=== PATIENT | male | born 1950 | race Caucasian/White ===

== ENCOUNTER → 2020-08-17 10:36 | Outpatient (REF) | payer MEDICARE, SELFPAY | LOC: ANHLAB 10:36 | PROVIDERS: PCP Family Medicine; Visit Provider Nurse Practitioner | DX: C44.529 Squamous cell carcinoma of skin of other part of trunk (principal) | CPT/HCPCS: 88305 ==

== ENCOUNTER → 2020-10-04 09:13 | Outpatient (REF) | payer MEDICARE, SELFPAY | LOC: ANHLAB 09:13 | PROVIDERS: PCP Family Medicine; Visit Provider Nurse Practitioner | DX: C44.529 Squamous cell carcinoma of skin of other part of trunk (principal); D22.5 Melanocytic nevi of trunk | CPT/HCPCS: 88305; 88331 ==

== ENCOUNTER 2024-11-13 13:14 | Outpatient (CLI) | payer MEDICARE, SELFPAY ==
--- OUTSIDE RECORDS SUMMARY | 2024-11-13 13:26 | XMS_ITS | Clinical Summary ---
Author Organization [facility] Medical Office Building B Address [address] [place] [address] Care Team Providers Care Fitness Centre Manager Name Role Phone Padma Schwartz MD Unavailable Suleiman Del Cid MD Unavailable Abhijit Jeter MD Unavailable [phone] Rafat Oswald MD Primary Care Provider [phone] Allergies No known active allergies Medications meclizine (ANTIVERT) 12.5 mg tablet Take 1 tablet (12.5 mg total) by mouth 3 (three) times a day as needed for dizziness Active mesalamine (LIALDA) 1.2 gram EC tablet Take 2 tablets (2.4 g total) by mouth daily 180 tablet 3 4 04/21/20 25 Active famotidine (PEPCID) 40 mg tablet Take 1 tablet (40 mg total) by mouth daily 90 tablet 3 4 Active mesalamine (CANASA) 1,000 mg suppository UNWRAP AND INSERT 1 SUPPOSITORY(1 000 MG) RECTALLY EVERY NIGHT 90 suppository 4 Active Active Problems Problem Noted Date Diagnosed Date Sensorineural hearing loss (SNHL) of both ears 0 12/03/2023 Assessment & Plan (12/03/2023 2:44 PM ROLL OR TAPE EDGE MACHINE OPERATOR): Hearing test 48 ounces of caffeine free and soda free fluid daily Consider physical therapy for neck Tinnitus 12/03/2023 Assessment & Plan (12/03/2023 2:44 PM ROLL OR TAPE EDGE MACHINE OPERATOR): Hearing test 48 ounces of caffeine free and soda free fluid daily Consider physical therapy for neck Ulcerative pancolitis without complication ([facility]) 04/26/2023 Gastroesophageal reflux dise ase with esophagitis without hemorrhage 04/26/2023 Neck pain, chronic 04/19/2023 Assessment & Plan (04/19/2023 9:53 AM CDT): Worsening neck pain associated with headaches Hx of DDD - seen by neurosurgeon which said no need for surgical intervention unless he has extremity issues States that he does have some dizziness at times Acute left-sided low back pain with left-sided s ciatica 12/03/2022 Schatzki's ring 06/28/2022 Vision changes 02/27/2022 Assessment & Plan (03/03/2022 10:16 PM CDT): Patient requests referral to hot stick worker, referral placed. Ulcerative rectosigmoiditis without complication ([facility]/HCC) 12/07/2021 Assessment & Plan (03/07/2023 8:01 PM CDT): Stable. Cont. Current prescription medications, mesalamine. Managed by GI. Esophageal dysphagia 12/06/2021 Tubular adenoma of colon 12/06/2021 History of vertigo 02/24/2021 Oscillopsia 12/10/2020 Degenerative disc disease, cervical 12/08/2020 Lightheadedness 12/03/2020 Assessment & Plan (12/03/2023 2:44 PM ROLL OR TAPE EDGE MACHINE OPERATOR): Hearing test 48 ounces of caffeine free and soda free fluid daily Consider physical therapy for neck Assessment & Plan (12/03/2020 8:11 PM ROLL OR TAPE EDGE MACHINE OPERATOR): Mildly symptomatic. Trial of meclizine. Patient will let me know the name of the PT company he would like for me to refer him to. Go to nearest ER if S/Sxs worsen. C-Spine xrays ordered. Chronic pain of right knee 12/03/2020 Assessment & Plan (12/03/2020 8:12 PM ROLL OR TAPE EDGE MACHINE OPERATOR): Requested referral to Ortho for further eval./mgmt. Gastroesophageal reflux disease without esophagi tis 02/24/2020 Assessment & Plan (04/19/2023 9:54 AM CDT): Continue pantoprazole 40 mg every day especially in setting of ibuprofen use for pain Assessment & Plan (03/07/2023 8:02 PM CDT): Asymptomatic. Stable. Continue current prescription medications, Protonix, famotidine, managed by GI. Assessment & Plan (02/24/2021 8:31 PM CDT): Clinically improved, continue current meds. BMI 27.0-27.9,adult 02/24/2020 History of colonic polyps 10/20/2019 Overview (10/20/2019): Added automatically from request for surgery [id number] Assessment & Plan (10/20/2019 11:10 AM ROLL OR TAPE EDGE MACHINE OPERATOR): Overdue for colonoscopy. Will have him set this up today. TADEO (obstructive sleep apnea) 11/19/2018 Assessment & Plan (02/25/2020 8:35 AM CDT): Managed by sleep medicine. Assessment & Plan (11/19/2018 1:32 PM ROLL OR TAPE EDGE MACHINE OPERATOR): Non-compliant with CPAP because cannot tolerate mask Will contact us with company name Sleep study done about 15-20 years ago Sleep study was done at [facility] Pt. Does snore, wakes up coughing, choking like reports heavy snoring and sounds Reports that he does get sleepy during the day if he sits down and sometimes falls asleep Explained to him the risk on ongoing uncontrolled/untreated TADEO Benign prostatic hyperplasia without lower urinary tract symptoms 11/19/2018 Overview (11/19/2018): S/P Turp Followed by Dr. Jose Jeter Assessment & Plan (02/25/2020 8:35 AM CDT): Managed by Urologist. Assessment & Plan (11/19/2018 1:30 PM ROLL OR TAPE EDGE MACHINE OPERATOR): S/P TURP Followed by Dr. Joes Jeter Needs Referral Symptoms improved since TURP Benign neoplasm of large intestine 02/21/2014 Overview (01/12/2017): BENIGN NEOPLASM LG BOWEL Resolved Problems Problem Noted Date Diagnosed Date Resolved Date Choking in adult 12/06/2021 03/01/2023 Benign paroxysmal positional vertigo of right ear 01/19/2021 02/24/2021 Assessment & Plan (02/22/2021 10:49 AM CDT): Resolved 64 ounces of caffeine free and soda free fluid daily Call if room spinning returns Call if Neurology referral requested for memory impairment Assessment & Plan (01/19/2021 2:13 PM CDT): Right Posterior Benign Positional Vertigo treated with Nhung maneuver today Follow up in a few weeks May perform mild neck stretching exercises Post-Nhung instruction discussed and Handout provided Benign paroxysmal positional vertigo of left ear 01/07/2021 02/24/2021 Assessment & Plan (02/22/2021 10:46 AM CDT): Resolved today 64 ounces of caffeine free and soda free fluid daily Call if room spinning returns Assessment & Plan (01/07/2021 9:13 AM CDT): Left Benign Positional Vertigo treated with Nhung Maneuver today Post-Nhung instruction discussed and Handout provided Ulcerative colitis with complication 10/20/2019 03/01/2023 Overview (10/20/2019): Added automatically from request for surgery [id number] Assessment & Plan (02/24/2021 8:31 PM CDT): Asx. Continue current therapy. Assessment & Plan (12/03/2020 8:11 PM ROLL OR TAPE EDGE MACHINE OPERATOR): Asx, labs ordered. Assessment & Plan (02/25/2020 8:35 AM CDT): Managed by GI. Assessment & Plan (10/20/2019 11:09 AM ROLL OR TAPE EDGE MACHINE OPERATOR): Pt appears to have mild UC disease. Last colonoscopy showed inflammatory changes in rectum and distal sigmoid. Pt says he is not on daily medication and usually does not have symptoms. He has had 2 flares in the last 6 years which were cleared up by about 1 month use of Canasa suppository and budesonide 3mg daily. Will start on Canasa suppositories every night for at least 1-2 months and budesonide taper over 1 month. Will setup colonoscopy as patient is overdue. If patient continues to have symptoms after finishing budesonide, he should contact our office. Pt verbalized understanding. Bronchitis 11/04/2015 11/19/2018 Overview (01/11/2017): Bronchitis Immunizations Name Administration Dates Next Due COVID-19 mRNA (O[employer]) 0.3 m L (30 mcg) vaccine (12 years and up) 07/03/2023 Influenza, Quad, Adjuvantate d, Intramuscular 06/29/2022 Influenza, Quadrivalent, Hig h Dose, Preservative Free, Intrr 07/03/2023,06/27/2021,05/25/2020 Influenza, Quadrivalent, Spl it, Intramuscular 07/27/2015 Influenza, Quadrivalent, Spl it, Preservative Free, Intramuscular 07/10/2018,07/09/2018 Influenza, Split 08/24/2009 Influenza, Trivalent, High D ose, Split, Preservative Free, Intramuscular 07/15/2019,07/03/2018,07/15/2017 Influenza, Trivalent, IM (MDV) 07/25/2013,2011,08/11/2009 Influenza, Trivalent, Preser vative Free, Intramuscular 07/11/2016,07/13/2015,07/27/2014,07/25,09/11/2012 Pneumococcal Conjugate PCV 13 07/23/2016 Pneumococcal Conjugate Pcv20 07/03/2023 Pneumococcal Polysaccharide PPV23 11/19/2018 TD Preservative Free 05/21/2013 Tdap 07/15/2017,08/08/2007 ZOSTER LIVE 08/21/2013 Surgical History Surgery Date Site/Laterality Comments OTHER SURGICAL HISTORY 10/08/2007 - 10/07/2008 left inguinal hernia: herniorraphy OTHER SURGICAL HISTORY 10/08/1973 - 10/07/1974 tympanic rupture: surgical repair HERNIA REPAIR COLONOSCOPY 07/19/2016 COLONOSCOPY 12/03/2019 Medical History Medical History Date Comments Hx Other Medical left inguinal h ernia Hx Other Medical tympanic ruptur e; Laterality: right Sleep apnea Ulcerative colitis (HCC) GERD (gastroesophageal reflux disease) Family History Medical History Relation Name Comments Insomnia Mother Relation Name Status Comments Father Mother Alive Social History Tobacco Use Types Packs/Day Years Used Date Smoking Tobacco: Former Cigarettes 0.3 10 0 10/08/1969 - 10/08/1979 Smokeless Tobacco: Never Tobacco Cessation:Counseling Given: Not Answered Comments:Occasional cannabis use Alcohol Use Standard Drinks/Week Comments No 0 (1 standard drink = 0.6 oz pur e alcohol) AUDIT-C Answer Date Recorded Q1: How often do you have a drink containing alcohol? 4 or more times a week 04/21/2024 Q2: How many drinks containi ng alcohol do you have on a typical day when you are drinking? 3 or 4 Q3: How often do you have si x or more drinks on one occasion? Weekly 04/21/2024 PHQ-2 Answer Date Recorded PHQ-2 Total Score (If total score is 3 or more points, staff should administer the PHQ-9) 0 02/22/2023 Personal Safety Answer Date Recorded Getting School Help Needed Not on file 09/24 Sex and Gender Information Value Date Recorded Sex Assigned at Not on file Legal Sex Male 11:54 PM ROLL OR TAPE EDGE MACHINE OPERATOR Gender Identity Male 11/01/2021 11:42 AM ROLL OR TAPE EDGE MACHINE OPERATOR Sexual Orientation Not on file Obstetrics History Last Filed Vital Signs Vital Sign Reading Time Taken Comments Blood Pressure 149/70 04/21/2024 2:05 PM CDT Pulse 76 04/21/2024 2:05 PM CDT Temperature 36.5 C (97.7 F) 12/03/2023 2:04 PM ROLL OR TAPE EDGE MACHINE OPERATOR Respiratory Rate 16 04/19/2023 9:34 AM CDT Oxygen Saturation 99% 04/21/2024 2:05 PM CDT Inhaled Oxygen Concentration - - Weight 89.4 kg (197 lb) 04/21/2024 2:05 PM CDT Height 182.9 cm (6') 04/21/2024 2:05 PM CDT Body Mass Index 26.72 04/21/2024 2:05 PM CDT Plan of Treatment Upcoming Encounters Date Type Department Care Team (Late st Contact Info) Description 11/19/2024 11:35 AM ROLL OR TAPE EDGE MACHINE OPERATOR Hospital Encounter [facility] [address] [place] [address] Padma Schwartz MD [address] [place] [address] 11/19/2024 11:35 AM ROLL OR TAPE EDGE MACHINE OPERATOR - 11/19/2024 12:05 PM ROLL OR TAPE EDGE MACHINE OPERATOR Surgery [address] [address] Padma Schwartz MD [address] [place] [address] COLONOSCOPY Scheduled Procedures Name Priority Associated Diagnoses Date/Ti me COLONOSCOPY Ulcerative pancolitis without complication (CMS/HCC) (HCC) Tubular adenoma of colon 11/19/2024 11:35 AM ROLL OR TAPE EDGE MACHINE OPERATOR Health Maintenance Due Date Last Done Comments Hepatitis B Screening 1968 Zoster Vaccine (2 of 3) 10/16/2013 08/21/2013 Depression Screening 03/01/2024 03/01/2023, 11/29/2022, 02/27/2022, Additional history exists Fall Risk Assessment 03/01/2024 03/01/2023, 11/29/2022, 02/27/2022, Additional history exists Well Visit 65+ 03/01/2024 03/01/2023, 02/06, 02/24/2021, Additional history exists Covid-19 Vaccine (2023- 5 season) 2024 07/03/2023, 06/29/2022, 03/02/2022, Additional history exists Influenza Vaccine (#1) 2024 , 06/29/2022, 06/27/2021, Additional history exists DTaP/Tdap/Td Vaccine (4 - Td or Tdap) 07/15/2027 07/15/2017, 05/21/2013, 08/08/2007 Colon Cancer Screening-Colonoscopy 01/19/2032 01/18/2022, 12/03/2019, 07/19/2016, Additional history exists Abdominal Aortic Aneurysm (A AA) Screen Completed 06/27/2016 Hepatitis C Screening Completed 02/24/2020 Colon Cancer Screening-CT Colonography Discontinued 01/18/2022, 12/03/2019, 07/19/2016, Additional history exists Colon Cancer Screening-DNA Stool Discontinued 01/18/2022, 12/03/2019, 07/19/2016, Additional history exists Colon Cancer Screening-FIT Discontinued 01/18, 12/03/2019, 07/19/2016, Additional history exists Colon Cancer Screening-Sigmoidoscopy Discontinued 01/18/2022, 12/03/2019, 07/19/2016, Additional history exists Pneumococcal vaccine 65+ Completed 023, 11/19/2018, 07/23/2016 Prostate Cancer Screening-PSA Discontinued , 11/23/2021, 11/26/2020, Additional history exists Procedures Procedure Name Priority Date/Time Associated Diagnosis Comments PSA SCREEN Routine 11/09/2023 10:51 AM ROLL OR TAPE EDGE MACHINE OPERATOR COLONOSCOPY 01/18/2022 9:45 AM CDT HEPATITIS C ANTIBODY Routine 02/24/2020 4:39 PM CDT Encounter for hepatitis C screening test for low risk patient AORTIC SONOGRAPHY Routine 06/27/2016 9:1 9 AM CDT from Last 3 Months or Most Recently Relevant to Health Maintenance Results * PSA screen (11/09/2023 10:51 AM ROLL OR TAPE EDGE MACHINE OPERATOR) PSA-Total 3.57 <=6.20 ng/mL [facility] ([facility]ON) Comment: Interpretive Data AGE SEX REFERENCE INTERVAL 0 minutes-150 years Female None 0 minutes-49 years Male None 50-59 years Male 0-3.90 60-69 years Male 0-5.40 70-79 years Male 0-6.20 80-150 years Male 0-6.20 The [employer] PSA Total assay procedure was used. Results from different manufacturers or methods may not be comparable. Serial testing should be performed using the same method. Current interpretive data last revised 22. Blood 11/09/2023 10:5 1 AM ROLL OR TAPE EDGE MACHINE OPERATOR 11/09/2023 11:51 AM ROLL OR TAPE EDGE MACHINE OPERATOR Abhijit Jeter MD LAB BLOOD ORDERABLES F inal Result [facility] ([facility]) [address] [facility] Department [place] [address] * COLONOSCOPY (01/18/2022 9:45 AM CDT) Anatomical Region Laterality Modality Other Narrative Procedure Note Padma Schwartz MD - 01/18/2022 9:45 AM CDT [facility] Patient Name: Jaziel Simms Procedure Date: 01/18/2022 9:45 AM Date of : 1950 Admit Type: Outpatient Age: 71 Gender: Male Attending MD: Padma Schwartz M.D. Room: [facility] ENDOSCOPY ROOM 1 Note Status: Finalized Patient Profile: This is a 71 year old male. Long history of ulcer colitis. Colonoscopy last year showed adenomapolyps and the mild inflammatory changes in left side ofthe colon. Colonoscopy for evaluation Procedure: Colonoscopy Indications: High risk colon cancer surveillance: Personalhistory of colonic polyps, High risk colon cancer surveillance: Ulcerative pancolitis of 8 (or more) years duration, Last colonoscopy: November 2019 Referring MD: Sheila Mauro D.O. Providers: Padma Schwartz M.D. Impression: - Ulcerative colitis. Inflammation was found fromthe descending colon to the cecum. This was moderate in severity, worsened compared to previousexaminations. Biopsied. - The sigmoid colon is normal. Biopsied. - The rectum is normal. Biopsied. - One 6 mm polyp in the ascending colon, removedwith a cold snare. Resected and retrieved. - Internal hemorrhoids. Recommendation: - Await pathology results. - Repeat colonoscopy in 1 year for surveillance. - Continue present medications. - Start prednisone 40 mg daily for 1 week thentaper of over 1 month. After the prednisone will keep the patient on Uceris 9 mg daily for 6 months to 1year. He may need immunosuppressive medications if no endoscopic healing in the next colonoscopy Medicines: Monitored Anesthesia Care Complications: No immediate complications. Estimated Blood Loss: Estimated blood loss: none. Procedure: Pre-Anesthesia Assessment: - Prior to the procedure, a History and Physicalwas performed, and patient medications and allergieswere reviewed. The patient's tolerance of previous anesthesia was also reviewed. The risks andbenefits of the procedure and the sedation options and risks were discussed with the patient. All questions were answered, and informed consent was obtained. Prior Anticoagulants: The patient has taken noanticoagulant or antiplatelet agents. ASA Grade Assessment: II -A patient with mild systemic disease. After reviewing the risks and benefits, the patient was deemed in satisfactory condition to undergo the procedure. The benefits, risks and alternatives of theprocedure and sedation were discussed and informed consentwas obtained. All questions were answered. Please referto the signed informed consent document in the medical record. The bowel preparation used was Miralax and bisacodyl tablets via split dose instruction. The scope was passed under direct vision. The Pediatric Colonoscope PCF-H190L [id number] was introducedthrough the anus and advanced to the the cecum, identifiedby appendiceal orifice and ileocecal valve. Thequality of the bowel preparation was good. Bowel prep was administered using a split dose. Findings: The perianal and digital rectal examinations were normal. Inflammation characterized by congestion (edema), erosions anderythema was found in a continuous and circumferential pattern from the descending colon to the cecum. The inflammation was moderate in severity, and when compared to previous examinations, the findingsare worsened. Biopsies were taken with a cold forceps for histology fromthe right side of the colon and left side of the colon.. The sigmoid colon appeared normal. Biopsies were taken with a cold forceps for histology from the left side of the colon. The rectum appeared normal. Biopsies were taken with a cold forcepsfor histology. A 6 mm polyp was found in the ascending colon. The polyp was sessile. The polyp was removed with a cold snare. Resection and retrieval were complete. Internal hemorrhoids were found during retroflexion. The hemorrhoids were medium size Electronically signed by Padma cShwartz M.D. Padma Schwartz M.D. 01/18/2022 11:51:23 AM Number of Addenda: 0 Note Initiated On: 01/18/2022 9:45 AM Procedure Code(s): --- Professional --- 54022, Colonoscopy, flexible; with removal of tumor(s), polyp(s), or other lesion(s) by snare technique 95414, 59, Colonoscopy, flexible; with biopsy, single or multiple Diagnosis Code(s): --- Professional --- Z86.010, Personal history of colonic polyps K51.00, Ulcerative (chronic) pancolitis without complications K64.8, Other hemorrhoids D12.2, Benign neoplasm of ascending colon CPT copyright 2020 [employer]. All rights reserved. The codes documented in this report are preliminary and upon truck repair service estimator reviewmay be revised to meet current compliance requirements. Recognized by the [employer] for promoting quality in endoscopy Padma Schwartz MD ENDOSCOPY PROCEDURES Final Result * Hepatitis C antibody (02/24/2020 4:39 PM CDT) Hep C Ab Nonreactive Nonreactive [facility]IO [facility] ([facility]) Comment: Interpretive Data Nonreactive: Antibodies to HCV not detected. Does NOT exclude the possibility of recent exposure to HCV. Equivocal: Equivocal for HCV antibodies. Supplemental molecular testing will be automatically performed to determine infection status in accordance with current CDC screening recommendations. Reactive: Positive for HCV antibodies. This may represent current or past HCV infection. Supplemental molecular testing will be automatically performed to determine current infection status in accordance with current CDC screening recommendations. Interpretive data was last revised on 2019. Testing performed by: [facility], [address] [place] [address]., [id number] Blood specimen (specimen) 02/24/2020 4:39 PM CDT 02/25/2020 9:35 AM CDT us Sheila Mauro DO LAB MICROBIOLOGY - GENERAL ORDERABLES Final Result [facility] ([facility]) [facility] Department [place] [address] * AORTIC SONOGRAPHY (06/27/2016 9:19 AM CDT) Anatomical Region Laterality Modality N/A Ultrasound 06/27/2016 9:19 AM CDT Narrative 06/27/2016 11:01 AM CDT US Aorta Acc#: [id number] DATE OF EXAM: Jun 27 2016 CLINICAL HISTORY: Abdominal aortic aneurysm assessment. RESULT: Multiple transverse and longitudinal images of the abdominal aorta obtained. No focal abdominal aortic aneurysm is identified. The maximal transverse dimension of the abdominal aorta is 29 mm proximally. IMPRESSION: NO ABDOMINAL AORTIC ANEURYSM IDENTIFIED. Interpreting Physician: KRISTA KRUSE M.D. Read on: Jun 27 2016 9:25A Transcribed by: TRUDY On: Jun 27 2016 11:00A Approved Electronically by: KRISTA KRUSE M.D. on: Jun 27 2016 11:01A Attending: DR YOUNG BARTHOLOMEW Requesting: DR YOUNG BARTHOLOMEW Requesting Attending Attending ID: [id number] Requesting ID: [id number] Report To 1 ID: [id number] Report To 1 Name: DR YOUNG BARTHOLOMEW Report To 1 FAX: [phone] NextGen Order #: Procedure Note Provider, MD Susie - 01/29/2017 US Aorta Acc#: [id number] DATE OF EXAM: Jun 27 2016 CLINICAL HISTORY: Abdominal aortic aneurysm assessment. RESULT: Multiple transverse and longitudinal images of the abdominal aortaobtained. No focal abdominal aortic aneurysm is identified. The maximaltransverse dimension of the abdominal aorta is 29 mm proximally. IMPRESSION: NO ABDOMINAL AORTIC ANEURYSM IDENTIFIED. Interpreting Physician: KRISTA KRUSE M.D. Read on: Jun 27 2016 9:25A Transcribed by: TRUDY On: Jun 27 2016 11:00A Approved Electronically by: KRISTA KRUSE M.D. on: Jun 27 2016 11:01A Attending: DR YOUNG BARTHOLOMEW Requesting: DR YOUNG BARTHOLOMEW Requesting Attending Attending ID: [id number] Requesting ID: [id number] Report To 1 ID: [id number] Report To 1 Name: DR YOUNG BARTHOLOMEW Report To 1 FAX: [phone] NextGen Order #: us Historical Provider IMWan US PROCEDURES Final R esult from Last 3 Months or Most Recently Relevant to Health Maintenance Insurance [employer]IONS [facility] HMO REF MEDICARE SOLUTIONS Advance Directives For more information, please contact: [phone] * Full Code (Latest Code Status on File) Date Activated Date Inactivated Comments 01/18/2022 9:27 AM 01/18/2022 4:25 PM * Full Code Date Activated Date Inactivated Comments 01/18/2022 9:27 AM 01/18/2022 9:27 AM * Full Code Date Activated Date Inactivated Comments 12/03/2019 7:48 AM 12/03/2019 2:02 PM * Full Code Date Activated Date Inactivated Comments 12/03/2019 7:48 AM 12/03/2019 7:48 AM Care Teams Fitness Centre Manager Relationship Specialty Start Date End Date Rafat Oswald MD [address] [address] PCP - General Family Practice 11/07/24 Padma Schwartz MD Consulting Physician Gastroenterology 02/24/20 Suleiman Del Cid MD Consulting Physician Neurology 02/24/20 Abhijit Jeter MD Consulting Physician Urology 02/24/20
--- OUTSIDE RECORDS SUMMARY | 2024-11-13 13:26 | XMS_ITS | Continuity of Care Document ---
Author Organization [facility] Address [address] [place] [address] [address] [place] [address] Phone Care Team Providers Care Weight Engineer Name Role Phone Clarence MACARIO Katey Unavailable Unavailable Allergies, Adverse Reactions, Alerts Substance Reaction Status Criticality No Known Allergies Active No Inform ation Medications Medication Instructions Dosage Effective Dates (start - stop) Status Comments mesalamine 1.2 gram tablet,delayed release take 2 tablet by oral route every day with a meal 2.4 G - Active famotidine 40 mg tablet take 1 tablet by oral route every day at bedtime 40 MG - Active Procedures Procedure Date Fundus Photography W/ Report Eye Exam & Treatment Fundus Photography W/ Report Eye Exam, New Patient Advance Directives Directive Yes / No Effective Date File Name No Information Encounters Encounter Description Practice Location Reason(s) For Visit Diagnoses Date Provider Providers Copied on Encounter [facility], [address] [place], [place] [address], [place], [place], [id number], tel:[phone] SEC [place] [facility] Professional Complete Exam (chief complaint) Age-related nuclear cataract, bilateralIris nevus, rightMacular RPE mottling 4 Clarence OD Katey. [address] [place] [address], [address], [place], [place], [address], . tel:[phone] Referring Provider: Sheila Mauro DO, [address] [facility] [address], [place], [address]. tel:[phone] [facility] [employer], [address] [place] [address] [address], [place], [place], [id number], [place] tel:[phone] SEC [place] Professional Complete Exam (chief complaint) Age-related nuclear cataract, bilateralMacul ar RPE mottlingIris nevus, right 3 Mason Brariga. [address] [facility], [address], [place], [place], [address], [place]. tel:[phone] Referring Provider: Sheila Mauro DO, [address] [facility] [address], [place], [address]. tel:[phone] Family History Family Member Type Diagnosis Age At Onset No Information Payers Payer name Insurance type Covered republican ID Theresa burt(s) AARP Medicare Complete CI [id number] Social History Type Description Quantity Date Captured Comments Alcohol Use Details Caffeine Use Details Tobacco Use Status Ex-cigarette smoker 024 Smoking Status Former smoker Smoking Tobacco Use Details Cigarette: Age Stopped: 31 Cigarette: 10 Cigarettes per day Sex Male Chief Complaint And Reason For Visit From encounter dated '11/06/2023 10:45'. Complete Exam (chief complaint). Description: The 73 year old patient presents for a complete exam ou. Monitoring cataracts ou. Patient denies any changes in vision ou. Patient wears OTC reading glasses when needed. Reason For Referral Reason For Referral No Information Plan Of Treatment Date Type Action Status Goal Tobacco cessation counseling completed Appointment Jaziel Simms BOOKED Patient Education Cataracts: Care Instruc tions completed Patient Education The Eye: Anatomy Sketch completed History Of Present Illness Encounter Date Complaint History Of Prese nt Illness Complete Exam The 73 year old patient presents for a complete exam ou. Monitoring cataracts ou. Patient denies any changes in vision ou. Patient wears OTC reading glasses when needed. Complete Exam The 72 year old patient presents for evaluation of Complete Exam in the right eye and left eye. Patient states he is wearing reading glasses for up close that seem to help with reading. Patient states he has not had an eye exam for years and his PCP wanted him to have one. Patient states he does fine with just his readers, doesn't want an RX to wear glasses. Functional Status Date Functional Assessmen t No Information Instructions Date Instruction Additional Infor mily Impression/Plan Impression/Plan Assessments Type Assessment Date assessment Age-related nuclear cataract, bi lateral assessment Iris nevus, right assessment Macular RPE mottling Patient Care Teams Name Effective Dates (start - stop) Status Members No Information
--- OUTSIDE RECORDS SUMMARY | 2024-11-13 13:26 | XMS_ITS | Referral Summary ---
Author Organization [facility] Address [address] [place] [address] Care Team Providers Care Compliance Aide Name Role Phone Padma Schwartz MD Unavailable [phone] Suleiman Del Cid MD Unavailable Abhijit Jeter MD Unavailable [phone] Rafat Oswald MD Primary Care Provider [phone] Allergies No known active allergies Medications meclizine [...] 12/03/2023 Assessment & Plan (12/03/2023 2:44 PM ACTIVATED SLUDGE ATTENDANT): Hearing test 48 ounces of caffeine free and soda free fluid daily Consider physical therapy for neck Tinnitus 12/03/2023 Assessment & Plan (12/03/2023 2:44 PM ACTIVATED SLUDGE ATTENDANT): Hearing test 48 ounces of caffeine free and soda free fluid daily Consider physical therapy for neck Ulcerative pancolitis without complication ([facility]) 04/26/2023 Gastroesophageal reflux dise ase with esophagitis [...] 10:16 PM CDT): Patient requests referral to coil cleaner, referral placed. 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 Cont. Current prescription medications, mesalamine. Managed by GI. Esophageal dysphagia 12/06/2021 Tubular adenoma of colon 12/06/2021 History of vertigo 02/24/2021 Oscillopsia 12/10/2020 Degenerative disc disease, cervical 12/08/2020 Lightheadedness 12/03/2020 Assessment & Plan (12/03/2023 2:44 PM ACTIVATED SLUDGE ATTENDANT): Hearing test 48 ounces of caffeine free and soda free fluid daily Consider physical therapy for neck Assessment & Plan (12/03/2020 8:11 PM ACTIVATED SLUDGE ATTENDANT): Mildly symptomatic. Trial of meclizine. Patient will let me know the name of the PT company he would like for me to refer him to. Go to nearest ER if S/Sxs worsen. C-Spine xrays ordered. Chronic pain of right knee 12/03/2020 Assessment & Plan (12/03/2020 8:12 PM ACTIVATED SLUDGE ATTENDANT): Requested referral to Ortho for further eval./mgmt. [...] (10/20/2019): Added automatically from request for surgery [id number] Assessment & Plan (10/20/2019 11:10 AM ACTIVATED SLUDGE ATTENDANT): Overdue for colonoscopy. Will have him set this up today. TADEO (obstructive sleep apnea) 11/19/2018 Assessment & Plan (02/25/2020 8:35 AM CDT): Managed by sleep medicine. Assessment & Plan (11/19/2018 1:32 PM ACTIVATED SLUDGE ATTENDANT): Non-compliant with CPAP because cannot tolerate mask Will contact us with company name Sleep study done about 15-20 years ago Sleep study was done [facility] Pt. Does snore, wakes up coughing, [...] Urologist. Assessment & Plan (11/19/2018 1:30 PM ACTIVATED SLUDGE ATTENDANT): S/P TURP Followed by Dr. Jose Jeter Needs Referral Symptoms improved since TURP [...] (10/20/2019): Added automatically from request for surgery [id number] Assessment & Plan (02/24/2021 8:31 PM CDT): Asx. Continue current therapy. Assessment & Plan (12/03/2020 8:11 PM ACTIVATED SLUDGE ATTENDANT): Asx, labs ordered. Assessment & Plan (02/25/2020 8:35 AM CDT): Managed by GI. Assessment & Plan (10/20/2019 11:09 AM ACTIVATED SLUDGE ATTENDANT): Pt appears to have mild UC disease. [...] Name Administration Dates Next Due COVID-19 mRNA ([place]) 0.3 m L (30 mcg) vaccine (12 [...] Free 05/21/2013 Tdap 07/15/2017,08/08/2007 ZOSTER LIVE 08/21/2013 Social History Tobacco Use Types Packs/Day Years [...] on file Legal Sex Male 11:54 PM ACTIVATED SLUDGE ATTENDANT Gender Identity Male 11/01/2021 11:42 AM ACTIVATED SLUDGE ATTENDANT Sexual Orientation Not on file Last Filed Vital Signs Vital Sign Reading Time Taken Comments Blood Pressure 149/70 04/21/2024 2:05 PM CDT Pulse 76 04/21/2024 2:05 PM CDT Temperature 36.5 C (97.7 F) 12/03/2023 2:04 PM ACTIVATED SLUDGE ATTENDANT Respiratory Rate 16 04/19/2023 9:34 AM CDT Oxygen Saturation 99% 04/21/2024 2:05 PM CDT Inhaled Oxygen Concentration - - Weight 89.4 kg (197 lb) 04/21/2024 2:05 PM CDT Height 182.9 cm (6') 04/21/2024 2:05 PM CDT Body Mass Index 26.72 04/21/2024 2:05 PM CDT Plan of Treatment Upcoming Encounters Date Type Department Care Team (Late st Contact Info) Description 11/19/2024 11:35 AM ACTIVATED SLUDGE ATTENDANT Hospital Encounter [address] [address] Padma Schwartz MD [address] [facility] [address] [place] [address] 11/19/2024 11:35 AM ACTIVATED SLUDGE ATTENDANT - 11/19/2024 12:05 PM ACTIVATED SLUDGE ATTENDANT Surgery [facility] [address] [place] [address] Padma Schwartz MD [address] [facility] [address] [place] [address] COLONOSCOPY Scheduled Procedures Name Priority Associated Diagnoses Date/Ti me COLONOSCOPY Ulcerative pancolitis without complication (CMS/HCC) (HCC) Tubular adenoma of colon 11/19/2024 11:35 AM ACTIVATED SLUDGE ATTENDANT Procedures Procedure Name Priority Date/Time Associated Diagnosis Comments PSA SCREEN Routine 11/09/2023 10:51 AM ACTIVATED SLUDGE ATTENDANT COLONOSCOPY 01/18/2022 9:45 AM CDT HEPATITIS C ANTIBODY Routine 02/24/2020 4:39 PM CDT Encounter for hepatitis C screening test for low risk patient AORTIC SONOGRAPHY Routine 06/27/2016 9:1 9 AM CDT from Last 3 Months or Most Recently Relevant to Health Maintenance Results * PSA screen (11/09/2023 10:51 AM ACTIVATED SLUDGE ATTENDANT) PSA-Total 3.57 <=6.20 ng/mL [facility]) Comment: Interpretive Data AGE SEX REFERENCE INTERVAL [...] revised 22. Blood 11/09/2023 10:5 1 AM ACTIVATED SLUDGE ATTENDANT 11/09/2023 11:51 AM ACTIVATED SLUDGE ATTENDANT us Abhijit Jeter MD LAB BLOOD ORDERABLES F inal Result [facility] [place]) [address] [place] [address] * COLONOSCOPY (01/18/2022 9:45 AM CDT) Anatomical Region Laterality Modality Other Narrative Procedure Note Padma Schwartz MD - 01/18/2022 9:45 AM CDT [facility] Patient Name: Jaziel Simms Procedure Date: 01/18/2022 9:45 AM Date of : 1950 Admit Type: Outpatient Age: 71 Gender: Male Attending MD: Padma Schwartz M.D. Room: [facility] ENDOSCOPY ROOM 1 Note Status: Finalized Patient [...] under direct vision. The Pediatric Colonoscope [id number]-[id number] was introducedthrough the anus and advanced to [...] were medium size Electronically signed by Padma Schwartz M.D. Padma Schwartz M.D. 01/18/2022 11:51:23 AM Number of Addenda: 0 Note Initiated On: 01/18/2022 9:45 AM Procedure Code(s): --- Professional --- 38312, Colonoscopy, flexible; with removal of tumor(s), polyp(s), or other lesion(s) by snare technique 24937, 59, Colonoscopy, flexible; with biopsy, single or multiple Diagnosis Code(s): --- Professional --- Z86.010, Personal history of colonic polyps K51.00, Ulcerative (chronic) pancolitis without complications K64.8, Other hemorrhoids D12.2, Benign neoplasm of ascending colon CPT copyright 2020 [place] [employer]. All rights reserved. The codes documented in this report are preliminary and upon bow tacker reviewmay be revised to meet current compliance requirements. Recognized by the [place] [employer]intestinal [employer] for promoting quality in endoscopy Padma Schwartz MD ENDOSCOPY PROCEDURES Final Result * Hepatitis C antibody (02/24/2020 4:39 PM CDT) Hep C Ab Nonreactive Nonreactive [facility]) Comment: Interpretive Data Nonreactive: Antibodies to HCV [...] last revised on 2019. Testing performed by: [facility], [address] [place] [address], [place]., [address] Blood specimen (specimen) 02/24/2020 4:39 PM CDT 02/25/2020 9:35 AM CDT us Sheila Mauro DO LAB MICROBIOLOGY - GENERAL ORDERABLES Final Result [facility]) [address] [facility] Department [place] [address] * AORTIC SONOGRAPHY (06/27/2016 9:19 AM CDT) Anatomical Region Laterality Modality N/A Ultrasound 06/27/2016 9:19 AM CDT Narrative 06/27/2016 11:01 AM CDT US Aorta Acc#: [id number] DATE OF EXAM: Jun 27 2016 CLINICAL [...] DR YOUNG BARTHOLOMEW Requesting Attending Attending ID: [id number] Requesting ID: [id number] Report To 1 ID: [id number] Report To 1 Name: DR YOUNG BARTHOLOMEW Report To 1 FAX: [phone] NextGen Order #: Procedure Note Provider, MD Susie - 01/29/2017 US Aorta Acc#: [id number] DATE OF EXAM: Jun 27 2016 CLINICAL [...] DR YOUNG BARTHOLOMEW Requesting Attending Attending ID: [id number] Requesting ID: [id number] Report To 1 ID: [id number] Report To 1 Name: DR YOUNG BARTHOLOMEW Report To 1 FAX: [phone] NextGen Order #: Historical Provider MD OLEA US PROCEDURES Final R esult from Last 3 Months or Most Recently Relevant to Health [place] [address] MEDICARE SOLUTIONS [facility] MEDICARE Address: [facility] [address] [place] [address] [facility] MDCR HMO REF MEDICARE SOLUTIONS Advance Directives For more information, please contact: [phone] * Full Code (Latest Code Status on File) Date Activated Date Inactivated Comments 01/18/2022 9:27 AM 01/18/2022 4:25 PM * Full Code Date Activated Date Inactivated Comments 01/18/2022 9:27 AM 01/18/2022 9:27 AM * Full Code Date Activated Date Inactivated Comments 12/03/2019 7:48 AM 12/03/2019 2:02 PM * Full Code Date Activated Date Inactivated Comments 12/03/2019 7:48 AM 12/03/2019 7:48 AM Care Teams Compliance Aide Relationship Specialty Start Date End Date Rafat Oswald MD [address] [place] [address] PCP - General Family Practice 11/07/24 Padma Schwartz MD Consulting Physician Gastroenterology 02/24/20 Suleiman Del Cid MD Consulting Physician Neurology 02/24/20 Abhijit Jeter MD Consulting Physician Urology 02/24/20
--- OUTSIDE RECORDS SUMMARY | 2024-11-13 13:26 | XMS_ITS | Clinical Summary ---
Author Organization [facility] Address [address] [place] [address] Phone Care Team Providers Care Sewer Tapper Name Role Phone Unavailable Primary Care Provider Unavailabl e Allergies No known active allergies Medications aspirin (ECOTRIN EC) 81 mg Tablet, Delayed Release (E.C.) Take 81 mg by mouth daily. Active famotidine (PEPCID) 10 mg tablet Take 10 mg by mouth 1 time daily as needed. Active oxyCODONE-aceta minophen (PERCOCET) 2.5-325 mg Tablet Take 1 Tablet by mouth every 4 hours as needed for Pain, Mild. Max Daily Amount: 6 Tablets 24 Tablet 02/08/2018 Active Active Problems Problem Noted Date Diagnosed Date Benign prostatic hyperplasia with urinary freque ncy 02/08/2018 Social History Tobacco Use Types Packs/Day Years Used Date Smoking Tobacco: Former Cigarettes 1 10 1 3 - 1982 Smokeless Tobacco: Never Alcohol Use Standard Drinks/Week Comments Yes 0 (1 standard drink = 0.6 oz pur e alcohol) fifth of vodka per week Sex and Gender Information Value Date Recorded Sex Assigned at Not on file Legal Sex Male 4:39 PM CDT Gender Identity Not on file Sexual Orientation Not on file Last Filed Vital Signs Vital Sign Reading Time Taken Comments Blood Pressure 123/68 02/08/2018 5:32 PM CDT Pulse 75 02/08/2018 5:32 PM CDT Temperature 36.7 C (98 F) 02/08/2018 5:32 PM CDT Respiratory Rate 16 02/08/2018 5:32 PM CDT Oxygen Saturation 96% 02/08/2018 5:32 PM CDT Inhaled Oxygen Concentration - - Weight 93.5 kg (206 lb 3.2 oz) 02/08/2018 12:46 PM CDT Height 182.9 cm (6') 02/08/2018 12:46 PM CDT Body Mass Index 27.97 02/08/2018 12:46 PM CDT Plan of Treatment Health Maintenance Due Date Last Done Comments DTAP/TDAP/TD VACCINES (1 - Tdap) 1970 COLORECTAL SCREENING 1996 Colorectal Cancer Screening 1996 FIT-DNA Q 3 years 1996 FIT/FOBT Q 1 year 1996 Flex Sig/CT Colonography Q 5 years 1996 PNEUMOCOCCAL VACCINE 65+ YEARS (1 of 1 - PCV) 03/04/20 ZOSTER VACCINE (1 of 2) 2001 INFLUENZA VACCINE (#1) 2024 RSV VACCINE (60+ or ) (1 - 1-dose 75+ series) 2026 Medical Devices Implanted Type Area Varnishing Unit Tool Setter Device Identifier Shelf Expiration Date Model / Serial / Lot Imp Prostate Urolift [id number] - [id number] Implanted:Qty: 1 on 02/08/2018 by Abhijit Jeter MD at [facility] Other NEOTRACT 05/20/2019 [id number] / / [id number] Imp Prostate Urolift [id number] - [id number] Implanted:Qty: 1 on 02/08/2018 by Abhijit Jeter MD at [facility] Other N/A: Urinary Bladder NEOTRACT 05/20/2019 [id number] / / [id number] Imp Prostate Urolift Uw118-6 - [id number] Implanted:Qty: 2 on 02/08/2018 by Abhijit Jeter MD at [facility] Other N/A: Urinary Bladder NEOTRACT 06/15/2019 [id number] / / [id number] Insurance MEDICARE PART A AND B Advance Directives For more information, please contact: [phone] * Full Code (Latest Code Status on File) Date Activated Date Inactivated Comments 02/08/2018 2:18 PM 02/08/2018 7:56 PM * Full Code Date Activated Date Inactivated Comments 02/08/2018 12:37 PM 02/08/2018 2:18 PM
[2024-11-13 21:04] LABS: Prostate Specific Antigen 4.9 ng/mL (< OR = 4.0)
== END 2024-11-13 13:15 | disposition home or self-care (01) ==
PROVIDERS: PCP Nurse Practitioner Adult Health; Visit Provider Urology
DX: N40.1 Benign prostatic hyperplasia with lower urinary tract symptoms (principal)
CPT/HCPCS: 36415; 84153

== ENCOUNTER 2025-01-12 09:17 | Outpatient (CLI) | payer MEDICARE, SELFPAY ==
--- NOTE | ~2025-01-12 | XR_ITS ---
Right Shoulder Technique: AP and scapular Y views were obtained. Clinical History: Pain Findings: No fracture or dislocation is seen. Osseous alignment is anatomic. The glenohumeral joint i s intact. There is mild AC joint degenerative change. Soft tissues are unremarkable. Impression: Mild AC joint degenerative change. Reviewed, dictated and finalized at [facility]. Impression: Mild AC joint degenerative change.
--- OUTSIDE RECORDS SUMMARY | 2025-01-12 10:03 | XMS_ITS | Continuity of Care Document ---
Author Organization [facility] Address [address] [place] [address] [place] [address] Phone Care Team Providers Care Manager Of Case Name Role Phone Katey Lima OD Unavailable Unavailable Allergies, Adverse Reactions, Alerts Substance Reaction Status Criticality No Known Allergies Active No Inform ation Medications Medication Instructions Dosage Effective Dates (start - stop) Status Comments Humira Pen 40 mg/0.8 mL subcutaneous kit inject 0.8 milliliter by subcutaneous route every 2 weeks in the abdomen or thigh (rotate sites) 40 MG - Active famotidine 40 mg tablet take 1 tablet by oral route every day at bedtime 40 MG - Active mesalamine 1.2 gram tablet,delayed release take 2 tablet by oral route every day with a meal 2.4 G - No Longer Active Procedures Procedure Date Fundus Photography W/ Report Office/outpatient Visit, Est Fundus Photography W/ Report Eye Exam & Treatment Fundus Photography W/ Report Eye Exam, New Patient Advance Directives Directive Yes / No Effective Date File Name No Information Encounters Encounter Description Practice Location Reason(s) For Visit Diagnoses Date Provider Providers Copied on Encounter [facility]pa [facility]ient [facility], [facility] [address], [place], [place], [address], [place] tel:[phone] HYO Garrison MD Professional Complete Exam (chief complaint) Age-related nuclear cataract, bilateralIris nevus, rightMacular RPE mottlingVitreo us degeneration, left eyeVitreous syneresis of left eye 5 Clarence OD Katey. [address] [facility], [address], [place], [place], [address], [place]. tel:[phone] Referring Provider: Sheila Mauro DO, [address] [facility] [address], [place], [address]. tel:[phone] [facility], [address] [place], [place] [address], [place], [place], [address], [place] tel:[phone] SEC Garrison MD Professional Complete Exam (chief complaint) Age-related nuclear cataract, bilateralIris nevus, rightMacular RPE mottling 4 Clarence OD Katey. [address] [facility], [address], [place], [place], [address], [place]. tel:[phone] Referring Provider: Sheila Mauro DO, [address] [facility] [address], [place], [address]. tel:[phone] [facility], [address] [place] [address] [address], [place], [place], [address], [place] tel:[phone] SEC Garrison MD Professional Complete Exam (chief complaint) Age-related nuclear cataract, bilateralMacul ar RPE mottlingIris nevus, right 3 Mason Barriga. [address] [facility], [address], [place], [place], [address], [place]. tel:[phone] Referring Provider: Sheila Mauro DO, [address] [facility] [address], [place], [address]. tel:[phone] Family History Family Member Type Diagnosis Age At Onset No Information Payers Payer name Insurance type Covered green party ID Dennisa javed(s) [facility] Medicare Complete CI [id number] Social History Type Description Quantity Date Captured Comments Alcohol Use Details Caffeine Use Details Tobacco Use Status Ex-cigarette smoker 025 Smoking Status Former smoker Smoking Tobacco Use Details Cigarette: Age Stopped: 31 Cigarette: 10 Cigarettes per day Sex Male Chief Complaint And Reason For Visit From encounter dated '12/31/2024 10:00'. Complete Exam (chief complaint). Description: The 74 year old patient presents for a complete exam ou. Patient c/o a floater OS x 6 months. Patient denies any changes in vision ou. Patient wears OTC reading glasses. Reason For Referral Reason For Referral No Information Plan Of Treatment Date Type Action Status Goal Tobacco cessation counseling completed Goal Tobacco cessation counseling completed Patient Education Cataracts: Care Instruc tions completed Patient Education Cataracts: Care Instruc tions completed Patient Education The Eye: Anatomy Sketch completed History Of Present Illness Encounter Date Complaint History Of Prese nt Illness Complete Exam The 74 year old patient presents for a complete exam ou. Patient c/o a floater OS x 6 months. Patient denies any changes in vision ou. Patient wears OTC reading glasses. 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
--- OUTSIDE RECORDS SUMMARY | 2025-01-12 10:03 | XMS_ITS | Clinical Summary ---
Author Organization [facility] Address [address] [place] [address] Phone Care Team Providers Care Contact Assembler Name Role Phone Unavailable Primary Care Provider [...] Colonography Q 5 years 1996 PNEUMOCOCCAL VACCINE 50+ YEARS (1 of 1 - PCV) 03/04/20 ZOSTER VACCINE (1 of 2) 2001 INFLUENZA VACCINE (#1) 2024 RSV VACCINE (60+ or ) (1 - 1-dose 75+ series) 2026 Medical Devices Implanted Type Area Sports Manager Device Identifier Shelf Expiration Date Model / Serial / Lot Imp Prostate Urolift [id number] - [id number] Implanted:Qty: 1 on 02/08/2018 by Abhijit Jeetr MD at [facility] Other NEOTRACT 05/20/2019 [id number] / / [id number] Imp Prostate Urolift Sx275-8 - [id number] Implanted:Qty: 1 on 02/08/2018 by Abhijit Jeter MD at [facility] Other N/A: Urinary Bladder NEOTRACT 05/20/2019 DF160-3 / / [id number] Imp Prostate Urolift Fw538-2 - [id number] Implanted:Qty: 2 on 02/08/2018 by Abhijit Jeter MD at [facility] Other N/A: Urinary Bladder NEOTRACT 06/15/2019 [id number] / / [id number] Insurance MEDICARE PART A AND B Advance Directives For more information, please contact: [phone] * Full Code (Latest Code Status on File) Date Activated Date Inactivated Comments 02/08/2018 2:18 PM 02/08/2018 7:56 PM * Full Code Date Activated Date Inactivated Comments 02/08/2018 12:37 PM 02/08/2018 2:18 PM
--- OUTSIDE RECORDS SUMMARY | 2025-01-12 10:04 | XMS_ITS | Encounter Summary ---
Author Organization [facility] Healthcare Address [address] [place] [address] Care Team Providers Care Agronomy Professor Name Role Phone Padma Schwartz MD Unavailable [phone] Suleiman Del Cid MD Unavailable Abhijit Jeter MD Unavailable [phone] Rafat Oswald MD Primary Care Provider [phone] Encounter Details Date Type Department Care Team (Late st Contact Info) Description 11/25/2024 Results Follow-Up [facility] Gastroenterology at [address] [place] [address] Padma Schwartz MD [address] [place] [address] [address] [place] [address] Social History Tobacco Use Types Packs/Day Years Used Date Smoking Tobacco: Former Cigarettes 0.3 10 0 10/08/1969 - 10/08/1979 Smokeless Tobacco: Never Comments:Occasional cannabis use Alcohol Use Standard Drinks/Week Comments No 0 (1 standard drink = 0.6 oz pur e alcohol) AUDIT-C Answer Date Recorded Q1: How often do you have a drink containing alcohol? 4 or more times a week 11/18/2024 Q2: How many drinks containi ng alcohol do you have on a typical day when you are drinking? 1 or 2 Q3: How often do you have si x or more drinks on one occasion? Never 11/18/2024 PHQ-2 Answer Date Recorded PHQ-2 Total Score (If total score is 3 or more points, staff should administer the PHQ-9) 0 02/22/2023 Personal Safety Answer Date Recorded Have you ever been in or are you currently in a harmful physical or emotional relationship or is someone making you feel afraid or unsafe? Denies 11/28/2024 Sex and Gender Information Value Date Recorded Sex Assigned at Not on file Legal Sex Male 11:54 PM PRESSURIZER Gender Identity Male 11/01/2021 11:42 AM PRESSURIZER Sexual Orientation Not on file documented as of this encounter Plan of Treatment Upcoming Encounters Date Type Department Care Team (Late st Contact Info) Description 11/20/2025 8:00 AM PRESSURIZER Hospital Encounter [address] [address] Padma Schwartz MD [address] [place] [address] [address] WINN [address] [place] [id number] 11/20/2025 8:00 AM PRESSURIZER - 11/20/2025 8:30 AM PRESSURIZER Surgery [address] [address] Padma Schwartz MD [address] [place] [address] DR WINN [address] [place] [id number] COLONOSCOPY Scheduled Procedures Name Priority Associated Diagnoses Date/Ti me COLONOSCOPY History of colon polyps 11/20/2025 8:00 AM PRESSURIZER documented as of this encounter Visit Diagnoses Not on filedocumented in this encounter Care Teams Agronomy Professor Relationship Specialty Start Date End Date Rafat Oswald MD [address] [facility] [place] [address] PCP - General Family Practice 11/07/24 Padma Schwartz MD Consulting Physician Gastroenterology 02/24/20 Suleiman Del Cid MD Consulting Physician Neurology 02/24/20 Abhijit Jeter MD Consulting Physician Urology 02/24/20 documented as of this encounter
--- OUTSIDE RECORDS SUMMARY | 2025-01-12 10:04 | XMS_ITS | Clinical Summary ---
Author Organization [facility] Medical Office Building B Address [address] [place] [address] Care Team Providers Care Barnworker Groom Name Role Phone Padma Schwartz MD Unavailable [phone] Suleiman Del Cid MD Unavailable Abhijit Jeter MD Unavailable [phone] Rafat Oswald MD Primary Care Provider [phone] Allergies No known active allergies Medications meclizine (ANTIVERT) 12.5 mg tablet Take 1 tablet (12.5 mg total) by mouth 3 (three) times a day as needed for dizziness Active mesalamine (LIALDA) 1.2 gram EC tablet Take 2 tablets (2.4 g total) by mouth daily 180 tablet 3 04/21/20 24 025 Active famotidine (PEPCID) 40 mg tablet Take 1 tablet (40 mg total) by mouth daily 90 tablet 3 04/21/20 24 Active tamsulosin (FLOMAX) 0.4 mg extended release capsule Take 1 capsule (0.4 mg total) by mouth daily 30 capsule 1 11/28/19 25 Active ondansetron ODT (ZOFRAN-ODT) 4 mg disintegrating tablet Take 1 tablet (4 mg total) by mouth every 8 (eight) hours as needed for nausea or vomiting 20 tablet 11/28/19 25 Active vibegron 75 mg tablet Take 75 mg by mouth daily Active adalimumab (HUMIRA, CF, PEN) 40 mg/0.4 mL pen injector kitIndications:[facility] erative Colitis Inject 0.4 mL (40 mg total) under the skin every 14 (fourteen) days 6 each 3 12/03/19 Active adalimumab (HUMIRA, CF, PEN) 80 mg/0.8 mL pen injector kitIndications:[facility] erative Colitis Subcutaneous injection-160 mg (given over 1 or 2 days), then 80 mg 2 weeks later (day 15), then maintenance dose of 40 mg every 2 weeks (see 2nd Rx). 3 each 12/03/19 25 Active Active Problems Problem Noted Date Diagnosed Date History of colon polyps 11/26/2024 Sensorineural hearing loss (SNHL) of both ears 0 12/03/2023 Assessment & Plan (12/03/2023 2:44 PM DECK SUPERVISOR): Hearing test 48 ounces of caffeine free and soda free fluid daily Consider physical therapy for neck Tinnitus 12/03/2023 Assessment & Plan (12/03/2023 2:44 PM DECK SUPERVISOR): Hearing test 48 ounces of caffeine free and soda free fluid daily Consider physical therapy for neck Ulcerative pancolitis without complication 04/26 Gastroesophageal reflux dise ase with esophagitis without [...] 10:16 PM CDT): Patient requests referral to systems programmer analyst, referral placed. 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 Cont. Current prescription medications, mesalamine. Managed by GI. Esophageal dysphagia 12/06/2021 Tubular adenoma of colon 12/06/2021 History of vertigo 02/24/2021 Oscillopsia 12/10/2020 Degenerative disc disease, cervical 12/08/2020 Lightheadedness 12/03/2020 Assessment & Plan (12/03/2023 2:44 PM DECK SUPERVISOR): Hearing test 48 ounces of caffeine free and soda free fluid daily Consider physical therapy for neck Assessment & Plan (12/03/2020 8:11 PM DECK SUPERVISOR): Mildly symptomatic. Trial of meclizine. Patient will let me know the name of the PT company he would like for me to refer him to. Go to nearest ER if S/Sxs worsen. C-Spine xrays ordered. Chronic pain of right knee 12/03/2020 Assessment & Plan (12/03/2020 8:12 PM DECK SUPERVISOR): Requested referral to Ortho for further eval./mgmt. [...] (10/20/2019): Added automatically from request for surgery [id number] Assessment & Plan (10/20/2019 11:10 AM DECK SUPERVISOR): Overdue for colonoscopy. Will have him set this up today. TADEO (obstructive sleep apnea) 11/19/2018 Assessment & Plan (02/25/2020 8:35 AM CDT): Managed by sleep medicine. Assessment & Plan (11/19/2018 1:32 PM DECK SUPERVISOR): Non-compliant with CPAP because cannot tolerate mask Will contact us with company name Sleep study done about 15-20 years ago Sleep study was done at [facility] Pt. Does snore, wakes up coughing, [...] Urologist. Assessment & Plan (11/19/2018 1:30 PM DECK SUPERVISOR): S/P TURP Followed by Dr. Jose Jeter [...] (10/20/2019): Added automatically from request for surgery [id number] Assessment & Plan (02/24/2021 8:31 PM CDT): Asx. Continue current therapy. Assessment & Plan (12/03/2020 8:11 PM DECK SUPERVISOR): Asx, labs ordered. Assessment & Plan (02/25/2020 8:35 AM CDT): Managed by GI. Assessment & Plan (10/20/2019 11:09 AM DECK SUPERVISOR): Pt appears to have mild UC disease. [...] understanding. Bronchitis 11/04/2015 11/19/2018 Overview (01/11/2017): Bronchitis Encounters Date Type Department Care Team Description 12/04/2024 Documentation [facility] [address] [place] [address] Abby Hicks CPhT 12/03/2024 10:00 AM DECK SUPERVISOR Office Visit [facility] at [address] [place] [address] Narciso Child NP Ulcerative 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) (Primary Dx); Tubular adenoma of colon; Gastroesophageal reflux disease with esophagitis without hemorrhage; Schatzki's ring 12/02/2024 Results Follow-Up [facility] at [address] [place] [address] Narciso Child NP 11/28/2024 2:40 PM DECK SUPERVISOR - 11/28/2024 4:33 PM DECK SUPERVISOR Emergency [facility] Emergency Department [address] [place] [address] Mandeep Damian MD Kidney stone on left side (Primary Dx) Discharge Disposition: Discharge to home or self care 11/28/2024 12:21 PM DECK SUPERVISOR - 11/28/2024 11:59 PM DECK SUPERVISOR Hospital Encounter [facility] Emergency, Room R Discharge Disposition: Discharge to home or self care 11/27/2024 2:10 PM DECK SUPERVISOR Lab [facility] Laboratory [address] [place] [phone] Ulcerative 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) 11/27/2024 Telephone [facility] at [address], [place] [phone] Janie Bagley MA 11/26/2024 Telephone [facility] at [address], [place] [phone] Analilia Edwards Schedule Colonoscopy 11/25/2024 8:30 AM DECK SUPERVISOR Office Visit [facility] [address] [place] [address] [address] [phone] Suleiman Del Cid MD TADEO (obstructive sleep apnea) (Primary Dx); Hypersomnia with sleep apnea; Overweight (BMI 25.0-29.9) 11/25/2024 Results Follow-Up [facility] at [address], [place] [address] Padma Schwartz MD 11/19/2024 9:32 AM DECK SUPER[place] [address] Amy Gandara MD 11/19/2024 9:00 AM DECK SUPERVISOR - 11/19/2024 9:30 AM [place] [address] Padma Schwartz MD COLON BIOPSY 11/19/2024 7:45 AM DECK SUPERVISOR - 11/19/2024 10:45 AM DECK SUPERVISOR [place] [address] Padma Schwartz MD Ulcerative 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); Tubular adenoma of colon Discharge Disposition: Discharge to home or self care from Last 3 Months Immunizations Immunization Administration Dates Next Due COVID-19 mRNA ([employer]) 0.3 m L (30 mcg) vaccine (12 [...] repair [facility]ERNIA REPAIR COLONOSCOPY 07/19/2016 COLONOSCOPY 12/03/2019 COLONOSCOPY 01/06/2022 - 02/04/2022 Medical History Medical History Date Comments Hx Other Medical left inguinal h ernia Hx Other Medical tympanic ruptur e; Laterality: right Sleep apnea Ulcerative colitis (HCC) GERD (gastroesophageal reflux disease) Colon polyp Family History Medical History Relation Name Comments [...] alcohol? 4 or more times a week 12/03/2024 Q2: How many drinks containi ng alcohol do you have on a typical day when you are drinking? 1 or 2 Q3: How often do you have si x or more drinks on one occasion? Never 12/03/2024 PHQ-2 Answer Date Recorded PHQ-2 Total Score [...] on file Legal Sex Male 11:54 PM DECK SUPERVISOR Gender Identity Male 11/01/2021 11:42 AM DECK SUPERVISOR Sexual Orientation Not on file Obstetrics History Last Filed Vital Signs Vital Sign Reading Time Taken Comments Blood Pressure 121/76 12/03/2024 10:02 AM DECK SUPERVISOR Pulse 68 12/03/2024 10:02 AM DECK SUPERVISOR Temperature 36.8 C (98.2 F) 11/28/2024 12:50 PM DECK SUPERVISOR Respiratory Rate 17 11/28/2024 12:50 PM DECK SUPERVISOR Oxygen Saturation 98% 12/03/2024 10:02 AM DECK SUPERVISOR Inhaled Oxygen Concentration - - Weight 91.3 kg (201 lb 4.8 oz) 12/03/2024 10:02 AM DECK SUPERVISOR Height 182.9 cm (6') 12/03/2024 10:02 AM DECK SUPERVISOR Body Mass Index 27.3 12/03/2024 10:02 AM DECK SUPERVISOR Plan of Treatment Upcoming Encounters Date Type Department Care Team (Late st Contact Info) Description 11/20/2025 8:00 AM DECK SUPERVISOR Hospital Encounter [address] [address] Padma Schwartz MD [address] [place] [address] DR WINN [address] [place] [address] 11/20/2025 8:00 AM DECK SUPERVISOR - 11/20/2025 8:30 AM DECK SUPERVISOR Surgery [address] [address] Padma Schwartz MD [address] [place] [address] DR WINN [address] [place] [address] COLONOSCOPY Scheduled Procedures Name Priority Associated Diagnoses Date/Ti me COLONOSCOPY History of colon polyps 11/20/2025 8:00 AM DECK SUPERVISOR Health Maintenance Due Date Last Done Comments Zoster Vaccine (2 of 3) 10/16/2013 08/21/2013 Depression Screening 03/01/2024 03/01/2023, 11/29/2022, 02/27/2022, Additional history exists Well Visit 65+ 03/01/2024 03/01/2023, 02/06, 02/24/2021, Additional history exists Covid-19 Vaccine (2023-2 5 season) 2024 07/03/2023, 06/29/2022, 03/02/2022, Additional history exists Influenza Vaccine (Season Ended) 2025 07/03/2023, 06/29/2022, 06/27/2021, Additional history exists Fall Risk Assessment 11/19/2025 11/19/2024, 03/01/2023, 11/29/2022, Additional history exists DTaP/Tdap/Td Vaccine (4 - Td or Tdap) 07/15/2027 07/15/2017, 05/21/2013, 08/08/2007 Colon Cancer Screening-Colonoscopy 11/19/2034 11/19/2024, 01/18/2022, 12/03/2019, Additional history exists Hepatitis C Screening Completed 02/24/2020 Pneumococcal vaccine 65+ Completed 023, 11/19/2018, 07/23/2016 Prostate Cancer Screening-PSA Discontinued , 11/23/2021, 11/26/2020, Additional history exists Colon Cancer Screening-CT Colonography Discontinued 11/19/2024, 01/18/2022, 12/03/2019, Additional history exists Colon Cancer Screening-DNA Stool Discontinued 11/19/2024, 01/18/2022, 12/03/2019, Additional history exists Colon Cancer Screening-FIT Discontinued 11/19, 01/18/2022, 12/03/2019, Additional history exists Colon Cancer Screening-Sigmoidoscopy Discontinued 11/19/2024, 01/18/2022, 12/03/2019, Additional history exists Hepatitis B Screening Completed 11/27/2024 Abdominal Aortic Aneurysm (A AA) Screen Completed 11/28/2024, 06/27/2016 Procedures Procedure Name Priority Date/Time Associated Diagnosis Comments CT ABDOMEN PELVIS WO CONTRAST ED 11/28/2024 3:27 PM DECK SUPERVISOR URINALYSIS, MICROSCOPIC ONLY STAT 11/28/2024 1:08 PM DECK SUPERVISOR URINALYSIS AND REFLEX TO MICROSCOPIC AND CULTURE STAT 11/28/2024 1:08 PM DECK SUPERVISOR EGFR STAT 11/28/2024 1:04 PM DECK SUPERVISOR DIFFERENTIAL AUTO STAT 11/28/2024 1:0 4 PM DECK SUPERVISOR COMPREHENSIVE METABOLIC PANEL STAT 11/28/2024 1:04 PM DECK SUPERVISOR CBC WITH AUTO DIFFERENTIAL STAT 11/28/2024 1:04 PM DECK SUPERVISOR EGFR Routine 11/27/2024 2:10 PM DECK SUPERVISOR Ulcerative 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) DIFFERENTIAL AUTO Routine 11/27/2024 2:1 0 PM DECK SUPERVISOR Ulcerative 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) CBC WITH AUTO DIFFERENTIAL Routine 11/27/2024 2:10 PM DECK SUPERVISOR Ulcerative 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) COMPREHENSIVE METABOLIC PANEL Routine 11/27/2024 2:10 PM DECK SUPERVISOR Ulcerative 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) CRP (ACUTE PHASE) Routine 11/27/2024 2:1 0 PM DECK SUPERVISOR Ulcerative 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) ERYTHROCYTE SEDIMENTATION RATE Routine 11/27/2024 2:10 PM DECK SUPERVISOR Ulcerative 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) TB TEST, QUANTIFERON GOLD Routine 11/27/2024 2:10 PM DECK SUPERVISOR Ulcerative 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) HEPATITIS B SURFACE ANTIBODY (IMMUNE STATUS) Routine 11/27/2024 2:10 PM DECK SUPERVISOR Ulcerative 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) HEPATITIS B SURFACE ANTIGEN Routine 11/27/2024 2:10 PM DECK SUPERVISOR Ulcerative 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) HEPATITIS B CORE IGM Routine 11/27/2024 2:10 PM DECK SUPERVISOR Ulcerative 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) SURGICAL PATHOLOGY STAT 11/19/2024 11 :34 AM DECK SUPERVISOR Ulcerative 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) Tubular adenoma of colon COLON BIOPSY 11/19/2024 9:23 AM DECK SUPERVISOR Ulcerative 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) Tubular adenoma of colon COLONOSCOPY 11/19/2024 8:50 AM DECK SUPERVISOR PSA SCREEN Routine 11/09/2023 10:51 AM DECK SUPERVISOR HEPATITIS C ANTIBODY Routine 02/24/2020 4:39 PM CDT Encounter for hepatitis C screening test for low risk patient from Last 3 Months or Most Recently Relevant to Health Maintenance Results * CT Abdomen Pelvis WO Contrast (11/28/2024 3:27 PM DECK SUPERVISOR) Anatomical Region Laterality Modality Body N/A Computed Tomogra phy 11/28/2024 3:34 PM DECK SUPERVISOR Narrative 11/28/2024 3:49 PM DECK SUPERVISOR EXAM DESCRIPTION: CT ABDOMEN PELVIS WO CONTRAST REASON FOR STUDY: Abdominal/flank pain, stone suspected RLQ abdominal pain Hx of ulcerative colitis and hernia surgery TECHNIQUE: CT scan of the abdomen and pelvis performed without intravenous and without oral contrast using helical scanning technique. Reconstructed coronal and sagittal MPR images reviewed. All images stored on PACS. Automated exposure control was used as a dose optimization technique for this examination. COMPARISON: None FINDINGS: The sensitivity for detection of visceral lesions is diminished without the use of intravenous contrast. LOWER CHEST: Scattered sub 6 mm pulmonary nodules are noted. For reference is a 4 mm right middle lobe nodule (15). 4 mm right basilar nodule (37). No specific follow-up is required in a low risk patient. LIVER: The liver is normal in size. No definite liver lesion is seen. GALLBLADDER: The gallbladder is distended. No gross wall thickening, stranding or pericholecystic fluid to suggest acute cholecystitis. BILE DUCTS: No gross biliary ductal dilatation. SPLEEN: The spleen is normal in size PANCREAS: The pancreas is normal in size without significant peripancreatic stranding or main ductal dilatation. ADRENALS: Normal. KIDNEYS/URINARY TRACT: The kidneys are normal in size. Prominent left collecting system without overt hydronephrosis. A 5 mm stone is seen at the left ureterovesical junction. Mild perinephric stranding is seen bilaterally, likely represent a combination of mild inflammation of the left and bilateral scarring. A 1.5 cm right renal cyst is seen. The urinary bladder is distended. GI: The colon is nondilated. Sigmoid diverticular seen without CT evidence of acute diverticulitis. Indeterminate thickening of the inferior cecum (87). No significant inflammatory fat stranding. The appendix is prominent measuring 8 without substantial inflammatory fat stranding or fluid to suggest acute appendicitis (85). The small bowel is nondilated without wall thickening or evidence of obstruction. The stomach is partially distended. PERITONEUM: No free air. No ascites is seen. Prominent mesenteric lymph nodes are noted within the right lower quadrant. For reference is a 9 mm lymph node (82).. RETROPERITONEUM: Subcentimeter retroperitoneal lymph nodes are noted. No inguinal lymphadenopathy. REPRODUCTIVE: Brachytherapy seeds are seen within a prominent prostate. There is indeterminate soft tissue within the entrance of the left inguinal canal which likely represents a prior hernia repair. VASCULATURE: No abdominal aortic aneurysm. MUSCULOSKELETAL: Old-appearing severe L1 compression fracture with minimal retropulsion of the posterior endplate measuring approximately 3 mm. Moderate lower lumbar degenerative disc disease. OTHER: No other abnormality. IMPRESSION: 1. A 5 mm stone at the left ureterovesical junction. Prominent left collecting system without overt hydronephrosis. 2. Mildly dilated appendix with no significant periappendiceal stranding or fluid to suggest acute appendicitis. Recommend correlation with right lower quadrant pain and tenderness on examination. 3. Indeterminate thickening of the inferior cecum with prominent lymph nodes within the right lower quadrant. A colonoscopy is recommended for further evaluation. 4. Old-appearing severe L1 compression fracture. 5. Additional findings as above. THIS IS AN ELECTRONICALLY VERIFIED FINAL REPORT 11/28/2024 3:49 PM - Electronically signed by Ambrose Christianson M.D. AG: DEVI Report ID: [id number] Reading Location: [id number] Procedure Note Ambrose Christianson MD - 11/28/2024 EXAM DESCRIPTION: CT ABDOMEN PELVIS WO CONTRAST REASON FOR STUDY: Abdominal/flank pain, stone suspected RLQ abdominal pain Hx of ulcerative colitis and hernia surgery TECHNIQUE: CT scan of the abdomen and pelvis performed without intravenousand without oral contrast using helical scanning technique. Reconstructed coronal and sagittal MPR images reviewed. All images stored on PACS.Automated exposure control was used as a dose optimization technique for this examination. COMPARISON: None FINDINGS: The sensitivity for detection of visceral lesions is diminished withoutthe use of intravenous contrast. LOWER CHEST: Scattered sub 6 mm pulmonary nodules are noted. Forreference is a 4 mm right middle lobe nodule (15). 4 mm right basilar nodule (37).No specific follow-up is required in a low risk patient. LIVER: The liver is normal in size. No definite liver lesion is seen. GALLBLADDER: The gallbladder is distended. No gross wall thickening, stranding or pericholecystic fluid to suggest acute cholecystitis. BILE DUCTS: No gross biliary ductal dilatation. SPLEEN: The spleen is normal in size PANCREAS: The pancreas is normal in size without significantperipancreatic stranding or main ductal dilatation. ADRENALS: Normal. KIDNEYS/URINARY TRACT: The kidneys are normal in size. Prominent left collecting system without overt hydronephrosis. A 5 mm stone is seen atthe left ureterovesical junction. Mild perinephric stranding is seenbilaterally, likely represent a combination of mild inflammation of the left andbilateral scarring. A 1.5 cm right renal cyst is seen. The urinary bladder is distended. GI: The colon is nondilated. Sigmoid diverticular seen without CTevidence of acute diverticulitis. Indeterminate thickening of the inferior cecum(87). No significant inflammatory fat stranding. The appendix is prominent measuring 8 without substantial inflammatory fat stranding or fluid tosuggest acute appendicitis (85). The small bowel is nondilated without wall thickening or evidence of obstruction. The stomach is partiallydistended. PERITONEUM: No free air. No ascites is seen. Prominent mesentericlymph nodes are noted within the right lower quadrant. For reference is a 9 mm lymph node (82).. RETROPERITONEUM: Subcentimeter retroperitoneal lymph nodes are noted.No inguinal lymphadenopathy. REPRODUCTIVE: Brachytherapy seeds are seen within a prominent prostate. There is indeterminate soft tissue within the entrance of the leftinguinal canal which likely represents a prior hernia repair. VASCULATURE: No abdominal aortic aneurysm. MUSCULOSKELETAL: Old-appearing severe L1 compression fracture withminimal retropulsion of the posterior endplate measuring approximately 3 mm.Moderate lower lumbar degenerative disc disease. OTHER: No other abnormality. IMPRESSION: 1. A 5 mm stone at the left ureterovesical junction. Prominent left collecting system without overt hydronephrosis. 2. Mildly dilated appendix with no significant periappendiceal strandingor fluid to suggest acute appendicitis. Recommend correlation with rightlower quadrant pain and tenderness on examination. 3. Indeterminate thickening of the inferior cecum with prominent lymphnodes within the right lower quadrant. A colonoscopy is recommended for further evaluation. 4. Old-appearing severe L1 compression fracture. 5. Additional findings as above. THIS IS AN ELECTRONICALLY VERIFIED FINAL REPORT 11/28/2024 3:49 PM - Electronically signed by Ambrose Lim.D. AG: DEVI Report ID: [id number] Reading Location: [id number] Mandeep Damian MD IMG CT PROCEDURES Final Resu lt * (ABNORMAL) Urinalysis reflex to microscopic and culture Urine (11/28/2024 1:08 PM DECK SUPERVISOR) Color, ur Straw Yellow Clarity, ur Clear Clear [facility] ([facility]) Specific gravity, ur 1.010 1.003 - 1.030 [facility] ([facility]) pH, urine 7.0 [facility] ([facility]) Comment: Interpretive Data U rine pH is affected by diet, medications, systemic acid-base disturbances, and renal tubular function. pH may affect urinary stone formation. For example, urine pH below 6.0 may help reduce the tendency for calcium phosphate stones and pH greater than 6.0 may reduce the tendency for uric acid stone formation. Source: [facility] [employer] Current Interpretive Data was last revised on 2017 Protein, ur ql Negative Negative [facility] ([facility]) Glucose, ur ql Negative Negative [facility] ([facility]) Ketones, ur Negative Negative [facility] ([facility]) Bilirubin, ur Negative Negative [facility] ([facility]) Blood, ur 3+(A) Negative [facility] ([facility]) Urobilinogen, ur <2.0 <2.0 mg/dL [facility] ([facility]) Nitrite, ur Negative Negative [facility] ([facility]) Leukocyte esterase, ur 2+(A) Negative [facility] ([facility]) UA reflex comment Reflex to microscopic UA will be performed. [facility] ([facility]) Urine 11/28/2024 1:08 PM DECK SUPERVISOR 11/28/2024 1:11 PM DECK SUPERVISOR Mandeep Damian MD LAB MICROBIOLOGY - GENERAL O RDERABLES Final Result [facility] ([facility]) [facility] Department [place] [address] * (ABNORMAL) Urinalysis, microscopic only (11/28/2024 1:08 PM DECK SUPERVISOR) WBC, ur 0-5 0 - 5 /HPF RBC, ur >50(A) 0 - 2 /HPF [facility] ([place]) Mucous, ur Present(A) [facility] ([place]) Culture Reflex Comment Reflex conditions for urine culture (WBC >10) not met. [facility] ([place]) Urine 11/28/2024 1:08 PM DECK SUPERVISOR 11/28/2024 1:11 PM DECK SUPERVISOR Mandeep Damian MD LAB URINE ORDERABLES Final R esult [facility] ([place]) 1 [facility] Department [place] [address] * eGFR (11/28/2024 1:04 PM DECK SUPERVISOR) eGFR >90 >=60 mL/min/1. 73 m2 Comment: Interpretive Data Reference Interval Normal >/= 90 mL/min/1.73m2 Mildly decreased* 60 - 89 mL/min/1.73m2 Mildly to moderately decreased 45 - 59 mL/min/1.73m2 Moderately to severely decreased 30 - 44 mL/min/1.73m2 Severely decreased 15 - 29 mL/min/1.73m2 Kidney Failure < 15 mL/min/1.73m2 *Relative to young adult level Estimated glomerular filtration rate is determined by the 2020 CKD-EPI equation recommended by the National Kid[employer] (A Unifying Approach to GFR Estimation: Recommendations of the NKF-ASK Task Force on Reassessing the Inclusion of Race in Diagnosing Kidney Disease, JASN 2020). The CKD-EPI equation should not be used for patients with unstable renal function and has not been validated in children and those over 70. Current interpretive data was last reviewed 2021. Blood 11/28/2024 1:04 PM DECK SUPERVISOR 11/28/2024 1:11 PM DECK SUPERVISOR Mandeep Damian MD LAB BLOOD ORDERABLES Final R esult [facility] ([place]) 1 [facility] Department [place] [address] * Differential, auto (11/28/2024 1:04 PM DECK SUPERVISOR) Neutrophil abs 6.3 1.5 - 6.5 K/cumm Imm gran abs 0.0 0.0 - 0.1 K/cumm [facility] ([facility]) Lymphocyte abs 0.8 0.8 - 3.3 K/cumm [facility] ([facility]) Monocyte abs 0.6 0.2 - 0.8 K/cumm [facility] ([facility]) Eosinophil abs 0.2 0.0 - 0.5 K/cumm [facility] ([facility]) Basophil abs 0.1 0.0 - 0.1 K/cumm [facility] ([facility]) Neutrophil pct 77.8 % [facility] ([facility]) Comment: Interpretive Data Percent cell count reference ranges are not reported, since discordance with absolute values may lead to misinterpretation of CBC data. Current Interpretive Data was last revised on 2018. Imm gran pct 0.5 % [facility] ([facility]) Comment: Interpretive Data Percent cell count reference ranges are not reported, since discordance with absolute values may lead to misinterpretation of CBC data. Current Interpretive Data was last revised on 2018. Lymphocyte pct 10.3 % [facility] ([place]) Comment: Interpretive Data Percent cell count reference ranges are not reported, since discordance with absolute values may lead to misinterpretation of CBC data. Current Interpretive Data was last revised on 2018. Monocyte pct 7.9 % [facility] ([place]) Comment: Interpretive Data Percent cell count reference ranges are not reported, since discordance with absolute values may lead to misinterpretation of CBC data. Current Interpretive Data was last revised on 2018. Eosinophil pct 2.8 % [facility] ([facility]) Comment: Interpretive Data Percent cell count reference ranges are not reported, since discordance with absolute values may lead to misinterpretation of CBC data. Current Interpretive Data was last revised on 2018. Basophil pct 0.7 % [facility] ([facility]) Comment: Interpretive Data Percent cell count reference ranges are not reported, since discordance with absolute values may lead to misinterpretation of CBC data. Current Interpretive Data was last revised on 2018. Blood 11/28/2024 1:04 PM DECK SUPERVISOR 11/28/2024 1:11 PM DECK SUPERVISOR Mandeep Damian MD LAB BLOOD ORDERABLES Final R esult [facility] ([facility]) 1 [facility] Department [place] [address] * CBC with auto differential (11/28/2024 1:04 PM DECK SUPERVISOR) WBC 8.1 3.8 - 9.9 K/cumm Hgb 14.8 13.0 - 17.5 g/dL [facility] Hct 43.8 38.9 - 50.3 % [facility] Plt 254 150 - 400 K/cumm [facility] MPV 9.7 9.1 - 12.3 fL [facility] RBC 5.14 4.30 - 5.80 M/cumm [facility] MCV 85.2 81.3 - 96.4 fL [facility] MCH 28.8 27.1 - 33.3 pg [facility] MCHC 33.8 32.3 - 35.7 g/dL [facility] RDW CV 12.2 11.1 - 14.9 % [facility] RDW SD 38.1 35.7 - 48.1 fL [facility] NRBC abs 0.00 0.00 - 0.01 K/cumm [facility] Blood Venous blood specimen / Unknown 11/28/2024 1:04 PM DECK SUPERVISOR 11/28/2024 1:11 PM DECK SUPERVISOR Mandeep Damian MD LAB BLOOD ORDERABLES Final R esult [facility] ([facility]) 1 [facility] Department [place] [address] * Comprehensive metabolic panel (11/28/2024 1:04 PM DECK SUPERVISOR) Sodium 140 135 - 145 mmol/L Potassium, pl 4.5 3.3 - 4.9 mmol/L [facility] ([facility]) Chloride 104 97 - 110 mmol/L [facility] ([facility]) CO2 26 22 - 32 mmol/L [facility] ([facility]) Anion gap 10 2 - 15 mmol/L [facility] ([facility]) BUN 13 6 - 25 mg/dL [facility] ([facility]) Creatinine 0.87 0.80 - 1.30 mg/dL [facility] ([facility]) Glucose 95 70 - 199 mg/dL [facility] ([facility]) Comment: Interpretive Data Fasting glucose >/= 126 mg/dl is diagnostic for diabetes. Fasting is defined as no caloric intake for at least 8 hours. Fasting glucose between 100 mg/dl to 125 mg/dl is diagnostic of prediabetes. In a patient with classic symptoms of hyperglycemia or hyperglycemic crisis, a random glucose >/= 200 mg/dl is diagnostic for diabetes. In the absence of unequivocal hyperglycemia, results should be confirmed by repeat testing. The classification and Diagnosis of Diabetes Diabetes Care 2021; 46: S19-S40. Current interpretive data was last revised 2022. Calcium 9.0 8.5 - 10.3 mg/dL [facility] ([facility]) Bilirubin, total 0.8 0.1 - 1.2 mg/dL [facility] ([facility]) Protein, pl 7.2 6.5 - 8.5 g/dL [facility] ([facility]) Albumin 4.1 3.5 - 5.0 g/dL [facility] ([facility]) Alk phos 57 40 - 130 Units/L [facility] ([facility]) ALT 18 7 - 55 Units/L [facility] ([facility]) AST 23 10 - 50 Units/L [facility] ([facility]) Comment:Slightly Hemolyzed S pecimen Blood Venous blood specimen / Unknown 11/28/2024 1:04 PM DECK SUPERVISOR 11/28/2024 1:11 PM DECK SUPERVISOR Mandeep Damian MD LAB BLOOD ORDERABLES Final R esult Performing Organization Address City/[facility]/ZIP Co de Phone Number [facility] ([place]) 1 [facility] [place] [address] * eGFR (11/27/2024 2:10 PM DECK SUPERVISOR) eGFR 89 >=60 mL/min/1. 73 m2 Comment: Interpretive Data Reference Interval Normal >/= 90 mL/min/1.73m2 Mildly decreased* 60 - 89 mL/min/1.73m2 Mildly to moderately decreased 45 - 59 mL/min/1.73m2 Moderately to severely decreased 30 - 44 mL/min/1.73m2 Severely decreased 15 - 29 mL/min/1.73m2 Kidney Failure < 15 mL/min/1.73m2 *Relative to young adult level Estimated glomerular filtration rate is determined by the 2020 CKD-EPI equation recommended by the National Kidney [employer] (A Unifying Approach to GFR Estimation: Recommendations of the NKF-ASK Task Force on Reassessing the Inclusion of Race in Diagnosing Kidney Disease, JASN 2020). The CKD-EPI equation should not be used for patients with unstable renal function and has not been validated in children and those over 70. Current interpretive data was last reviewed 2021. Testing performed by: [address] [address] Blood 11/27/2024 2:10 PM DECK SUPERVISOR 11/27/2024 6:02 PM DECK SUPERVISOR Narciso Child NP LAB BLOOD ORDERABLE S Final Result [facility] ([place]) 1 [facility] [place] [address] * Differential, auto (11/27/2024 2:10 PM DECK SUPERVISOR) Neutrophil abs 5.4 1.5 - 6.5 K/cumm Comment:Testing performed by : [address] [address] Imm gran abs 0.1 0.0 - 0.1 K/cumm [facility] ([facility]) Comment:Testing performed by : [facility], [address] [place] [address]., [address] Lymphocyte abs 1.1 0.8 - 3.3 K/cumm [facility] ([facility]) Comment:Testing performed by : [facility], [address] [place] [address]., [address] Monocyte abs 0.6 0.2 - 0.8 K/cumm [facility] ([facility]) Comment:Testing performed by : [facility], [address] [place] [address]., [address] Eosinophil abs 0.3 0.0 - 0.5 K/cumm [facility] ([facility]) Comment:Testing performed by : [facility], [address] [place] [address]., [address] Basophil abs 0.1 0.0 - 0.1 K/cumm [facility] ([facility]) Comment:Testing performed by : [address] [address] Neutrophil pct 70.9 % [facility] ([facility]) Comment: Interpretive Data Percent cell count reference ranges are not reported, since discordance with absolute values may lead to misinterpretation of CBC data. Current Interpretive Data was last revised on 2018. Testing performed by: [facility], [address] [place] [address]., [address] Imm gran pct 0.8 % [facility] ([facility]) Comment: Interpretive Data Percent cell count reference ranges are not reported, since discordance with absolute values may lead to misinterpretation of CBC data. Current Interpretive Data was last revised on 2018. Testing performed by: [facility], [address] [place] [address]., [address] Lymphocyte pct 14.2 % [facility] ([facility]) Comment: Interpretive Data Percent cell count reference ranges are not reported, since discordance with absolute values may lead to misinterpretation of CBC data. Current Interpretive Data was last revised on 2018. Testing performed by: [address] [address] Monocyte pct 8.5 % [facility] ([facility]) Comment: Interpretive Data Percent cell count reference ranges are not reported, since discordance with absolute values may lead to misinterpretation of CBC data. Current Interpretive Data was last revised on 2018. Testing performed by: [facility], [address] [place] [address]., [address] Eosinophil pct 4.5 % ANTHONY [facility]PTA (VON) Comment: Interpretive Data Percent cell count reference ranges are not reported, since discordance with absolute values may lead to misinterpretation of CBC data. Current Interpretive Data was last revised on 2018. Testing performed by: [facility], [address] [place] [address]., [address] Basophil pct 1.1 % [facility] ([place]) Comment: Interpretive Data Percent cell count reference ranges are not reported, since discordance with absolute values may lead to misinterpretation of CBC data. Current Interpretive Data was last revised on 2018. Testing performed by: [address] [address] Blood 11/27/2024 2:10 PM DECK SUPERVISOR 11/27/2024 5:38 PM DECK SUPERVISOR Narciso Child ONCOLOGY REGISTRAR LAB BLOOD ORDERABLE S Final Result [facility] ([place]) 1 [facility] Department [place] [address] * TB test, quantiferon gold (11/27/2024 2:10 PM DECK SUPERVISOR) [facility] Quantiferon TB Gold Negative Negative [facility] Comment: No interferon-gamma response to M. tuberculosis antigens was detected. Latent infection with M. tuberculosis is unlikely. A single negative result does not exclude infection with M. tuberculosis. In patients at high risk for M.tuberculosis infection, a second test should be considered in accordance with the 2017 ATS/IDSA/CDC Clinical Practice Guidelines for Diagnosis of Tuberculosis in Adults and Children [Lewinsohn DM et. al. Clin. Infect. Dis. 2017;64(2):111-115]. The reference range for the 'TB1 Ag minus Nil Result' and 'TB2 Ag minus Nil Result' is an Interferon-gamma level <0.35 IU/mL. Testing performed by: [address] [address] TB-Nil 0.00 IUnits/mL [facility] ([facility]) Comment:Testing performed by : [facility], [address] [place] [address], [address] TB2-Nil 0.00 IUnits/mL [facility] ([facility]ON) Comment:Testing performed by : [facility], [address] [place] [address], [id number] Mitogen-Nil 8.38 IUnits/mL [facility] (VON) Comment:Testing performed by : [facility], [address] [place] [address], [address] NIL 0.01 IUnits/mL [facility] ([facility]) Comment: Test Performed by: [address] [address] [employer]els Product Manager: Mahi Peterson Ph.D.; CLIA# [id number] Testing performed by: [address], [address] Blood 11/27/2024 2:10 PM DECK SUPERVISOR 11/27/2024 5:38 PM DECK SUPERVISOR Narciso Child ONCOLOGY REGISTRAR LAB BLOOD ORDERABLE S Final Result [facility] ([facility]) 1 [facility] Department [place] [address] [facility] * (ABNORMAL) CBC with auto differential (11/27/2024 2:10 PM DECK SUPERVISOR) Pathologist [facility] WBC 7.5 3.8 - 9.9 K/cumm Comment:Testing performed by : [facility], [address] [place] [address], [address] Hgb 14.9 13.0 - 17.5 g/dL [facility] ([facility]ON) Comment:Testing performed by : [address], [address] Hct 46.6 38.9 - 50.3 % [facility] ([facility]) Comment:Testing performed by : [address], [address] Plt 276 150 - 400 K/cumm [facility] ([facility]) Comment:Testing performed by : [facility], [address] [place] [address], [address] MPV 9.8 9.1 - 12.3 fL [facility] ([facility]) Comment:Testing performed by : [facility], [address] [place] [address], [address] RBC 5.27 4.30 - 5.80 M/cumm [facility] ([facility]) Comment:Testing performed by : [facility], [address] [place] [address], [address] MCV 88.4 81.3 - 96.4 fL [facility] ([facility]) Comment:Testing performed by : [facility], [address] [place] [address], [address] MCH 28.3 27.1 - 33.3 pg [facility] ([facility]) Comment:Testing performed by : [address], [address] MCHC 32.0(L) 32.3 - 35.7 g/dL [facility] ([facility]) Comment:Testing performed by : [address], [address] RDW CV 12.5 11.1 - 14.9 % [facility] ([facility]) Comment:Testing performed by : [address], [address] RDW SD 40.7 35.7 - 48.1 fL [facility] ([facility]) Comment:Testing performed by : [address], [address] NRBC abs 0.00 0.00 - 0.01 K/cumm [facility] ([facility]) Comment:Testing performed by : [address], [address] Blood 11/27/2024 2:10 PM DECK SUPERVISOR 11/27/2024 5:38 PM DECK SUPERVISOR Narciso Child ONCOLOGY REGISTRAR LAB BLOOD ORDERABLE S Final Result [facility] ([facility]) 1 [facility] Department [place] [address] * Hepatitis B core antibody, IgM Blood (11/27/2024 2:10 PM DECK SUPERVISOR) Pathologist [facility] Hep B core IgM Nonreactive Nonreactive Comment: Interpretive Data If HepB Core IgM Ab is reported as Equivocal, a new sample should be drawn in two weeks for testing. Current interpretive data was last revised on 19. Testing performed by: [address] [address] Blood 11/27/2024 2:10 PM DECK SUPERVISOR 11/27/2024 5:38 PM DECK SUPERVISOR [facility] [place] [facility] MICROBIOLOGY - GENERAL ORDERABLES Final Result Performing Organization Address City/[facility] Co de Phone Number [facility] [place]) 1 [facility] [place] [address] * Hepatitis B surface antibody (immune status) Blood (11/27/2024 2:10 PM DECK SUPERVISOR) Pathologist [facility] HBsAb (immune status) Nonreactive Comment: Interpretive Data Nonreactive: This result is consistent with a lack of immunity to Hepatitis B Virus when used in the setting of routine screening. Equivocal: The immune status of the individual should be further assessed, if appropriate, after consideration of clinical status, risk factors, and additional diagnostic information. Reactive: This result is consistent with immunity to Hepatitis B Virus when used in the setting of routine screening. Current interpretive data was last revised on 19. Testing performed by: [facility], [address] [place] [address]., [address] Blood 11/27/2024 2:10 PM DECK SUPERVISOR 11/27/2024 5:38 PM DECK SUPERVISOR [facility] [place] [facility] LAB MICROBIOLOGY - GENERAL ORDERABLES Final Result Performing Organization Address City/[facility] Co de Phone Number [facility] [place]) 1 [facility] [place] [address] * Hepatitis B Surface Antigen Blood (11/27/2024 2:10 PM DECK SUPERVISOR) Pathologist [facility] HepBsAg Nonreactive Nonreactive Comment:Testing performed by : [facility], [address] [place] [address]., [address] Blood 11/27/2024 2:10 PM DECK SUPERVISOR 11/27/2024 5:38 PM DECK SUPERVISOR [facility] ONCOLOGY REGISTRAR LAB MICROBIOLOGY - GENERAL ORDERABLES Final Result [facility] ([place]) 1 [facility] [place] [address] * Erythrocyte sedimentation rate (11/27/2024 2:10 PM DECK SUPERVISOR) [facility] Erythrocyte sedimentation rate 11 1 - 20 mm/hr Comment:Testing performed by : [facility], [address] [place] [address], [address] Blood 11/27/2024 2:10 PM DECK SUPERVISOR 11/27/2024 5:38 PM DECK SUPERVISOR Narcisoterrie [facility] ONCOLOGY REGISTRAR LAB BLOOD ORDERABLE S Final Result Performing Organization Address [facility]/ZIP Co de Phone Number VIRGILIO GUPTA ([place]) 1 [place] [address] * CRP (acute phase) (11/27/2024 2:10 PM DECK SUPERVISOR) [facility] CRP <3.0 <=10.0 mg/L Comment:Testing performed by : [facility], [address] [place] [address], [place]., [address] Blood 11/27/2024 2:10 PM DECK SUPERVISOR 11/27/2024 5:38 PM DECK SUPERVISOR Narciso Anna Marie [facility] ONCOLOGY REGISTRAR LAB BLOOD ORDERABLE S Final Result [facility]PTA ([place]) 1 [place] [address] * (ABNORMAL) Comprehensive metabolic panel (11/27/2024 2:10 PM DECK SUPERVISOR) Sodium 141 135 - 145 mmol/L Comment:Testing performed by : [facility], [address] [place] [address]., [address] Potassium, pl 4.3 3.3 - 4.9 mmol/L [facility] ([facility]) Comment:Testing performed by : [facility], [address] [place] [address]., [address] Chloride 104 97 - 110 mmol/L [facility] ([facility]) Comment:Testing performed by : [address] [address] CO2 29 22 - 32 mmol/L [facility] ([facility]) Comment:Testing performed by : [address], [address] Anion gap 8 2 - 15 mmol/L [facility] ([facility]) Comment:Testing performed by : [address], [address] BUN 11 6 - 25 mg/dL [facility] ([facility]) Comment:Testing performed by : [address], [address] Creatinine 0.91 0.80 - 1.30 mg/dL [facility] ([facility]) Comment: Icteric sample, test results may be affected. Testing performed by: [address], [address] Glucose 72 70 - 199 mg/dL [facility] ([place]) Comment: Interpretive Data Fasting glucose >/= 126 mg/dl is diagnostic for diabetes. Fasting is defined as no caloric intake for at least 8 hours. Fasting glucose between 100 mg/dl to 125 mg/dl is diagnostic of prediabetes. In a patient with classic symptoms of hyperglycemia or hyperglycemic crisis, a random glucose >/= 200 mg/dl is diagnostic for diabetes. In the absence of unequivocal hyperglycemia, results should be confirmed by repeat testing. The classification and Diagnosis of Diabetes Diabetes Care 2021; 46: S19-S40. Current interpretive data was last revised 2022. Testing performed by: [address], [address] Calcium 9.0 8.5 - 10.3 mg/dL [facility] ([place]) Comment:Testing performed by : [address] [address] Bilirubin, total 1.5(H) 0.1 - 1.2 mg/dL [facility] ([place]) Comment:Testing performed by : [facility], [address] [place] [address], [address] Protein, pl 7.1 6.5 - 8.5 g/dL [facility] ([place]) Comment:Testing performed by : [facility], [address] [place] [address], [address] Albumin 4.0 3.5 - 5.0 g/dL [facility] ([place]) Comment:Testing performed by : [facility], [address] [place] [address], [address] Alk phos 59 40 - 130 Units/L [facility] ([facility]) Comment:Testing performed by : [address], [address] ALT 15 7 - 55 Units/L [facility] ([facility]) Comment:Testing performed by : [facility], [address] [place] [address], [address] AST 28 10 - 50 Units/L [facility] ([place]) Comment:Testing performed by : [facility], [address] [place] [address], [address] Blood 11/27/2024 2:10 PM DECK SUPERVISOR 11/27/2024 5:38 PM DECK SUPERVISOR Narciso Child ONCOLOGY REGISTRAR LAB BLOOD ORDERABLE S Final Result [facility] ([place]) [address] [place] [address] Department [place] [address] * Surgical pathology (11/19/2024 11:34 AM DECK SUPERVISOR) Tissue specimen (specimen) (Colon, Biopsy) 11/19/2024 9:54 AM DECK SUPERVISOR Narrative PATHOLOGY [facility] ([place]) - 11/20/2024 5:56 PM DECK SUPERVISOR EPIC results best viewed via link to PDF [facility] Department of Pathology [address] [place] [id number] Note to Patients: This report may contain a detailed description of human tissue sent by a health care provider to the laboratory for pathologic evaluation. The content of this report is essential for diagnosis and may provide important critical findings. This information may be unfamiliar to patients to review without a medical professional present. It is advised that the patient review this report in the presence of a health care provider who can answer questions and explain the details. Final Report Patient Name: LESIA GAITAN Address: [address] [place] [address] [place] [address]- Gender: M : 1950 (Age: 74) Service: Gastro Location: [facility] Hospital #: [id number] Patient Type: [facility] Taken: 11/19/2024 Received: 11/19/2024 Accessioned: 11/19/2024 Reported: 11/20/2024 Physician(s):Dr. Padma Schwartz M.D. Diagnosis: A. Cecum, endoscopic biopsy- Acute and chronic inflammation with ulcerative change Negative for dysplasia and carcinoma Belgica Bonner M.D. Report Electronically Reviewed and Signed Out By Belgica Bonner M.D. 11/20/2024 17:56:41 Specimen(s) Received: A: Cecum biopsy Microscopic Description: Microscopic examination corroborates the diagnosis. 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 Tubular adenoma of colon. Colonoscopy. Gross Description: The specimen is submitted in a single formalin filled container labeled LESIA GAITAN and cecum biopsy . It is multiple fragments of yun tissue fragments measuring 1 and 2 mm. All in one cassette. Shawn Ayala R.N., P.A./Belgica Bonner M.D. REPORT IMAGES AND SCANNED DOCUMENTS, IF INCLUDED, ONLY VIEWABLE IN PDF VERSION OF REPORT The performance characteristics of some immunohistochemical stains, fluorescence in-situ hybridization tests and immunophenotyping by flow cytometry cited in this report (if any) were determined by the Surgical Pathology Department at [facility] as part of an ongoing research associate quality control qc program and in compliance with federally mandated regulations drawn from the Clinical Laboratory Improvement Act of 1988 (CLIA '88). Some of these tests rely on the use of analyte specific reagents and are subject to specific labeling requirements by the US Food and Drug Administration. Such diagnostic tests may only be performed in a facility that is certified by the Department of Health and Human Services as a high complexity laboratory under CLIA '88. The FDA has determined that such clearance or approval is not necessary. This test is used for clinical purposes. It should not be regarded as investigational or for research. Nevertheless, federal rules concerning the medical use of analyte specific reagents require that the following disclaimer be attached to the report: This test was developed and its performance characteristics determined by the Surgical Pathology Department [facility]. It has not been cleared or approved by the U. S. Food and Drug Administration. Note for decalcified specimens: This assay has not been validated on decalcified tissues. Results should be interpreted with caution given the possibility of false negativity on decalcified specimens Padma Schwartz MD LAB PATHOLOGY ORDERABLES F inal Result PATHOLOGY [facility]) [address] [place], [place] [id number] * Colonoscopy (11/19/2024 8:50 AM DECK SUPERVISOR) Anatomical Region Laterality Modality Other Narrative Procedure Note Padma Schwartz MD - 11/19/2024 8:50 AM CST [facility] Patient Name: Lesia Gaitan Procedure Date: 11/19/2024 8:50 AM Date of : 1950 Admit Type: Outpatient Age: 74 Gender: Male Attending MD: Padma Schwartz M.D. Room: [facility] 1 Note Status: Finalized Patient Profile: This is a 74 year old male. Long history ofulcerative colitis in clinical remission with no specific GI symptoms on Lialda 2.4 g daily. No family historyof colon cancer. History of adenoma polyps in thepast. Procedure: Colonoscopy Indications: High risk colon cancer surveillance: Ulcerativeleft sided colitis of 8 (or more) years duration, Last colonoscopy: January 2022 Referring MD: NANDO Talley Providers: Padma Schwartz M.D. Impression: - Diffuse severe inflammation was found in thececum secondary to colitis. Biopsied to rule out polyp formation. - The descending colon, transverse colon andascending colon are normal. - Diverticulosis in the sigmoid colon. - Internal hemorrhoids. Recommendation: - Await pathology results. - Repeat colonoscopy in 1 year for surveillance. - Continue present medications. Medicines: Monitored Anesthesia Care Complications: No immediate [...] noanticoagulant or antiplatelet agents. ASA Grade Assessment: Per anesthesia note and evaluation. After reviewing the risks and benefits, the patient was deemed in satisfactory condition to undergo the procedure. The benefits, risks and alternatives of theprocedure and sedation were discussed and informed consentwas obtained. All questions were answered. Please referto the signed informed consent document in the medical record. The bowel preparation used was Miralax via split dose instruction. The bowel preparation usedwas bisacodyl tablets via split dose instruction. The scope was passed under direct vision. The Pediatric Colonoscope [id number]-[id number] was introducedthrough the anus and advanced to the the cecum, identifiedby appendiceal orifice and ileocecal valve. Thequality of the bowel preparation was good. Bowel prep was administered using a split dose. Findings: Small external hemorrhoids were found on perianal exam. Diffuse severe inflammation characterized by congestion (edema), erosions, erythema and granularity was found in the base of thececum. Biopsies were taken with a cold forceps for histology. The ileocecal valve and the terminal ileum both appeared normal The descending colon, transverse colon and ascending colon appeared normal. Many small-mouthed diverticula were found in the sigmoid colon. No inflammatory changes noted in any other part in the colon except the cecum. The rectum appeared normal Internal hemorrhoids were found during retroflexion. The hemorrhoids were medium-sized. Electronically signed by Padma Schwartz M.D. Padma Schwartz M.D. 11/19/2024 10:13:27 AM Number of Addenda: 0 Note Initiated On: 11/19/2024 8:50 AM Procedure Code(s): --- Professional --- 36016, Colonoscopy, flexible; with biopsy, single or multiple Diagnosis Code(s): --- Professional --- K51.50, Left sided colitis without complications K64.8, Other hemorrhoids K52.9, Noninfective gastroenteritis and colitis, unspecified K57.30, Diverticulosis of large intestine without perforation orabscess without bleeding CPT copyright 2020 [employer]. All rights reserved. The codes documented in this report are preliminary and upon optomechanical technician reviewmay be revised to meet current compliance requirements. Recognized by the [employer] for promoting quality in endoscopy Padma Schwartz MD ENDOSCOPY PROCEDURES Final Result * PSA screen (11/09/2023 10:51 AM DECK SUPERVISOR) PSA-Total 3.57 <=6.20 ng/mL VIRGILIO GUPTA (VON) [...] revised 22. Blood 11/09/2023 10:5 1 AM DECK SUPERVISOR 11/09/2023 11:51 AM DECK SUPERVISOR Abhijit Jeter MD LAB BLOOD ORDERABLES F inal Result VIRGILIO GUPTA ([place]) [address] [facility] [place] [address] * Hepatitis C antibody (02/24/2020 4:39 PM CDT) Hep C Ab Nonreactive Nonreactive JANICERAJWINDER GUPTA ([place]) Comment: Interpretive Data Nonreactive: Antibodies to HCV [...] last revised on 2019. Testing performed by: [facility], [address] [place] [address], [place] [address] Blood specimen (specimen) 02/24/2020 4:39 PM CDT 02/25/2020 9:35 AM CDT Sheila Mauro DO LAB MICROBIOLOGY - GENERAL ORDERABLES Final Result Performing Organization Address [facility]/ZIP Co de Phone Number VIRGILIO GUPTA (VON) [address] [facility] [place] [address] from Last 3 Months or Most Recently Relevant to Health Maintenance Insurance (Home) [address] [place] [address] [facility] MEDICARE ADVANTAGE [facility] Address: [address] [place] [address] [facility] MDCR HMO REF [facility] Address: [address] [place] [address] [facility] MEDICARE ADVANTAGE [facility] Address: [address] [address] [place] [phone] Advance Directives For more information, please contact: [phone] * Full Code (Latest Code Status on File) Date Activated Date Inactivated Comments 11/19/2024 8:23 AM 11/19/2024 2:45 PM * Full Code Date Activated Date Inactivated Comments 11/19/2024 8:23 AM 11/19/2024 8:23 AM * Full Code Date Activated Date Inactivated Comments 01/18/2022 9:27 AM 01/18/2022 4:25 PM * Full Code Date Activated Date Inactivated Comments 01/18/2022 9:27 AM 01/18/2022 9:27 AM * Full Code Date Activated Date Inactivated Comments 12/03/2019 7:48 AM 12/03/2019 2:02 PM 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
--- OUTSIDE RECORDS SUMMARY | 2025-01-12 10:04 | XMS_ITS | Referral Summary ---
Author Organization [facility] Building B Address [address] [place] [address] Care Team Providers Care Applications Development Consultant Name Role Phone Padma Schwartz MD Unavailable [phone] Suleiman Del Cid MD Unavailable Abhijit Jeter MD Unavailable [phone] Rafat Oswald MD Primary Care Provider [phone] Encounters Date Type Department Care Team Description 12/04/2024 Documentation Advanced [facility] [address] [place] [address] Abby Hicks CPhT 12/03/2024 10:00 AM [employer] Office Visit [facility] G[facility] at [address] [place] [address] Narciso Child NP Ulcerative 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) (Primary Dx); Tubular adenoma of colon; Gastroesophageal reflux disease with esophagitis without hemorrhage; Schatzki's ring 12/02/2024 Results Follow-Up [facility] at [address] [place] [address] Narciso Child NP 11/28/2024 12:21 PM [employer] - 11/28/2024 11:59 PM [employer] Hospital Encounter [facility] Emergency, Room R Discharge Disposition: Discharge to home or self care 11/28/2024 2:40 PM [employer] - 11/28/2024 4:33 PM [employer] Emergency [facility] Emergency Department [address] [place] [address] Mandeep Damian MD Kidney stone on left side (Primary Dx) Discharge Disposition: Discharge to home or self care 11/27/2024 2:10 PM [employer] Lab [facility] [address] [place] [address] Ulcerative 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) 11/27/2024 Telephone [facility] G[facility] at [address] [place] [address] Janie Bagley MA 11/26/2024 Telephone [facility]enter[facility] at [address] [place] [phone] Analilia Edwards Schedule Colonoscopy 11/25/2024 Results Follow-Up [facility] at [address] [address] Padma Schwartz MD 11/25/2024 8:30 AM [employer] Office Visit [facility] [address] [place] [address] [address] [address] Suleiman Del Cid MD TADEO (obstructive sleep apnea) (Primary Dx); Hypersomnia with sleep apnea; Overweight (BMI 25.0-29.9) 11/19/2024 9:32 AM [employer] Anesthesia Event [address] [address] Amy Gandara MD 11/19/2024 9:00 AM [employer] - 11/19/2024 9:30 AM [employer] Surgery [address] [address] Padma Schwartz MD COLON BIOPSY 11/19/2024 7:45 AM [employer] - 11/19/2024 10:45 AM [employer] Hospital Encounter [address] [address] Padma Schwartz MD Ulcerative 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); Tubular adenoma of colon Discharge Disposition: Discharge to home or self care from Last 3 Months Allergies No known active allergies Medications meclizine [...] CF, PEN) 40 mg/0.4 mL pen injector kitIndications:Ulc erative Colitis Inject 0.4 mL (40 mg total) under the skin every 14 (fourteen) days 6 each 3 12/03/19 25 Active adalimumab (HUMIRA, CF, PEN) 80 mg/0.8 mL pen injector kitIndications:Ulc erative Colitis Subcutaneous injection-160 mg (given over 1 or 2 days), then 80 mg 2 weeks later (day 15), then maintenance dose of 40 mg every 2 weeks (see 2nd Rx). 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 Cont. Current prescription medications, mesalamine. Managed by GI. Esophageal dysphagia 12/06/2021 Tubular adenoma of colon 12/06/2021 History of vertigo 02/24/2021 Oscillopsia 12/10/2020 Degenerative disc disease, cervical 12/08/2020 Lightheadedness 12/03/2020 Assessment & Plan (12/03/2023 2:44 PM [employer]): Hearing test 48 ounces of caffeine free and soda free fluid daily Consider physical therapy for neck Assessment & Plan (12/03/2020 8:11 PM [employer]): Mildly symptomatic. Trial of meclizine. Patient will let me know the name of the PT company he would like for me to refer him to. Go to nearest ER if S/Sxs worsen. C-Spine xrays ordered. Chronic pain of right knee 12/03/2020 Assessment & Plan (12/03/2020 8:12 PM [employer]): Requested referral to Ortho for further eval./mgmt. [...] (10/20/2019): Added automatically from request for surgery [id number] Assessment & Plan (10/20/2019 11:10 AM [employer]): Overdue for colonoscopy. Will have him set this up today. TADEO (obstructive sleep apnea) 11/19/2018 Assessment & Plan (02/25/2020 8:35 AM CDT): Managed by sleep medicine. Assessment & Plan (11/19/2018 1:32 PM [employer]): Non-compliant with CPAP because cannot tolerate mask Will contact us with company name Sleep study done about 15-20 years ago Sleep study was done at [facility] Pt. Does snore, wakes up coughing, [...] Urologist. Assessment & Plan (11/19/2018 1:30 PM [employer]): S/P TURP Followed by Dr. Jose Jeter [...] (10/20/2019): Added automatically from request for surgery [id number] Assessment & Plan (02/24/2021 8:31 PM CDT): Asx. Continue current therapy. Assessment & Plan (12/03/2020 8:11 PM [employer]): Asx, labs ordered. Assessment & Plan (02/25/2020 8:35 AM CDT): Managed by GI. Assessment & Plan (10/20/2019 11:09 AM [employer]): Pt appears to have mild UC disease. [...] Bronchitis 11/04/2015 11/19/2018 Overview (01/11/2017): Bronchitis Immunizations Immunization Administration Dates Next Due COVID-19 mRNA ([employer]) 0.3 m L (30 mcg) vaccine (12 [...] on file Legal Sex Male 11:54 PM [employer] Gender Identity Male 11/01/2021 11:42 AM [employer] Sexual Orientation Not on file Last Filed Vital Signs Vital Sign Reading Time Taken Comments Blood Pressure 121/76 12/03/2024 10:02 AM [employer] Pulse 68 12/03/2024 10:02 AM [employer] Temperature 36.8 C (98.2 F) 11/28/2024 12:50 PM [employer] Respiratory Rate 17 11/28/2024 12:50 PM [employer] Oxygen Saturation 98% 12/03/2024 10:02 AM [employer] Inhaled Oxygen Concentration - - Weight 91.3 kg (201 lb 4.8 oz) 12/03/2024 10:02 AM [employer] Height 182.9 cm (6') 12/03/2024 10:02 AM [employer] Body Mass Index 27.3 12/03/2024 10:02 AM [employer] Plan of Treatment Upcoming Encounters Date Type Department Care Team (Late st Contact Info) Description 11/20/2025 8:00 AM [employer] Hospital Encounter [facility] [address] [place] [address] Padma Schwartz MD [address] [place] [address] [address] 11/20/2025 8:00 AM [employer] - 11/20/2025 8:30 AM [employer] Surgery [facility] [address] [place] [address] Padma Schwartz MD [address] [place] [address] [place] [address] COLONOSCOPY Scheduled Procedures Name Priority Associated Diagnoses Date/Ti me COLONOSCOPY History of colon polyps 11/20/2025 8:00 AM [employer] Procedures Procedure Name Priority Date/Time Associated Diagnosis Comments CT ABDOMEN PELVIS WO CONTRAST ED 11/28/2024 3:27 PM [employer] URINALYSIS, MICROSCOPIC ONLY STAT 11/28/2024 1:08 PM [employer] URINALYSIS AND REFLEX TO MICROSCOPIC AND CULTURE STAT 11/28/2024 1:08 PM [employer] EGFR STAT 11/28/2024 1:04 PM [employer] DIFFERENTIAL AUTO STAT 11/28/2024 1:0 4 PM [employer] COMPREHENSIVE METABOLIC PANEL STAT 11/28/2024 1:04 PM [employer] CBC WITH AUTO DIFFERENTIAL STAT 11/28/2024 1:04 PM [employer] EGFR Routine 11/27/2024 2:10 PM [employer] Ulcerative 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) DIFFERENTIAL AUTO Routine 11/27/2024 2:1 0 PM [employer] Ulcerative 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) CBC WITH AUTO DIFFERENTIAL Routine 11/27/2024 2:10 PM [employer] Ulcerative 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) COMPREHENSIVE METABOLIC PANEL Routine 11/27/2024 2:10 PM [employer] Ulcerative 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) CRP (ACUTE PHASE) Routine 11/27/2024 2:1 0 PM [employer] Ulcerative 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) ERYTHROCYTE SEDIMENTATION RATE Routine 11/27/2024 2:10 PM [employer] Ulcerative 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) TB TEST, QUANTIFERON GOLD Routine 11/27/2024 2:10 PM [employer] Ulcerative 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) HEPATITIS B SURFACE ANTIBODY (IMMUNE STATUS) Routine 11/27/2024 2:10 PM [employer] Ulcerative 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) HEPATITIS B SURFACE ANTIGEN Routine 11/27/2024 2:10 PM [employer] Ulcerative 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) HEPATITIS B CORE IGM Routine 11/27/2024 2:10 PM [employer] Ulcerative 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) SURGICAL PATHOLOGY STAT 11/19/2024 11 :34 AM [employer] Ulcerative 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) Tubular adenoma of colon COLON BIOPSY 11/19/2024 9:23 AM [employer] Ulcerative 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) Tubular adenoma of colon COLONOSCOPY 11/19/2024 8:50 AM [employer] PSA SCREEN Routine 11/09/2023 10:51 AM [employer] HEPATITIS C ANTIBODY Routine 02/24/2020 4:39 PM CDT Encounter for hepatitis C screening test for low risk patient from Last 3 Months or Most Recently Relevant to Health Maintenance Results * CT Abdomen Pelvis WO Contrast (11/28/2024 3:27 PM [employer]) Anatomical Region Laterality Modality Body N/A Computed Tomogra phy 11/28/2024 3:34 PM [employer] Narrative 11/28/2024 3:49 PM [employer] EXAM DESCRIPTION: CT ABDOMEN PELVIS WO CONTRAST [...] Ambrose Christianson M.D. AG: DEVI Report ID: [id number] Reading Location: [id number] Procedure Note Ambrose Christianson MD - 11/28/2024 [...] Ambrose Christianson M.D. AG: DEVI Report ID: [id number] Reading Location: [place] [address] Mandeep Damian MD IM CT PROCEDURES Final Resu lt * (ABNORMAL) Urinalysis reflex to microscopic and culture Urine (11/28/2024 1:08 PM [employer]) Color, ur Straw Yellow Clarity, ur Clear Clear [facility] (VON) Specific gravity, ur 1.010 1.003 - [...] tendency for uric acid stone formation. Source: [facility] [employer] Current Interpretive Data was last revised on [...] Reflex to microscopic UA will be performed. [facility] (VON) Urine 11/28/2024 1:08 PM [employer] 11/28/2024 1:11 PM [employer] Mandeep Damian MD LAB MICROBIOLOGY - GENERAL O RDERABLES Final Result [facility] (VON) 1 [facility] [place] [address] * (ABNORMAL) Urinalysis, microscopic only (11/28/2024 1:08 PM [employer]) WBC, ur 0-5 0 - 5 /HPF RBC, ur >50(A) 0 - 2 /HPF [facility] ([facility]ON) Mucous, ur Present(A) [facility] (VON) Culture Reflex Comment Reflex conditions for urine culture (WBC >10) not met. [facility] (VON) Urine 11/28/2024 1:08 PM [employer] 11/28/2024 1:11 PM [employer] Mandeep Damian MD LAB URINE ORDERABLES Final R esult [facility] ([place]AL[place]) 1 [facility] [place] [address] * eGFR (11/28/2024 1:04 PM [employer]) eGFR >90 >=60 mL/min/1. 73 m2 Comment: [...] last reviewed 2021. Blood 11/28/2024 1:04 PM [employer] 11/28/2024 1:11 PM [employer] Mandeep Damian MD LAB BLOOD ORDERABLES Final R esult [facility] (VON) 1 [facility] [place] [address] * Differential, auto (11/28/2024 1:04 PM [employer]) Neutrophil abs 6.3 1.5 - 6.5 K/cumm Imm gran abs 0.0 0.0 - 0.1 K/cumm [facility] ([place]) Lymphocyte abs 0.8 0.8 - 3.3 K/cumm [...] revised on 2018. Blood 11/28/2024 1:04 PM [employer] 11/28/2024 1:11 PM [employer] us Mandeep Damian MD LAB BLOOD ORDERABLES Final R esult [facility] ([place]) 1 [facility] [place] [address] * CBC with auto differential (11/28/2024 1:04 PM [employer]) [facility] WBC 8.1 3.8 - 9.9 K/cumm Hgb 14.8 13.0 - 17.5 g/dL [facility] ([facility]ON) Hct 43.8 38.9 - 50.3 % [facility] ([facility]) Plt 254 150 - 400 K/cumm [facility] ([facility]ON) MPV 9.7 9.1 - 12.3 fL [facility] ([facility]) RBC 5.14 4.30 - 5.80 M/cumm [facility] ([facility]) MCV 85.2 81.3 - 96.4 fL [facility] ([facility]ON) MCH 28.8 27.1 - 33.3 pg [facility] ([facility]) MCHC 33.8 32.3 - 35.7 g/dL [facility] ([facility]) RDW CV 12.2 11.1 - 14.9 % [facility] ([facility]) RDW SD 38.1 35.7 - 48.[address] [facility] NRBC abs 0.00 0.00 - 0.01 K/cumm [facility] Blood Venous blood specimen / Unknown 11/28/2024 1:04 PM [employer] 11/28/2024 1:11 PM [employer] Mandeep Damian MD LAB BLOOD ORDERABLES Final R esult [facility] ([facility] 1 [facility] [place] [address] * Comprehensive metabolic panel (11/28/2024 1:04 PM [employer]) [facility] Sodium 140 135 - 145 mmol/L Potassium, [...] 2022. Calcium 9.0 8.5 - 10.3 mg/dL [facility] Bilirubin, total 0.8 0.1 - 1.2 mg/dL [facility] ([facility]) Protein, pl 7.2 6.5 - 8.5 g/dL [facility] ([facility]) Albumin 4.1 3.5 - 5.0 g/dL [facility] ([facility]) Alk phos 57 40 - 130 Units/L [facility] ([facility]) ALT 18 7 - 55 Units/L [facility] ([facility]) AST 23 10 - 50 Units/L [facility] ([facility]ON) Comment:Slightly Hemolyzed S pecimen Blood Venous blood specimen / Unknown 11/28/2024 1:04 PM [employer] 11/28/2024 1:11 PM [employer] Mandeep Damian MD LAB BLOOD ORDERABLES Final R esult [facility] (VON) 1 [facility] of Laboratories [place], [place] [id number] * eGFR (11/27/2024 2:10 PM [employer]) eGFR 89 >=60 mL/min/1. 73 m2 Comment: [...] was last reviewed 2021. Testing performed by: [address] [address] Blood 11/27/2024 2:10 PM [employer] 11/27/2024 6:02 PM [employer] Narciso Child TOOL AND DIE REPAIR LAB BLOOD ORDERABLE S Final Result [facility] ([place]) 1 [facility] [place] [address] * Differential, auto (11/27/2024 2:10 PM [employer]) Neutrophil abs 5.4 1.5 - 6.5 K/cumm Comment:Testing performed by : [address] [address] Imm gran abs 0.1 0.0 - 0.1 K/cumm [facility] (VON) Comment:Testing performed by : [facility], [address] [place] [address]., [address] Lymphocyte abs 1.1 0.8 - 3.3 K/cumm [facility] (VON) Comment:Testing performed by : [address] [address] Monocyte abs 0.6 0.2 - 0.8 K/cumm [facility] (VON) Comment:Testing performed by : [address] [address] Eosinophil abs 0.3 0.0 - 0.5 K/cumm [facility] (VON) Comment:Testing performed by : [facility], [address] [place] [address]., [address] Basophil abs 0.1 0.0 - 0.1 K/cumm [facility] (VON) Comment:Testing performed by : [facility], [address] [place] [address]., [address] Neutrophil pct 70.9 % [facility] (VON) Comment: Interpretive Data Percent cell count reference ranges are not reported, since discordance with absolute values may lead to misinterpretation of CBC data. Current Interpretive Data was last revised on 2018. Testing performed by: [facility], [address] [place] [address]., [address] Imm gran pct 0.8 % [facility] ([facility]ON) Comment: Interpretive Data Percent cell count reference ranges are not reported, since discordance with absolute values may lead to misinterpretation of CBC data. Current Interpretive Data was last revised on 2018. Testing performed by: [facility], [address] [place] [address]., [address] Lymphocyte pct 14.2 % [facility] (VON) Comment: Interpretive Data Percent cell count reference ranges are not reported, since discordance with absolute values may lead to misinterpretation of CBC data. Current Interpretive Data was last revised on 2018. Testing performed by: [address] [address] Monocyte pct 8.5 % [facility] ([facility]ON) Comment: Interpretive Data Percent cell count reference ranges are not reported, since discordance with absolute values may lead to misinterpretation of CBC data. Current Interpretive Data was last revised on 2018. Testing performed by: [facility], [address] [place] [address]., [address] Eosinophil pct 4.5 % [facility] ([facility]ON) Comment: Interpretive Data Percent cell count reference ranges are not reported, since discordance with absolute values may lead to misinterpretation of CBC data. Current Interpretive Data was last revised on 2018. Testing performed by: [address] [address] Basophil pct 1.1 % [facility] ([facility]) Comment: Interpretive Data Percent cell count reference ranges are not reported, since discordance with absolute values may lead to misinterpretation of CBC data. Current Interpretive Data was last revised on 2018. Testing performed by: [address], [address] Blood 11/27/2024 2:10 PM [employer] 11/27/2024 5:38 PM [employer] Narciso Child [employer] AND [employer] REPAIR LAB BLOOD ORDERABLE S Final Result [facility] (VON) 1 [facility] [place] [address] * TB test, quantiferon gold (11/27/2024 2:10 PM [employer]) [facility] Quantiferon TB Gold Negative Negative Pyrites ref Lab Comment: No interferon-gamma response to [...] Interferon-gamma level <0.35 IU/mL. Testing performed by: [address] [address] TB-Nil 0.00 IUnits/mL [facility] (VON) Comment:Testing performed by : [address] [address] TB2-Nil 0.00 IUnits/mL [facility] (VON) Comment:Testing performed by : [address] [address] Mitogen-Nil 8.38 IUnits/mL [facility] (VON) Comment:Testing performed by : [address] [address] NIL 0.01 IUnits/mL [facility] (VON) Comment: Test Performed by: [facility] [address] [id number] Hearing Aid Repair Technician: Mahi Peterson Ph.D.; CLIA# [id number] Testing performed by: [address], [address] Blood 11/27/2024 2:10 PM [employer] 11/27/2024 5:38 PM [employer] Narciso Child [employer] AND [employer] REPAIR LAB BLOOD ORDERABLE S Final Result [facility] (VON) 1 [facility] [place] [address] Pyrites ref Lab * (ABNORMAL) CBC with auto differential (11/27/2024 2:10 PM [employer]) WBC 7.5 3.8 - 9.9 K/cumm Comment:Testing performed by : [address], [address] Hgb 14.9 13.0 - 17.5 g/dL [facility] (VON) Comment:Testing performed by : [address], [address] Hct 46.6 38.9 - 50.3 % [facility] (VON) Comment:Testing performed by : [address], [address] Plt 276 150 - 400 K/cumm [facility] (VON) Comment:Testing performed by : [address], [address] MPV 9.8 9.1 - 12.3 fL [facility] (VON) Comment:Testing performed by : [address], [address] RBC 5.27 4.30 - 5.80 M/cumm [facility] (VON) Comment:Testing performed by : [address], [address] MCV 88.4 81.3 - 96.4 fL [facility] (VON) Comment:Testing performed by : [facility], [address] [place] [address]., [address] MCH 28.3 27.1 - 33.3 pg [facility] (VON) Comment:Testing performed by : [facility], [address] [place] [address], [address] MCHC 32.0(L) 32.3 - 35.7 g/dL [facility] (VON) Comment:Testing performed by : [facility], [address] [place] [address], [address] RDW CV 12.5 11.1 - 14.9 % [facility] (VON) Comment:Testing performed by : [facility], [address] [place] [address], [address] RDW SD 40.7 35.7 - 48.1 fL [facility] (VON) Comment:Testing performed by : [facility], [address] [place] [address], [address] NRBC abs 0.00 0.00 - 0.01 K/cumm [facility] (VON) Comment:Testing performed by : [facility], [address] [place] [address], [address] Blood 11/27/2024 2:10 PM [employer] 11/27/2024 5:38 PM [employer] Narciso Child TOOL AND DIE REPAIR LAB BLOOD ORDERABLE S Final Result [facility] (VON) 1 [facility] [place] [address] * Hepatitis B core antibody, IgM Blood (11/27/2024 2:10 PM [employer]) Hep B core IgM Nonreactive Nonreactive Comment: Interpretive Data If HepB Core IgM Ab is reported as Equivocal, a new sample should be drawn in two weeks for testing. Current interpretive data was last revised on 19. Testing performed by: [address], [address] Blood 11/27/2024 2:10 PM [employer] 11/27/2024 5:38 PM [employer] [facility] AND D[facility] REPAIR LAB MICROBIOLOGY - GENERAL ORDERABLES Final Result [facility] (VON) 1 [facility] [place] [address] * Hepatitis B surface antibody (immune status) Blood (11/27/2024 2:10 PM [employer]) HBsAb (immune status) Nonreactive Comment: Interpretive Data [...] last revised on 19. Testing performed by: [facility], [address] [place] [address]., [address] Blood 11/27/2024 2:10 PM [employer] 11/27/2024 5:38 PM [employer] [facility] TOOL AND DIE REPAIR LAB MICROBIOLOGY - GENERAL ORDERABLES Final Result Performing Organization Address City/[facility] Co de Phone Number [facility] (VON) [address] [place] [address] * Hepatitis B Surface Antigen Blood (11/27/2024 2:10 PM [employer]) HepBsAg Nonreactive Nonreactive Comment:Testing performed by : [facility], [address] [place] [address]., [id number] Blood 11/27/2024 2:10 PM [employer] 11/27/2024 5:38 PM [employer] [facility] TOOL AND DIE REPAIR LAB MICROBIOLOGY - GENERAL ORDERABLES Final Result [facility] (VON) 1 [facility] [place] [address] * Erythrocyte sedimentation rate (11/27/2024 2:10 PM SUPERVIS[employer]) Pathologist [facility] Erythrocyte sedimentation rate 11 1 - 20 mm/hr Comment:Testing performed by : [facility], [address] [place] [address]., [id number] Blood 11/27/2024 2:10 PM [employer] 11/27/2024 5:38 PM [employer] [facility] TOOL AND DIE REPAIR LAB BLOOD ORDERABLE S Final Result Performing Organization Address City/[facility]/ZIP Co de Phone Number VIRGILIO GUPTA (PALMS) 1 [facility] [place] [address] * CRP (acute phase) (11/27/2024 2:10 PM SU[employer]) [facility] CRP <3.0 <=10.0 mg/L Comment:Testing performed by : [facility], [address] [place] [address], [id number] Blood 11/27/2024 2:10 PM [employer] 11/27/2024 5:38 PM [employer] [facility] TOOL AND DIE REPAIR LAB BLOOD ORDERABLE S Final Result Performing Organization Address City/[facility]/ZIP Co de Phone Number VIRGILIO GUPTA (VON) 1 [facility] [place] [address] * (ABNORMAL) Comprehensive metabolic panel (11/27/2024 2:10 PM [employer]) [facility] Sodium 141 135 - 145 mmol/L Comment:Testing performed by : [facility], [address] [place] [address]., [address] Potassium, pl 4.3 3.3 - 4.9 mmol/L VIRGILIO GUPTA (VON) Comment:Testing performed by : [facility], [address] [place] [address]., [address] Chloride 104 97 - 110 mmol/L VIRGILIO GUPTA (VON) Comment:Testing performed by : [facility], [address] [place] [address]., [address] CO2 29 22 - 32 mmol/L [facility] (VON) Comment:Testing performed by : [facility], [address] [place] [address]., [address] Anion gap 8 2 - 15 mmol/L [facility] (VON) Comment:Testing performed by : [facility], [address] [place] [address]., [address] BUN 11 6 - 25 mg/dL [facility] (VON) Comment:Testing performed by : [address] [address] Creatinine 0.91 0.80 - 1.30 mg/dL [facility] (VON) Comment: Icteric sample, test results may be affected. Testing performed by: [address] [address] Glucose 72 70 - 199 mg/dL CERNER [...] classification and Diagnosis of Diabetes Diabetes Care 202; 46: S19-S40. Current interpretive data was last revised 2022. Testing performed by: [address] [address] Calcium 9.0 8.5 - 10.3 mg/dL [facility] (VON) Comment:Testing performed by : [address] [address] Bilirubin, total 1.5(H) 0.1 - 1.2 mg/dL [facility] (VON) Comment:Testing performed by : [address] [address] Protein, pl 7.1 6.5 - 8.5 g/dL [facility] (VON) Comment:Testing performed by : [address] [address] Albumin 4.0 3.5 - 5.0 g/dL [facility] (VON) Comment:Testing performed by : [facility], [address] [place] [address]., [address] Alk phos 59 40 - 130 Units/L [facility] (VON) Comment:Testing performed by : [facility], [address] [place] [address], [address] ALT 15 7 - 55 Units/L [facility] (VON) Comment:Testing performed by : [facility], [address] [place] [address], [address] AST 28 10 - 50 Units/L [facility] (VON) Comment:Testing performed by : [facility], [address] [place] [address], [address] Blood 11/27/2024 2:10 PM [employer] 11/27/2024 5:38 PM [employer] Narciso Child TOOL AND DIE REPAIR LAB BLOOD ORDERABLE S Final Result [facility] (PALMS) 1 [facility] [place] [address] * Surgical pathology (11/19/2024 11:34 AM [employer]) Tissue specimen (specimen) (Colon, Biopsy) 11/19/2024 9:54 AM [employer] Narrative PATHOLOGY [facility] (PALMS) - 11/20/2024 5:56 PM [employer] EPIC results best viewed via link to PDF [facility] Department of Pathology [address] [place] [id number] Note to Patients: This report may contain [...] Final Report Patient Name: LESIA GAITAN Address: [address] [place] [address] [place] [address]- Gender: M : 1950 (Age: 74) Service: Gastro [facility]: [facility] #: [id number] Patient Type: [facility] Taken: 11/19/2024 Received: 11/19/2024 Accessioned: 11/19/2024 Reported: [...] a single formalin filled container labeled LESIA FAIR and cecum biopsy . It is multiple [...] determined by the Surgical Pathology Department at [facility] as part of an ongoing senior quality technician program and in compliance with federally mandated [...] characteristics determined by the Surgical Pathology Department [facility]. It has not been cleared or approved by the U. S. Food and Drug Administration. Note for decalcified specimens: This assay has not been validated on decalcified tissues. Results should be interpreted with caution given the possibility of false negativity on decalcified specimens us Padma Schwartz MD LAB PATHOLOGY ORDERABLES F inal Result PATHOLOGY [facility] REGINALD) 1 [place] [address] * Colonoscopy (11/19/2024 8:50 AM [employer]) Anatomical Region Laterality Modality Other Narrative Procedure Note Padma Schwartz MD - 11/19/2024 8:50 AM CST [facility] Patient Name: Lesia Gaitan Procedure Date: 11/19/2024 8:50 AM Date of : 1950 Admit Type: Outpatient Age: 74 Gender: Male Attending MD: Padma Schwartz M.D. Room: [facility] ENDOSCOPY ROOM 1 Note Status: Finalized [...] under direct vision. The Pediatric Colonoscope [id number] was introducedthrough the anus and advanced to [...] 8:50 AM Procedure Code(s): --- Professional --- 15074, Colonoscopy, flexible; with biopsy, single or multiple Diagnosis Code(s): --- Professional --- K51.50, Left sided colitis without complications K64.8, Other hemorrhoids K52.9, Noninfective gastroenteritis and colitis, unspecified K57.30, Diverticulosis of large intestine without perforation orabscess without bleeding CPT copyright 2020 [employer]. All rights reserved. The codes documented in this report are preliminary and upon remote inpatient coder reviewmay be revised to meet current compliance requirements. Recognized by the [employer] for promoting quality in endoscopy Padma Schwartz MD ENDOSCOPY PROCEDURES Final Result * PSA screen (11/09/2023 10:51 AM [employer]) PSA-Total 3.57 <=6.20 ng/mL VIRGILIO GUPTA (VON) [...] revised 22. Blood 11/09/2023 10:5 1 AM [employer] 11/09/2023 11:51 AM [employer] Abhijit Jeter MD LAB BLOOD ORDERABLES F inal Result VIRGILIO GUPTA (PALMS) 1 [facility] [place] [address] * Hepatitis C antibody (02/24/2020 4:39 PM CDT) Hep C Ab Nonreactive Nonreactive VIRGILIO GUPTA (PALMS) Comment: Interpretive Data Nonreactive: Antibodies to HCV [...] last revised on 2019. Testing performed by: [facility], [address] [place] [address]., [address] Blood specimen (specimen) 02/24/2020 4:39 PM CDT 02/25/2020 9:35 AM CDT us Sheila Mauro DO LAB MICROBIOLOGY - GENERAL ORDERABLES Final Result VIRGILIO GUPTA (PALMS) 1 [facility] [place] [address] from Last 3 Months or Most Recently Relevant to Health [place] [address] [facility] MEDICARE [facility] Address[facility] [address] [place] [address] [facility] MDCR HMO REF [facility] MEDICARE [facility] Address: [address] [address] [place] [address] Advance Directives For more information, please contact: [phone] * Full Code (Latest Code Status on [...] 7:48 AM 12/03/2019 2:02 PM Care Teams Applications Development Consultant Relationship Specialty Start Date End Date Rafat Oswald MD [address] [place] [address] PCP - General Family Practice 11/07/24 Padma Schwartz MD Consulting Physician Gastroenterology 02/24/20 Suleiman Del Cid MD Consulting Physician Neurology 02/24/20 Abhijit Jeter MD Consulting Physician Urology 02/24/20
--- OUTSIDE RECORDS SUMMARY | 2025-01-12 10:04 | XMS_ITS | Encounter Summary ---
Author Organization [facility] Healthcare Address [address] [place] [address] Care Team Providers Care Flash Developer Name Role Phone Padma Schwartz MD Unavailable [phone] Suleiman Del Cid MD Unavailable Abhijit Jeter MD Unavailable [phone] Rafat Oswald MD Primary Care Provider [phone] Encounter Details Date Type Department Care Team (Late st Contact Info) Description 12/02/2024 Results Follow-Up [facility] Medical Group Gastroenterology at [address] [place] [address] Narciso Child NP 4 [facility] [address] [place] [address] Social History Tobacco Use Types Packs/Day Years [...] on file Legal Sex Male 11:54 PM BOX STACKER Gender Identity Male 11/01/2021 11:42 AM BOX STACKER Sexual Orientation Not on file documented as of this encounter Functional Status documented as of this encounter Plan of Treatment Upcoming Encounters Date Type Department Care Team (Late st Contact Info) Description 11/20/2025 8:00 AM BOX STACKER Hospital Encounter [address] [address] Padma Schwartz MD [address] [place] [address] DR WINN [address] [place] [address] 11/20/2025 8:00 AM BOX STACKER - 11/20/2025 8:30 AM BOX STACKER Surgery [address] [address] Padma Schwartz MD [address] [place] [address] DR WINN [address] [place] [address] COLONOSCOPY Scheduled Procedures Name Priority Associated Diagnoses Date/Ti me COLONOSCOPY History of colon polyps 11/20/2025 8:00 AM BOX STACKER documented as of this encounter Visit Diagnoses Not on filedocumented in this encounter Care Teams Flash Developer Relationship Specialty Start Date End Date Rafat Oswald MD [address] [facility] [place] [address] PCP - General Family Practice 11/07/24 Padma Schwartz MD Consulting Physician Gastroenterology 02/24/20 Suleiman Del Cid MD Consulting Physician Neurology 02/24/20 Abhijit Jeter MD Consulting Physician Urology 02/24/20 documented as of this encounter
--- OUTSIDE RECORDS SUMMARY | 2025-01-12 10:04 | XMS_ITS | Clinical Summary ---
Author Organization [facility] Address [address] [facility] [place] [address] Care Team Providers Care Imaging Administrator Name Role Phone Rafat Oswald MD Primary Care Provider [phone] Source Comments [facility],non-owned Affiliates and Associated Physician Practices is amultiple site organization consisting of ambulatory clinics and hospital sitesin [place], [place], [place] and [place]. This disclosure is being madepursuant to the Care Everywhere program and may not contain all information available regarding this patient. Last updated 18.[facility] Allergies No known active allergies Encounters Date Type Department Care Team Description 12/15/2024 1:40 PM CDT - 12/15/2024 11:59 PM CDT Hospital Encounter [facility] [place] [address] [place] [address] Abhijit Jeter MD Discharge Disposition: Home or Self Care 11/25/2024 Travel from Last 3 Months Social History Tobacco Use Types Packs/Day Years Used Date Smoking Tobacco: Never Assessed Sex and Gender Information Value Date Recorded Sex Assigned at Not on file Gender Identity Not on file Sexual Orientation Not on file Plan of Treatment Health Maintenance Due Date Last Done Comments COLOGUARD (AGES 45-75) - COLON CA SCREENING 1950 [address] 1950 [address] COLONOGRAPHY - COLON CA SCREENING 1950 FIT - COLON CA SCREENING 1950 FLEX SIG - COLON CA SCREENING 1950 LIPID TESTING 1950 DTAP/TDAP/TD VACCINES (1 - Tdap) 1970 PNEUMOCOCCAL VACCINE 50+ (1 of 1 - PCV) 2001 ZOSTER VACCINE (1 of 2) 2001 COVID-19 VACCINE (1 - 2024- season) 2024 INFLUENZA VACCINE (#1) 2024 9, 07/10/2018, 07/09/2018, Additional history exists DEPRESSION SCREENING 10/08/2024 MEDICARE AWV CALENDAR YEAR 2024 Respiratory Syncytial Virus (RSV) Vaccine Pt: or over 60 yrs (1 - 1-dose 75+ series) 2026 COLONOSCOPY - COLON CA SCREENING 11/19/2034 11/19/2024 Colorectal Cancer Screening 11/19/2034 HEPATITIS C SCREENING Completed 11/27/2024, 025 HEPATITIS B VACCINE Aged Out No longe r eligible based on patient's age to complete this topic HIB VACCINE Aged Out No longer eligi ble based on patient's age to complete this topic HPV VACCINE Aged Out No longer eligi ble based on patient's age to complete this topic MENINGOCOCCAL (Group B) VACCINE SHARED DECISION-MAKING Aged Out No longer eligible based on patient's age to complete this topic MENINGOCOCCAL GROUPS A/C/Y/W VACCINE Aged Out No longer eligible based on patient's age to complete this topic Procedures Procedure Name Priority Date/Time Associated Diagnosis Comments MRI PROSTATE W 3D WWO CONTRAST Routine 12/15/2024 3:02 PM CDT Elevated prostate specific antigen (PSA) from Last 3 Months Results * MRI PROSTATE W 3D WWO CONTRAST (12/15/2024 3:02 PM CDT) Anatomical Region Laterality Modality Pelvis Magnetic Resonan ce 12/15/2024 5:03 PM CDT Impressions 12/15/2024 5:17 PM CDT IMPRESSION: Study detail somewhat limited and there is heterogeneous appearance of the prostate with multiple foci of susceptibility artifact suggestive of metallic foci within the prostate which could represent surgical clips or brachytherapy seeds. Correlation with treatment history is recommended. CT imaging could be useful. Given the overall poor visualization, systematic biopsy could prove useful. OVERALL PI-RADS CATEGORY: PI-RADS 2 - Low (clinically significant cancer is unlikely to be present) PI-RADS v2.1 Assessment Categories PI-RADS 1 - Very low (clinically significant cancer is highly unlikely to be present) PI-RADS 2 - Low (clinically significant cancer is unlikely to be present) PI-RADS 3 - Intermediate (the presence of clinically significant cancer is equivocal) PI-RADS 4 - High (clinically significant cancer is likely to be present) PI-RADS 5 - Very high (clinically significant cancer is highly likely to be present) > Interpreting Provider: Mehrdad Luevano MD on 12/15/2024 5:17 PM Narrative 12/15/2024 5:17 PM CDT PROCEDURE(s): MRI PROSTATE W 3D WWO CONTRAST DATE AND TIME OF EXAM(s): 12/15/2024 3:02 PM INDICATION(s): R97.20: Elevated prostate specific antigen (PSA). COMPARISON(s): None available. TECHNIQUE: PI-RADS compliant, multiparametric images of the prostate were obtained with MRI. Dynamic contrast enhanced (DCE) imaging was performed following the intravenous administration of the contrast type and dose listed below. 3D reconstructions were created and reviewed on an independent workstation. Contrast: GADOTERATE MEGLUMINE 0.5 MMOL/ML IV SSM SO:19 mL. FINDINGS: Dimensions and Volume: 4.7 x 5.2 x 4.3 cm (AP by TR by CC) for an estimated volume of 54.6 cc. Transition Zone Description: Multiple foci of susceptibility artifact are suggestive of metallic foreign bodies within the prostate which could represent surgical clips or brachytherapy seeds. No definite evidence of discrete pathologic nodule can be identified. Peripheral Zone Description: Grossly symmetric and unremarkable appearance of the peripheral zone. No definite evidence of discrete pathologic lesion. Lesions: No definite evidence of discrete pathologic lesion. Seminal Vesicles: Normal Ana Disease: None Neurovascular Bundles: Normal Prostate Margin: Normal Bones: Normal Other Pelvic Organs: Normal Procedure Note Mehrdad Luevano MD - 12/15/2024 PROCEDURE(s): MRI PROSTATE W 3D WWO CONTRAST DATE AND TIME OF EXAM(s): 12/15/2024 3:02 PM INDICATION(s): R97.20: Elevated prostate specific antigen (PSA). COMPARISON(s): None available. TECHNIQUE: PI-RADS compliant, multiparametric images of the prostate were obtained with MRI. Dynamic contrast enhanced (DCE) imaging was performedfollowing the intravenous administration of the contrast type and dose listedbelow. 3D reconstructions were created and reviewed on an independentworkstation. Contrast: GADOTERATE MEGLUMINE 0.5 MMOL/ML IV SSM SO:19 mL. FINDINGS: Dimensions and Volume: 4.7 x 5.2 x 4.3 cm (AP by TR by CC) for anestimated volume of 54.6 cc. Transition Zone Description: Multiple foci of susceptibility artifactare suggestive of metallic foreign bodies within the prostate which could represent surgical clips or brachytherapy seeds. No definite evidence of discrete pathologic nodule can be identified. Peripheral Zone Description: Grossly symmetric and unremarkableappearance of the peripheral zone. No definite evidence of discrete pathologiclesion. Lesions: No definite evidence of discrete pathologic lesion. Seminal Vesicles: Normal Ana Disease: None Neurovascular Bundles: Normal Prostate Margin: Normal Bones: Normal Other Pelvic Organs: Normal IMPRESSION: Study detail somewhat limited and there is heterogeneous appearance ofthe prostate with multiple foci of susceptibility artifact suggestive of metallic foci within the prostate which could represent surgical clipsor brachytherapy seeds. Correlation with treatment history is recommended.CT imaging could be useful. Given the overall poor visualization, systematic biopsy could proveuseful. OVERALL PI-RADS CATEGORY: PI-RADS 2 - Low (clinically significant canceris unlikely to be present) PI-RADS v2.1 Assessment Categories PI-RADS 1 - Very low (clinically significant cancer is highly unlikelyto be present) PI-RADS 2 - Low (clinically significant cancer is unlikely to bepresent) PI-RADS 3 - Intermediate (the presence of clinically significant canceris equivocal) PI-RADS 4 - High (clinically significant cancer is likely to be present) PI-RADS 5 - Very high (clinically significant cancer is highly likely franca present) > Interpreting Provider: Mehrdad Luevano MD on 12/15/2024 5:17 PM Abhijit Jeter MD MR ORDERABLES from Last 3 Months Care Teams Imaging Administrator Relationship Specialty Start Date End Date Rafat Oswald MD [address] [place] [address] PCP - General Family Medicine 12/15/24
[2025-01-12 20:24] LABS: Alanine Aminotransferase 35 U/L (6-50); Albumin Level 4.4 g/dL (3.5-5.1); Alkaline Phosphatase 60 U/L (38-126); Anion Gap 9 mmol/L (4-12); Aspartate Amino Transferase 48 U/L (17-59); Bilirubin,Total 2.2 mg/dL (0.2-1.3); Blood Urea Nitrogen 17 mg/dL (9-20); Calcium 9.1 mg/dL (8.4-10.2); Carbon Dioxide 28 mmol/L (22-30); Chloride 102 mmol/L (98-107); Cholesterol 178 mg/dL (0-200); Estimated Glomerular Filt Rate > 60; Glucose 99 mg/dL (65-110); HDL Direct 77 mg/dL; Potassium 5.3 mmol/L (3.4-5.0); Sodium 139 mmol/L (137-145); Triglycerides 126 mg/dL (<150)
[2025-01-12 20:36] LABS: LDL Cholesterol Direct 65 mg/dL
== END 2025-01-12 09:18 | disposition home or self-care (01) ==
LOC: ANHBWCLAB 09:18
PROVIDERS: PCP Nurse Practitioner Adult Health; Visit Provider Nurse Practitioner Adult Health
DX: M19.011 Primary osteoarthritis, right shoulder (principal); K50.10 Crohn's disease of large intestine without complications; K21.9 Gastro-esophageal reflux disease without esophagitis; E66.9 Obesity, unspecified
CPT/HCPCS: 36415; 73030; 80053; 80061; 82607

== ENCOUNTER 2025-01-14 14:07 | Outpatient (CLI) | payer MEDICARE, SELFPAY ==
--- OUTSIDE RECORDS SUMMARY | 2025-01-14 15:46 | XMS_ITS | Encounter Summary ---
Author Organization [facility] Healthcare Address [address] [place] [address] Care Team Providers Care Caul Fat Puller Name Role Phone Padma Schwartz MD Unavailable [phone] Suleiman Del Cid MD Unavailable Abhijit Jeter MD Unavailable [phone] Rafat Oswald MD Primary Care Provider [phone] Encounter Details Date Type Department Care Team (Late st Contact Info) Description 12/02/2024 Results Follow-Up [facility] Medical Group Gastroenterology at [address] [place] [address] Narciso Child NP 4 [facility] [address] [place] [address] Social History Tobacco Use Types Packs/Day Years [...] on file Legal Sex Male 11:54 PM FURNACE FIRER Gender Identity Male 11/01/2021 11:42 AM FURNACE FIRER Sexual Orientation Not on file documented as of this encounter Functional Status documented as of this encounter Plan of Treatment Upcoming Encounters Date Type Department Care Team (Late st Contact Info) Description 11/20/2025 8:00 AM FURNACE FIRER Hospital Encounter [address] [address] Padma Schwartz MD [address] [place] [address] DR WINN [address] [place] [address] 11/20/2025 8:00 AM FURNACE FIRER - 11/20/2025 8:30 AM FURNACE FIRER Surgery [address] [address] Padma Schwartz MD [address] [place] [address] DR WINN [address] [place] [address] COLONOSCOPY Scheduled Procedures Name Priority Associated Diagnoses Date/Ti me COLONOSCOPY History of colon polyps 11/20/2025 8:00 AM FURNACE FIRER documented as of this encounter Visit Diagnoses Not on filedocumented in this encounter Care Teams Caul Fat Puller Relationship Specialty Start Date End Date Rafat Oswald MD [address] [facility] [place] [address] PCP - General Family Practice 11/07/24 Padma Schwartz MD Consulting Physician Gastroenterology 02/24/20 Suleiman Del Cid MD Consulting Physician Neurology 02/24/20 Abhijit Jeter MD Consulting Physician Urology 02/24/20 documented as of this encounter
--- OUTSIDE RECORDS SUMMARY | 2025-01-14 15:46 | XMS_ITS | Referral Summary ---
Author Organization [facility] B Address [address] [place] [address] Care Team Providers Care Room Inspector Name Role Phone Padma Schwartz MD Unavailable [phone] Suleiman Del Cid MD Unavailable Abhijit Jeter MD Unavailable [phone] Rafat Oswald MD Primary Care Provider [phone] Encounters Date Type Department Care Team Description 12/04/2024 Documentation [facility] [address] [place] [address] Abby Hicks CPhT 12/03/2024 10:00 AM CABLE ENGINEER [employer] Office Visit [facility] G[facility] at [address] [place] [address] Narciso Child NP Ulcerative 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) (Primary Dx); Tubular adenoma of colon; Gastroesophageal reflux disease with esophagitis without hemorrhage; Schatzki's ring 12/02/2024 Results Follow-Up [facility] at [address] [place] [address] Narciso Child NP 11/28/2024 12:21 PM [employer]ABLE ENG[employer] - 11/28/2024 11:59 PM [employer]ABLE [employer] Hospital Encounter [facility] Emergency, Room R Discharge Disposition: Discharge to home or self care 11/28/2024 2:40 PM [employer]ABLE [employer] - 11/28/2024 4:33 PM [employer]ABLE ENG[employer] Emergency [facility] Emergency Department [address] [place] [address] Mandeep Damian MD Kidney stone on left side (Primary Dx) Discharge Disposition: Discharge to home or self care 11/27/2024 2:10 PM CABLE ENGINEER [employer] Lab [facility] Laboratory [address] [place] [address] Ulcerative 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) 11/27/2024 Telephone [facility] Gastroenterology at [address] [place] [phone] Janie Bagley MA 11/26/2024 Telephone [facility] G[facility]enter[facility] at [address] [place] [phone] Analilia Edwards Schedule Colonoscopy 11/25/2024 Results Follow-Up [facility] Gastroenterology at [address] [address] Padma Schwartz MD 11/25/2024 8:30 AM CABLE ENGINEER [employer] Office Visit [facility] [address] [place] [address] [address], [place] [phone] Suleiman Del Cid MD TADEO (obstructive sleep apnea) (Primary Dx); Hypersomnia with sleep apnea; Overweight (BMI 25.0-29.9) 11/19/2024 9:32 AM CABLE ENGINEER [employer] Anesthesia Event [address] [address] Amy Gandara MD 11/19/2024 9:00 AM CABLE ENG[employer]ER [employer] - 11/19/2024 9:30 AM CABLE ENG[employer]ER [employer] Surgery [address] [address] Padma Schwartz MD COLON BIOPSY 11/19/2024 7:45 AM [employer] - 11/19/2024 10:45 AM CABLE ENGINEER [employer] Hospital Encounter [address] [address] Padma Schwartz MD Ulcerative pancolitis without complication [...] 12/03/2023 Assessment & Plan (12/03/2023 2:44 PM CABLE ENGINEER [employer]): Hearing test 48 ounces of caffeine free and soda free fluid daily Consider physical therapy for neck Tinnitus 12/03/2023 Assessment & Plan (12/03/2023 2:44 PM CABLE ENGINEER [employer]): Hearing test 48 ounces of caffeine free [...] 10:16 PM CDT): Patient requests referral to tray line supervisor, referral placed. 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 Cont. Current prescription medications, mesalamine. Managed by GI. Esophageal dysphagia 12/06/2021 Tubular adenoma of colon 12/06/2021 History of vertigo 02/24/2021 Oscillopsia 12/10/2020 Degenerative disc disease, cervical 12/08/2020 Lightheadedness 12/03/2020 Assessment & Plan (12/03/2023 2:44 PM CABLE ENGINE[employer]): Hearing test 48 ounces of caffeine free and soda free fluid daily Consider physical therapy for neck Assessment & Plan (12/03/2020 8:11 PM CABLE ENGINEER [employer]ANT): Mildly symptomatic. Trial of meclizine. Patient will let me know the name of the PT company he would like for me to refer him to. Go to nearest ER if S/Sxs worsen. C-Spine xrays ordered. Chronic pain of right knee 12/03/2020 Assessment & Plan (12/03/2020 8:12 PM CABLE ENGINEER [employer]): Requested referral to Ortho for further eval./mgmt. [...] (10/20/2019): Added automatically from request for surgery [id number] Assessment & Plan (10/20/2019 11:10 AM CABLE ENGINEER [employer]ANT): Overdue for colonoscopy. Will have him set this up today. TADEO (obstructive sleep apnea) 11/19/2018 Assessment & Plan (02/25/2020 8:35 AM CDT): Managed by sleep medicine. Assessment & Plan (11/19/2018 1:32 PM CABLE ENGINEER [employer]ANT): Non-compliant with CPAP because cannot tolerate mask Will contact us with company name Sleep study done about 15-20 years ago Sleep study was done at [facility] Pt. Does snore, wakes up coughing, choking [...] Urologist. Assessment & Plan (11/19/2018 1:30 PM CABLE ENGINEER [employer]): S/P TURP Followed by Dr. Jose Jeter [...] (10/20/2019): Added automatically from request for surgery [id number] Assessment & Plan (02/24/2021 8:31 PM CDT): Asx. Continue current therapy. Assessment & Plan (12/03/2020 8:11 PM CABLE ENGINEER [employer]ANT): Asx, labs ordered. Assessment & Plan (02/25/2020 8:35 AM CDT): Managed by GI. Assessment & Plan (10/20/2019 11:09 AM CABLE ENGINEER [employer]ANT): Pt appears to have mild UC disease. [...] Immunization Administration Dates Next Due COVID-19 mRNA ([employer]) 0.3 m L (30 mcg) vaccine (12 [...] on file Legal Sex Male 11:54 PM CABLE ENGINE[employer] Gender Identity Male 11/01/2021 11:42 AM CABLE ENGINEER [employer] Sexual Orientation Not on file Last Filed Vital Signs Vital Sign Reading Time Taken Comments Blood Pressure 121/76 12/03/2024 10:02 AM CABLE ENG[employer]ER [employer] Pulse 68 12/03/2024 10:02 AM CABLE ENG[employer] Temperature 36.8 C (98.2 F) 11/28/2024 12:50 PM CABLE ENG[employer] Respiratory Rate 17 11/28/2024 12:50 PM CABLE ENG[employer] Oxygen Saturation 98% 12/03/2024 10:02 AM CABLE ENGINEER [employer] Inhaled Oxygen Concentration - - Weight 91.3 kg (201 lb 4.8 oz) 12/03/2024 10:02 AM CABLE ENG[employer] Height 182.9 cm (6') 12/03/2024 10:02 AM CABLE ENGINEER [employer] Body Mass Index 27.3 12/03/2024 10:02 AM CABLE ENGINEER [employer] Plan of Treatment Upcoming Encounters Date Type Department Care Team (Late st Contact Info) Description 11/20/2025 8:00 AM CABLE ENGINEER [employer]IDE [employer] Hospital Encounter [facility] [address] [place] [address] Padma Schwartz MD [address] [place] [address] [address] 11/20/2025 8:00 AM CABLE ENG[employer] - 11/20/2025 8:30 AM CABLE ENGINEER [employer] Surgery [facility] [address] [place] [address] Padma Schwartz MD [address] [place] [address] [place] [address] COLONOSCOPY Scheduled Procedures Name Priority Associated Diagnoses Date/Ti me COLONOSCOPY History of colon polyps 11/20/2025 8:00 AM CABLE ENG[employer] Procedures Procedure Name Priority Date/Time Associated Diagnosis Comments CT ABDOMEN PELVIS WO CONTRAST ED 11/28/2024 3:27 PM CABLE ENG[employer] URINALYSIS, MICROSCOPIC ONLY STAT 11/28/2024 1:08 PM CABLE ENG[employer] URINALYSIS AND REFLEX TO MICROSCOPIC AND CULTURE STAT 11/28/2024 1:08 PM CABLE ENG[employer] EGFR STAT 11/28/2024 1:04 PM CABLE ENG[employer] DIFFERENTIAL AUTO STAT 11/28/2024 1:0 4 PM CABLE ENG[employer] COMPREHENSIVE METABOLIC PANEL STAT 11/28/2024 1:04 PM CABLE ENG[employer] CBC WITH AUTO DIFFERENTIAL STAT 11/28/2024 1:04 PM CABLE ENG[employer] EGFR Routine 11/27/2024 2:10 PM CABLE ENG[employer]ER [employer] Ulcerative 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) DIFFERENTIAL AUTO Routine 11/27/2024 2:1 0 PM CABLE ENG[employer] Ulcerative 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) CBC WITH AUTO DIFFERENTIAL Routine 11/27/2024 2:10 PM CABLE ENG[employer]ER [employer] Ulcerative 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) COMPREHENSIVE METABOLIC PANEL Routine 11/27/2024 2:10 PM CABLE ENG[employer] Ulcerative 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) CRP (ACUTE PHASE) Routine 11/27/2024 2:1 0 PM CABLE ENG[employer] Ulcerative 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) ERYTHROCYTE SEDIMENTATION RATE Routine 11/27/2024 2:10 PM CABLE ENG[employer]ER [employer] Ulcerative 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) TB TEST, QUANTIFERON GOLD Routine 11/27/2024 2:10 PM CABLE ENG[employer]ER [employer] Ulcerative 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) HEPATITIS B SURFACE ANTIBODY (IMMUNE STATUS) Routine 11/27/2024 2:10 PM CABLE ENG[employer]ER [employer] Ulcerative 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) HEPATITIS B SURFACE ANTIGEN Routine 11/27/2024 2:10 PM CABLE ENG[employer]ER [employer] Ulcerative 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) HEPATITIS B CORE IGM Routine 11/27/2024 2:10 PM CABLE ENG[employer] Ulcerative 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) SURGICAL PATHOLOGY STAT 11/19/2024 11 :34 AM CABLE ENGINEER [employer] Ulcerative 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) Tubular adenoma of colon COLON BIOPSY 11/19/2024 9:23 AM CABLE ENGINEER [employer] Ulcerative 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) Tubular adenoma of colon COLONOSCOPY 11/19/2024 8:50 AM CABLE ENGINEER [employer] PSA SCREEN Routine 11/09/2023 10:51 AM CABLE ENGINEER [employer] HEPATITIS C ANTIBODY Routine 02/24/2020 4:39 PM CDT Encounter for hepatitis C screening test for low risk patient from Last 3 Months or Most Recently Relevant to Health Maintenance Results * CT Abdomen Pelvis WO Contrast (11/28/2024 3:27 PM CABLE ENG[employer]) Anatomical Region Laterality Modality Body N/A Computed Tomogra phy 11/28/2024 3:34 PM CABLE ENGINEER [employer] Narrative 11/28/2024 3:49 PM CABLE ENGINEER [employer] EXAM DESCRIPTION: CT ABDOMEN PELVIS WO CONTRAST [...] Ambrose Christianson M.D. AG: DEVI Report ID: [id number] Reading Location: [id number] Procedure Note Ambrose Christianson MD - 11/28/2024 [...] Ambrose Christianson M.D. AG: DEVI Report ID: [id number] Reading Location: [place] [address] Mandeep Damian MD IM CT PROCEDURES Final Resu lt * (ABNORMAL) Urinalysis reflex to microscopic and culture Urine (11/28/2024 1:08 PM CABLE ENGINEER [employer]) Color, ur Straw Yellow Clarity, ur Clear [...] tendency for uric acid stone formation. Source: [facility] [employer] Current Interpretive Data was last revised on [...] [facility] (VON) Urine 11/28/2024 1:08 PM CABLE ENGINEER [employer] 11/28/2024 1:11 PM CABLE ENGINEER [employer] Mandeep Damian MD LAB MICROBIOLOGY - GENERAL O RDERABLES Final Result [facility]IO [facility] (VON) 1 [facility] Department [place] [address] * (ABNORMAL) Urinalysis, microscopic only (11/28/2024 1:08 PM CABLE ENGINEER [employer]) WBC, ur 0-5 0 - 5 /HPF RBC, ur >50(A) 0 - 2 /HPF [facility] (VON) Mucous, ur Present(A) [facility] (VON) Culture Reflex Comment Reflex conditions for urine culture (WBC >10) not met. [facility] (VON) Urine 11/28/2024 1:08 PM CABLE ENG[employer] 11/28/2024 1:11 PM CABLE ENG[employer] Mandeep Damian MD LAB URINE ORDERABLES Final R esult [facility]IO [facility] ([place]) [address] [facility] [address] * eGFR (11/28/2024 1:04 PM CABLE ENG[employer]) eGFR >90 >=60 mL/min/1. 73 m2 Comment: [...] last reviewed 2021. Blood 11/28/2024 1:04 PM CABLE ENG[employer] 11/28/2024 1:11 PM CABLE ENG[employer] Mandeep Damian MD LAB BLOOD ORDERABLES Final R esult [facility] (VON) 1 [facility] [place] [address] * Differential, auto (11/28/2024 1:04 PM CABLE ENG[employer]) Neutrophil abs 6.3 1.5 - 6.5 K/cumm Imm gran abs 0.0 0.0 - 0.1 K/cumm [facility] ([facility]) Lymphocyte abs 0.8 0.8 - 3.3 K/cumm [facility] ([facility]) Monocyte abs 0.6 0.2 - 0.8 K/cumm [facility] ([facility]) Eosinophil abs 0.2 0.0 - 0.5 K/cumm [facility] ([facility]) Basophil abs 0.1 0.0 - 0.1 K/cumm [facility] (V[facility]) Neutrophil pct 77.8 % [facility] [...] revised on 2018. Blood 11/28/2024 1:04 PM CABLE ENG[employer] 11/28/2024 1:11 PM CABLE ENGINEER [employer] us Mandeep Damian MD LAB BLOOD ORDERABLES Final R esult [facility] ([facility]) 1 [facility] Department [place] [address] * CBC with auto differential (11/28/2024 1:04 PM CABLE ENGINEER [employer]) [facility] WBC 8.1 3.8 - 9.9 K/cumm [...] RDW SD 38.1 35.7 - 48.1 fL [facility] NRBC abs 0.00 0.00 - 0.01 K/cumm [facility] Blood Venous blood specimen / Unknown 11/28/2024 1:04 PM CABLE ENG[employer] 11/28/2024 1:11 PM CABLE ENG[employer] Mandeep Damian MD LAB BLOOD ORDERABLES Final R esult [facility] ([facility] 1 [facility] Department [place] [address] * Comprehensive metabolic panel (11/28/2024 1:04 PM CABLE ENG[employer]) [facility] Sodium 140 135 - 145 mmol/L [...] 2022. Calcium 9.0 8.5 - 10.3 mg/dL [facility] ([facility] Bilirubin, total 0.8 0.1 - 1.2 mg/dL [facility] ([facility]) Protein, pl 7.2 6.5 - 8.5 g/dL [facility] ([facility]) Albumin 4.1 3.5 - 5.0 g/dL [facility] ([facility]) Alk phos 57 40 - 130 Units/L [facility] ([facility]) ALT 18 7 - 55 Units/L [facility] ([facility]) AST 23 10 - 50 Units/L [facility] ([facility]ON) Comment:Slightly Hemolyzed S pecimen Blood Venous blood specimen / Unknown 11/28/2024 1:04 PM CABLE ENG[employer] 11/28/2024 1:11 PM CABLE ENGINEER [employer] Mandeep Damian MD LAB BLOOD ORDERABLES Final R esult [facility] (VON) 1 [facility] Department of Laboratories [place], [place] [id number] * eGFR (11/27/2024 2:10 PM CABLE ENG[employer]) eGFR 89 >=60 mL/min/1. 73 m2 Comment: [...] was last reviewed 2021. Testing performed by: [address] [address] Blood 11/27/2024 2:10 PM CABLE ENG[employer] 11/27/2024 6:02 PM CABLE ENG[employer] Narciso Child YARD LABORER LAB BLOOD ORDERABLE S Final Result [facility] ([place]) 1 [facility] Department [place] [address] * Differential, auto (11/27/2024 2:10 PM CABLE ENG[employer]) Neutrophil abs 5.4 1.5 - 6.5 K/cumm Comment:Testing performed by : [address] [address] Imm gran abs 0.1 0.0 - 0.1 K/cumm [facility] (VON) Comment:Testing performed by : [facility], [address] [place] [address]., [address] Lymphocyte abs 1.1 0.8 - 3.3 K/cumm [facility] (VON) Comment:Testing performed by : [address] [address] Monocyte abs 0.6 0.2 - 0.8 K/cumm [facility] (VON) Comment:Testing performed by : [address] [address] Eosinophil abs 0.3 0.0 - 0.5 K/cumm [facility] (VON) Comment:Testing performed by : [facility], [address] [place] [address]., [address] Basophil abs 0.1 0.0 - 0.1 K/cumm [facility] (VON) Comment:Testing performed by : [facility], [address] [place] [address]., [address] Neutrophil pct 70.9 % [facility] ([facility]ON) Comment: Interpretive Data Percent cell count reference ranges are not reported, since discordance with absolute values may lead to misinterpretation of CBC data. Current Interpretive Data was last revised on 2018. Testing performed by: [facility], [address] [place] [address]., [address] Imm gran pct 0.8 % [facility] ([facility]ON) Comment: Interpretive Data Percent cell count reference ranges are not reported, since discordance with absolute values may lead to misinterpretation of CBC data. Current Interpretive Data was last revised on 2018. Testing performed by: [facility], [address] [place] [address]., [address] Lymphocyte pct 14.2 % [facility] ([facility]ON) Comment: Interpretive Data Percent cell count reference ranges are not reported, since discordance with absolute values may lead to misinterpretation of CBC data. Current Interpretive Data was last revised on 2018. Testing performed by: [address] [address] Monocyte pct 8.5 % [facility] ([facility]ON) Comment: Interpretive Data Percent cell count reference ranges are not reported, since discordance with absolute values may lead to misinterpretation of CBC data. Current Interpretive Data was last revised on 2018. Testing performed by: [facility], [address] [place] [address]., [address] Eosinophil pct 4.5 % [facility] ([facility]ON) Comment: Interpretive Data Percent cell count reference ranges are not reported, since discordance with absolute values may lead to misinterpretation of CBC data. Current Interpretive Data was last revised on 2018. Testing performed by: [address] [address] Basophil pct 1.1 % [facility] ([facility]ON) Comment: Interpretive Data Percent cell count reference ranges are not reported, since discordance with absolute values may lead to misinterpretation of CBC data. Current Interpretive Data was last revised on 2018. Testing performed by: [address], [address] Blood 11/27/2024 2:10 PM CABLE [employer] 11/27/2024 5:38 PM [employer]ABLE [employer] Narciso Child YARD LABORER LAB BLOOD ORDERABLE S Final Result [facility] (VON) 1 [facility] Department [place] [address] * TB test, quantiferon gold (11/27/2024 2:10 PM CABLE ENG[employer]) [facility] Quantiferon TB Gold Negative Negative [place] ref Lab Comment: No interferon-gamma response to [...] Interferon-gamma level <0.35 IU/mL. Testing performed by: [address] [address] TB-Nil 0.00 IUnits/mL [facility] ([facility]ON) Comment:Testing performed by : [address] [address] TB2-Nil 0.00 IUnits/mL [facility] ([facility]ON) Comment:Testing performed by : [address] [address] Mitogen-Nil 8.38 IUnits/mL [facility]IO [facility] (VON) Comment:Testing performed by : [address] [address] NIL 0.01 IUnits/mL [facility] ([facility]ON) Comment: Test Performed by: [facility] [address] [id number] [employer] Support Worker: Mahi Peterson Ph.D.; CLIA# [id number] Testing performed by: [address], [address] Blood 11/27/2024 2:10 PM CABLE ENG[employer] 11/27/2024 5:38 PM [employer]ABLE [employer] Narciso Child YARD LABORER LAB BLOOD ORDERABLE S Final Result [facility] ([facility]ON) 1 [facility] Department [place] [address] [place] ref Lab * (ABNORMAL) CBC with auto differential (11/27/2024 2:10 PM CABLE ENG[employer]) WBC 7.5 3.8 - 9.9 K/cumm Comment:Testing performed by : [address], [address] Hgb 14.9 13.0 - 17.5 g/dL [facility] ([facility]ON) Comment:Testing performed by : [address], [address] Hct 46.6 38.9 - 50.3 % [facility] ([facility]ON) Comment:Testing performed by : [address], [address] Plt 276 150 - 400 K/cumm [facility] (VON) Comment:Testing performed by : [address], [address] MPV 9.8 9.1 - 12.3 fL [facility] ([facility]ON) Comment:Testing performed by : [address], [address] RBC 5.27 4.30 - 5.80 M/cumm [facility] ([facility]ON) Comment:Testing performed by : [address], [address] MCV 88.4 81.3 - 96.4 fL [facility] ([facility]ON) Comment:Testing performed by : [facility], [address] [place] [address]., [address] MCH 28.3 27.1 - 33.3 pg [facility] (VON) Comment:Testing performed by : [facility], [address] [place] [address], [address] MCHC 32.0(L) 32.3 - 35.7 g/dL [facility] (VON) Comment:Testing performed by : [facility], [address] [place] [address], [address] RDW CV 12.5 11.1 - 14.9 % [facility] (VON) Comment:Testing performed by : [facility], [address] [place] [address], [address] RDW SD 40.7 35.7 - 48.1 fL [facility] (VON) Comment:Testing performed by : [facility], [address] [place] [address], [address] NRBC abs 0.00 0.00 - 0.01 K/cumm [facility] (VON) Comment:Testing performed by : [facility], [address] [place] [address], [address] Blood 11/27/2024 2:10 PM CABLE ENG[employer] 11/27/2024 5:38 PM CABLE ENG[employer] Narciso Child YARD LABORER LAB BLOOD ORDERABLE S Final Result [facility] (VON) 1 [facility] Department [place] [address] * Hepatitis B core antibody, IgM Blood (11/27/2024 2:10 PM CABLE ENG[employer]) Hep B core IgM Nonreactive Nonreactive Comment: Interpretive Data If HepB Core IgM Ab is reported as Equivocal, a new sample should be drawn in two weeks for testing. Current interpretive data was last revised on 19. Testing performed by: [address], [address] Blood 11/27/2024 2:10 PM CABLE ENG[employer] 11/27/2024 5:38 PM CABLE ENG[employer] [facility] LAB[facility] LAB MICROBIOLOGY - GENERAL ORDERABLES Final Result [facility] (VON) 1 [facility] [place] [address] * Hepatitis B surface antibody (immune status) Blood (11/27/2024 2:10 PM CABLE ENG[employer]) HBsAb (immune status) Nonreactive Comment: Interpretive Data [...] last revised on 19. Testing performed by: [facility], [address] [place] [address]., [address] Blood 11/27/2024 2:10 PM CABLE ENG[employer] 11/27/2024 5:38 PM CABLE ENG[employer] [facility] YARD LABORER LAB MICROBIOLOGY - GENERAL ORDERABLES Final Result Performing Organization Address City/[facility] Co de Phone Number V[facility]IO [facility] (VON) [address] [place] [address] * Hepatitis B Surface Antigen Blood (11/27/2024 2:10 PM CABLE ENG[employer]) HepBsAg Nonreactive Nonreactive Comment:Testing performed by : [facility], [address] [place] [address]., [address] Blood 11/27/2024 2:10 PM CABLE ENG[employer] 11/27/2024 5:38 PM CABLE ENGINE[employer] [facility]iso [facility] YARD LABORER LAB MICROBIOLOGY - GENERAL ORDERABLES Final Result [facility] (VON) 1 [facility] [place] [address] * Erythrocyte sedimentation rate (11/27/2024 2:10 PM CABLE ENG[employer]) Pathologist [facility] Erythrocyte sedimentation rate 11 1 - 20 mm/hr Comment:Testing performed by : [facility], [address] [place] [address]., [address] Blood 11/27/2024 2:10 PM CABLE ENG[employer]ANT 11/27/2024 5:38 PM CABLE ENGINEER [employer]ANT [facility] YARD LABORER LAB BLOOD ORDERABLE S Final Result Performing Organization Address City/[facility]/ZIP Co de Phone Number V[facility]IO [facility] (NEBO) 1 [facility] [place] [address] * CRP (acute phase) (11/27/2024 2:10 PM CABLE ENGINEER [employer]) [facility] CRP <3.0 <=10.0 mg/L Comment:Testing performed by : [facility], [address] [place] [address], [id number] Blood 11/27/2024 2:10 PM CABLE ENGINEER [employer]ANT 11/27/2024 5:38 PM CABLE ENGINEER [employer]ANT [facility] YARD LABORER LAB BLOOD ORDERABLE S Final Result Performing Organization Address City/[facility]/ZIP Co de Phone Number [facility] (VON) 1 [facility] [place] [address] * (ABNORMAL) Comprehensive metabolic panel (11/27/2024 2:10 PM CABLE ENG[employer]) [facility] Sodium 141 135 - 145 mmol/L Comment:Testing performed by : [facility], [address] [place] [address]., [address] Potassium, pl 4.3 3.3 - 4.9 mmol/L [facility] (VON) Comment:Testing performed by : [facility], [address] [place] [address]., [address] Chloride 104 97 - 110 mmol/L [facility] (VON) Comment:Testing performed by : [facility], [address] [place] [address]., [address] CO2 29 22 - 32 mmol/L [facility] (VON) Comment:Testing performed by : [facility], [address] [place] [address]., [address] Anion gap 8 2 - 15 mmol/L [facility] ([facility]) Comment:Testing performed by : [facility], [address] [place] [address]., [address] BUN 11 6 - 25 mg/dL [facility] ([facility]) Comment:Testing performed by : [address] [address] Creatinine 0.91 0.80 - 1.30 mg/dL [facility] ([facility]) Comment: Icteric sample, test results may be affected. Testing performed by: [address] [address] Glucose 72 70 - 199 mg/dL [facility]ERN[facility] [...] was last revised 2022. Testing performed by: [address] [address] Calcium 9.0 8.5 - 10.3 mg/dL [facility] ([facility]) Comment:Testing performed by : [address] [address] Bilirubin, total 1.5(H) 0.1 - 1.2 mg/dL [facility] ([facility]) Comment:Testing performed by : [address] [address] Protein, pl 7.1 6.5 - 8.5 g/dL [facility] ([facility]ON) Comment:Testing performed by : [address] [address] Albumin 4.0 3.5 - 5.0 g/dL [facility] ([facility]) Comment:Testing performed by : [facility], [address] [place] [address]., [address] Alk phos 59 40 - 130 Units/L [facility] (VON) Comment:Testing performed by : [facility], [address] [place] [address], [address] ALT 15 7 - 55 Units/L [facility] ([facility] Comment:Testing performed by : [facility], [address] [place] [address], [address] AST 28 10 - 50 Units/L [facility] (VON) Comment:Testing performed by : [facility], [address] [place] [address], [address] Blood 11/27/2024 2:10 PM CABLE ENGINEER [employer] 11/27/2024 5:38 PM CABLE ENGINEER [employer] Narciso Child YARD LABORER LAB BLOOD ORDERABLE S Final Result [facility] ([place]) 1 [facility] Department [place] [address] * Surgical pathology (11/19/2024 11:34 AM CABLE ENGINEER [employer]IDE PLANT) Tissue specimen (specimen) (Colon, Biopsy) 11/19/2024 9:54 AM CABLE ENGINEER [employer]ANT Narrative PATHOLOGY [facility] ([place]) - 11/20/2024 5:56 PM CABLE ENGINEER [employer] EPIC results best viewed via link to PDF [facility] Department of Pathology [address] [place] [address] Note to Patients: This report may contain [...] Final Report Patient Name: LESIA GAITAN Address: [address] [place] [address] [place] [address]- Gender: M : 1950 (Age: 74) Service: Gastro Location: [facility] #: [id number] Patient Type: [facility] Taken: 11/19/2024 Received: 11/19/2024 Accessioned: 11/19/2024 Reported: [...] determined by the Surgical Pathology Department at [facility] as part of an ongoing production quality manager program and in compliance with federally mandated [...] characteristics determined by the Surgical Pathology Department [facility]. It has not been cleared or approved by the U. S. Food and Drug Administration. Note for decalcified specimens: This assay has not been validated on decalcified tissues. Results should be interpreted with caution given the possibility of false negativity on decalcified specimens us Padma Schwartz MD LAB PATHOLOGY ORDERABLES F inal Result PATHOLOGY [facility] [place]) [address] [place] [address] * Colonoscopy (11/19/2024 8:50 AM CABLE ENGINEER [employer]) Anatomical Region Laterality Modality Other Narrative Procedure Note Padma Schwartz MD - 11/19/2024 8:50 AM CST [facility] Patient Name: Lesia Gaitan Procedure Date: 11/19/2024 8:50 AM Date of : 1950 Admit Type: Outpatient Age: 74 Gender: Male Attending MD: Padma Schwartz M.D. Room: [facility] ENDOSCOPY ROOM 1 Note Status: Finalized Patient [...] under direct vision. The Pediatric Colonoscope [id number]-[id number] was introducedthrough the anus and advanced to [...] 8:50 AM Procedure Code(s): --- Professional --- 37354, Colonoscopy, flexible; with biopsy, single or multiple Diagnosis Code(s): --- Professional --- K51.50, Left sided colitis without complications K64.8, Other hemorrhoids K52.9, Noninfective gastroenteritis and colitis, unspecified K57.30, Diverticulosis of large intestine without perforation orabscess without bleeding CPT copyright 2020 [employer]. All rights reserved. The codes documented in this report are preliminary and upon certified welding inspector reviewmay be revised to meet current compliance requirements. Recognized by the [employer] for promoting quality in endoscopy Padma Schwartz MD ENDOSCOPY PROCEDURES Final Result * PSA screen (11/09/2023 10:51 AM CABLE ENGINEER [employer]) PSA-Total 3.57 <=6.20 ng/mL [facility] ([facility]) [...] revised 22. Blood 11/09/2023 10:5 1 AM CABLE ENGINEER [employer] 11/09/2023 11:51 AM CABLE ENGINEER [employer]ANT Abhijit Jeter MD LAB BLOOD ORDERABLES F inal Result [facility] ([place]) 1 [facility] [place] [address] * Hepatitis C antibody (02/24/2020 4:39 PM CDT) Hep C Ab Nonreactive Nonreactive [facility] ([place]) Comment: Interpretive Data Nonreactive: Antibodies to HCV [...] last revised on 2019. Testing performed by: [facility], [address] [place] [address]., [address] Blood specimen (specimen) 02/24/2020 4:39 PM CDT 02/25/2020 9:35 AM CDT us Sheila Mauro DO LAB MICROBIOLOGY - GENERAL ORDERABLES Final Result [facility] ([place]) 1 [facility] [place] [address] from Last 3 Months or Most Recently Relevant to [place] [address] [place] [address] [facility] MEDICARE ADVANTAGE [facility] MEDICARE Address[facility] [address] [place] [address] [facility] MDCR HMO REF [facility] MEDICARE ADVANTAGE [facility] MEDICARE Address: [address] [address] [place] [address] Advance Directives For more information, please contact: [phone] * Full Code (Latest Code Status on [...] 7:48 AM 12/03/2019 2:02 PM Care Teams Room Inspector Relationship Specialty Start Date End Date Rafat Oswald MD [address] [place] [address] PCP - General Family Practice 11/07/24 Padma Schwartz MD Consulting Physician Gastroenterology 02/24/20 Suleiman Del Cid MD Consulting Physician Neurology 02/24/20 Abhijit Jeter MD Consulting Physician Urology 02/24/20
--- OUTSIDE RECORDS SUMMARY | 2025-01-14 15:46 | XMS_ITS | Clinical Summary ---
Author Organization [facility] Address [address] [place] [address] Care Team Providers Care Watchguard Name Role Phone Rafat Oswald MD Primary Care Provider [phone] Source Comments [facility],non-owned Affiliates and Associated Physician Practices is amultiple site organization consisting of ambulatory clinics and hospital sitesin [place], [place], [place] and [place]. This disclosure is being madepursuant to the Care Everywhere program and may not contain all information available regarding this patient. Last updated 18.[facility] Allergies No known active allergies Encounters Date Type Department Care Team Description 12/15/2024 1:40 PM CDT - 12/15/2024 11:59 PM CDT Hospital Encounter [facility] Imaging Services - MRI [address] [place] [address] Abhijit Jeter MD Discharge Disposition: [...] of 2) 2001 COVID-19 VACCINE (1 - 2024-25 season) 2024 DEPRESSION SCREENING 10/08/2024 MEDICARE AWV CALENDAR YEAR 2024 INFLUENZA VACCINE (Season Ended) 2025 07/15/2019, 07/10/2018, 07/09/2018, Additional history exists Respiratory Syncytial Virus (RSV) Vaccine Pt: or [...] ORDERABLES from Last 3 Months Care Teams Watchguard Relationship Specialty Start Date End Date Rafat Oswald MD [address] [place] [address] PCP - General Family Medicine 12/15/24
--- OUTSIDE RECORDS SUMMARY | 2025-01-14 15:46 | XMS_ITS | Encounter Summary ---
Author Organization [facility] Healthcare Address [address] [place] [address] Care Team Providers Care Fuel Cell Designer Name Role Phone Padma Schwartz MD Unavailable [phone] Suleiman Del Cid MD Unavailable Abhijit Jeter MD Unavailable [phone] Rafat Oswald MD Primary Care Provider [phone] Encounter Details Date Type Department Care Team (Late st Contact Info) Description 11/25/2024 Results Follow-Up [facility] Gastroenterology at [address] [place] [address] Padma Schwartz MD [address] [place] [address] [address] [place] [address] Social History Tobacco Use Types Packs/Day Years [...] on file Legal Sex Male 11:54 PM FLORAL CLERK Gender Identity Male 11/01/2021 11:42 AM FLORAL CLERK Sexual Orientation Not on file documented as of this encounter Plan of Treatment Upcoming Encounters Date Type Department Care Team (Late st Contact Info) Description 11/20/2025 8:00 AM FLORAL CLERK Hospital Encounter [address] [address] Padma Schwartz MD [address] [place] [address] [address] [place] [address] 11/20/2025 8:00 AM FLORAL CLERK - 11/20/2025 8:30 AM FLORAL CLERK Surgery [address] [address] Padma Schwartz MD [address] [place] [address] DR [address] [place] [address] COLONOSCOPY Scheduled Procedures Name Priority Associated Diagnoses Date/Ti me COLONOSCOPY History of colon polyps 11/20/2025 8:00 AM FLORAL CLERK documented as of this encounter Visit Diagnoses Not on filedocumented in this encounter Care Teams Fuel Cell Designer Relationship Specialty Start Date End Date Rafat Oswald MD [address] [facility] [place] [address] PCP - General Family Practice 11/07/24 Padma Schwartz MD Consulting Physician Gastroenterology 02/24/20 Suleiman Del Cid MD Consulting Physician Neurology 02/24/20 Abhijit Jeter MD Consulting Physician Urology 02/24/20 documented as of this encounter
--- OUTSIDE RECORDS SUMMARY | 2025-01-14 15:46 | XMS_ITS | Continuity of Care Document ---
Author Organization [facility] Address [address] [place] [address] [address] [place] [address] Phone Care Team Providers Care Regulatory Affairs Spec Name Role Phone Katey Lima OD Unavailable [...] Yes / No Effective Date File Name Other Directive No N/A N/A WARNING:The information contained in this section is historical and is provided for information only and does not constitute a legal document or any assurance that the information is still accurate. Please verify the information with the hunt of the legal document before using it for clinical purposes. Encounters Encounter Description Practice Location Reason(s) For Visit Diagnoses Date Provider Providers Copied on Encounter Office/outpa tient Visit, Est [facility], [address], [place], [place], [id number], [place] tel:[phone] [place] Professional Complete Exam (chief complaint) Age-related nuclear cataract, bilateralIris nevus, rightMacular RPE mottlingVitreo us degeneration, left eyeVitreous syneresis of left eye 5 Clarence OD Katey. [address], [address], [place], [place], [id number], [place]. tel:[phone] Referring Provider: Sheila Mauro DO, [address], [place], [address]. tel:[phone] [facility], [address], [place], [place], [id number], [place] tel:[phone] [address] [place] Professional Complete Exam (chief complaint) Age-related nuclear cataract, bilateralIris nevus, rightMacular RPE mottling 0 4 Clarence OD Katey. [address], [address], [place], [place], [address], [place]. tel:[phone] Referring Provider: Sheila Mauro DO, [address], [place], [address]. tel:[phone] [facility], [address], [place], [place], [id number], [place] tel:[phone] [address] [place] Professional Complete Exam (chief complaint) Age-related nuclear cataract, bilateralMacul ar RPE mottlingIris nevus, right 3 Mason Barriga. [address] [facility], [address], [place], [place], [address], [place]. tel:[phone] Referring Provider: Sheila Mauro DO, [address] [facility] [address], [place], [address]. tel:[phone] Family History Family Member Type Diagnosis Age At Onset No Information Payers Payer name Insurance type Covered alliance party ID Authorshanea javed(s) [facility] Medicare Complete CI [id number] Social History Type Description Quantity Date Captured Comments Alcohol Use Details Mar-26-2025 Caffeine Use Details Tobacco Use Status Ex-cigarette [...]
--- OUTSIDE RECORDS SUMMARY | 2025-01-14 15:46 | XMS_ITS | Clinical Summary ---
Author Organization [facility] Building B Address [address] [place] [address] Care Team Providers Care Enlisted Aircrew/Aerial Observer/Gunner Name Role Phone Padma Schwartz MD Unavailable [phone] Suleiman Del Cid MD Unavailable Abhijit Jeter MD Unavailable [phone] Rafat Oswald MD Primary Care Provider [phone] Allergies No known active allergies Medications meclizine [...] PEN) 40 mg/0.4 mL pen injector kitIndications:[facility] erative Colitis Inject 0.4 mL (40 mg total) under the skin every 14 (fourteen) days 6 each 3 12/03/19 Active adalimumab (HUMIRA, CF, PEN) 80 mg/0.8 mL pen injector kitIndications:[facility] erative Colitis Subcutaneous injection-160 mg (given [...] 12/03/2023 Assessment & Plan (12/03/2023 2:44 PM MIGRANT LEADER): Hearing test 48 ounces of caffeine free and soda free fluid daily Consider physical therapy for neck Tinnitus 12/03/2023 Assessment & Plan (12/03/2023 2:44 PM MIGRANT LEADER): Hearing test 48 ounces of caffeine free [...] 10:16 PM CDT): Patient requests referral to ship's surveyor, referral placed. 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 Cont. Current prescription medications, mesalamine. Managed by GI. Esophageal dysphagia 12/06/2021 Tubular adenoma of colon 12/06/2021 History of vertigo 02/24/2021 Oscillopsia 12/10/2020 Degenerative disc disease, cervical 12/08/2020 Lightheadedness 12/03/2020 Assessment & Plan (12/03/2023 2:44 PM MIGRANT LEADER): Hearing test 48 ounces of caffeine free and soda free fluid daily Consider physical therapy for neck Assessment & Plan (12/03/2020 8:11 PM MIGRANT LEADER): Mildly symptomatic. Trial of meclizine. Patient will let me know the name of the PT company he would like for me to refer him to. Go to nearest ER if S/Sxs worsen. C-Spine xrays ordered. Chronic pain of right knee 12/03/2020 Assessment & Plan (12/03/2020 8:12 PM MIGRANT LEADER): Requested referral to Ortho for further eval./mgmt. [...] (10/20/2019): Added automatically from request for surgery [id number] Assessment & Plan (10/20/2019 11:10 AM MIGRANT LEADER): Overdue for colonoscopy. Will have him set this up today. TADEO (obstructive sleep apnea) 11/19/2018 Assessment & Plan (02/25/2020 8:35 AM CDT): Managed by sleep medicine. Assessment & Plan (11/19/2018 1:32 PM MIGRANT LEADER): Non-compliant with CPAP because cannot tolerate mask Will contact us with company name Sleep study done about 15-20 years ago Sleep study was done at [facility] Pt. Does snore, wakes up coughing, [...] Urologist. Assessment & Plan (11/19/2018 1:30 PM MIGRANT LEADER): S/P TURP Followed by Dr. Jose Jeter [...] (10/20/2019): Added automatically from request for surgery [id number] Assessment & Plan (02/24/2021 8:31 PM CDT): Asx. Continue current therapy. Assessment & Plan (12/03/2020 8:11 PM MIGRANT LEADER): Asx, labs ordered. Assessment & Plan (02/25/2020 8:35 AM CDT): Managed by GI. Assessment & Plan (10/20/2019 11:09 AM MIGRANT LEADER): Pt appears to have mild UC disease. [...] [facility] [address] [place] [address] Abby Hicks CPhT 12/03/2024 10:00 AM MIGRANT LEADER Office Visit [facility] at [address] [place] [address] Narciso Child NP Ulcerative 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) (Primary Dx); Tubular adenoma of colon; Gastroesophageal reflux disease with esophagitis without hemorrhage; Schatzki's ring 12/02/2024 Results Follow-Up [facility] at [address] [place] [address] Narciso Child NP 11/28/2024 2:40 PM MIGRANT LEADER - 11/28/2024 4:33 PM MIGRANT LEADER Emergency [facility] Emergency Department [address] [place] [address] Mandeep Damian MD Kidney stone on left side (Primary Dx) Discharge Disposition: Discharge to home or self care 11/28/2024 12:21 PM MIGRANT LEADER - 11/28/2024 11:59 PM MIGRANT LEADER Hospital Encounter [facility] Emergency, Room R Discharge Disposition: Discharge to home or self care 11/27/2024 2:10 PM MIGRANT LEADER Lab [facility] [address] [place] [phone] Ulcerative 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) 11/27/2024 Telephone [facility] at [address], [place] [phone] Janie Bagley MA 11/26/2024 Telephone [facility] at [address], [place] [address] Analilia Edwards Schedule Colonoscopy 11/25/2024 8:30 AM MIGRANT LEADER Office Visit [facility] [address] [place] [address] [address] [phone] Suleiman Del Cid MD TADEO (obstructive sleep apnea) (Primary Dx); Hypersomnia with sleep apnea; Overweight (BMI 25.0-29.9) 11/25/2024 Results Follow-Up [facility] at [address], [place] [address] Padma Schwartz MD 11/19/2024 9:32 AM MIGRANT [place] [address] Amy Gandara MD 11/19/2024 9:00 AM MIGRANT LEADER - 11/19/2024 9:30 [place] [address] Padma Schwartz MD COLON BIOPSY 11/19/2024 7:45 AM MIGRANT LEADER - 11/19/2024 10:45 AM MIGRANT [place]AD[place] [address] Padma Schwartz MD Ulcerative 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); Tubular adenoma of colon Discharge Disposition: Discharge to home or self care from Last 3 Months Immunizations Immunization Administration Dates Next Due COVID-19 mRNA ([employer]) 0.3 m L (30 mcg) vaccine (12 [...] on file Legal Sex Male 11:54 PM MIGRANT LEADER Gender Identity Male 11/01/2021 11:42 AM MIGRANT LEADER Sexual Orientation Not on file Obstetrics History Last Filed Vital Signs Vital Sign Reading Time Taken Comments Blood Pressure 121/76 12/03/2024 10:02 AM MIGRANT LEADER Pulse 68 12/03/2024 10:02 AM MIGRANT LEADER Temperature 36.8 C (98.2 F) 11/28/2024 12:50 PM MIGRANT LEADER Respiratory Rate 17 11/28/2024 12:50 PM MIGRANT LEADER Oxygen Saturation 98% 12/03/2024 10:02 AM MIGRANT LEADER Inhaled Oxygen Concentration - - Weight 91.3 kg (201 lb 4.8 oz) 12/03/2024 10:02 AM MIGRANT LEADER Height 182.9 cm (6') 12/03/2024 10:02 AM MIGRANT LEADER Body Mass Index 27.3 12/03/2024 10:02 AM MIGRANT LEADER Plan of Treatment Upcoming Encounters Date Type Department Care Team (Late st Contact Info) Description 11/20/2025 8:00 AM MIGRANT LEADER Hospital Encounter [address] [address] Padma Schwartz MD [address] [place] [address] [address] WINN [address] [place] [address] 11/20/2025 8:00 AM MIGRANT LEADER - 11/20/2025 8:30 AM MIGRANT LEADER Surgery [address] [address] Padma Schwartz MD [address] [place] [address] DR WINN [address] [place] [address] COLONOSCOPY Scheduled Procedures Name Priority Associated Diagnoses Date/Ti me COLONOSCOPY History of colon polyps 11/20/2025 8:00 AM MIGRANT LEADER Health Maintenance Due Date Last Done Comments [...] PELVIS WO CONTRAST ED 11/28/2024 3:27 PM MIGRANT LEADER URINALYSIS, MICROSCOPIC ONLY STAT 11/28/2024 1:08 PM MIGRANT LEADER URINALYSIS AND REFLEX TO MICROSCOPIC AND CULTURE STAT 11/28/2024 1:08 PM MIGRANT LEADER EGFR STAT 11/28/2024 1:04 PM MIGRANT LEADER DIFFERENTIAL AUTO STAT 11/28/2024 1:0 4 PM MIGRANT LEADER COMPREHENSIVE METABOLIC PANEL STAT 11/28/2024 1:04 PM MIGRANT LEADER CBC WITH AUTO DIFFERENTIAL STAT 11/28/2024 1:04 PM MIGRANT LEADER EGFR Routine 11/27/2024 2:10 PM MIGRANT LEADER Ulcerative 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) DIFFERENTIAL AUTO Routine 11/27/2024 2:1 0 PM MIGRANT LEADER Ulcerative 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) CBC WITH AUTO DIFFERENTIAL Routine 11/27/2024 2:10 PM MIGRANT LEADER Ulcerative 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) COMPREHENSIVE METABOLIC PANEL Routine 11/27/2024 2:10 PM MIGRANT LEADER Ulcerative 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) CRP (ACUTE PHASE) Routine 11/27/2024 2:1 0 PM MIGRANT LEADER Ulcerative 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) ERYTHROCYTE SEDIMENTATION RATE Routine 11/27/2024 2:10 PM MIGRANT LEADER Ulcerative 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) TB TEST, QUANTIFERON GOLD Routine 11/27/2024 2:10 PM MIGRANT LEADER Ulcerative 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) HEPATITIS B SURFACE ANTIBODY (IMMUNE STATUS) Routine 11/27/2024 2:10 PM MIGRANT LEADER Ulcerative 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) HEPATITIS B SURFACE ANTIGEN Routine 11/27/2024 2:10 PM MIGRANT LEADER Ulcerative 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) HEPATITIS B CORE IGM Routine 11/27/2024 2:10 PM MIGRANT LEADER Ulcerative 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) SURGICAL PATHOLOGY STAT 11/19/2024 11 :34 AM MIGRANT LEADER Ulcerative 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) Tubular adenoma of colon COLON BIOPSY 11/19/2024 9:23 AM MIGRANT LEADER Ulcerative 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) Tubular adenoma of colon COLONOSCOPY 11/19/2024 8:50 AM MIGRANT LEADER PSA SCREEN Routine 11/09/2023 10:51 AM MIGRANT LEADER HEPATITIS C ANTIBODY Routine 02/24/2020 4:39 PM CDT Encounter for hepatitis C screening test for low risk patient from Last 3 Months or Most Recently Relevant to Health Maintenance Results * CT Abdomen Pelvis WO Contrast (11/28/2024 3:27 PM MIGRANT LEADER) Anatomical Region Laterality Modality Body N/A Computed Tomogra phy 11/28/2024 3:34 PM MIGRANT LEADER Narrative 11/28/2024 3:49 PM MIGRANT LEADER EXAM DESCRIPTION: CT ABDOMEN PELVIS WO CONTRAST [...] Ambrose Christianson M.D. AG: DEVI Report ID: [id number] Reading Location: [id number] Procedure Note Ambrose Christianson MD - 11/28/2024 [...] by Ambrose Lim.D. AG: DEVI Report ID: [id number] Reading Location: [id number] Mandeep Damian MD IMG CT PROCEDURES Final Resu lt * (ABNORMAL) Urinalysis reflex to microscopic and culture Urine (11/28/2024 1:08 PM MIGRANT LEADER) Color, ur Straw Yellow Clarity, ur Clear [...] tendency for uric acid stone formation. Source: [facility] [employer] Current Interpretive Data was last revised on [...] [facility] ([facility]) Urine 11/28/2024 1:08 PM MIGRANT LEADER 11/28/2024 1:11 PM MIGRANT LEADER Mandeep Damian MD LAB MICROBIOLOGY - GENERAL O RDERABLES Final Result [facility] ([facility]) 1 [facility] [place] [address] * (ABNORMAL) Urinalysis, microscopic only (11/28/2024 1:08 PM MIGRANT LEADER) WBC, ur 0-5 0 - 5 /HPF RBC, ur >50(A) 0 - 2 /HPF [facility] ([place]) Mucous, ur Present(A) V[facility]IO [facility] ([place]) Culture Reflex Comment Reflex conditions for urine culture (WBC >10) not met. [facility] ([place]) Urine 11/28/2024 1:08 PM MIGRANT LEADER 11/28/2024 1:11 PM MIGRANT LEADER Mandeep Damian MD LAB URINE ORDERABLES Final R esult [facility] ([place]) 1 [facility] Department [place] [address] * eGFR (11/28/2024 1:04 PM MIGRANT LEADER) eGFR >90 >=60 mL/min/1. 73 m2 Comment: [...] last reviewed 2021. Blood 11/28/2024 1:04 PM MIGRANT LEADER 11/28/2024 1:11 PM MIGRANT LEADER Mandeep Damian MD LAB BLOOD ORDERABLES Final R esult [facility] ([place]) 1 [facility] [place] [address] * Differential, auto (11/28/2024 1:04 PM MIGRANT LEADER) Neutrophil abs 6.3 1.5 - 6.5 K/cumm [...] revised on 2018. Blood 11/28/2024 1:04 PM MIGRANT LEADER 11/28/2024 1:11 PM MIGRANT LEADER Mandeep Damian MD LAB BLOOD ORDERABLES Final R esult [facility] ([facility]) 1 [facility] Department [place] [address] * CBC with auto differential (11/28/2024 1:04 PM MIGRANT LEADER) WBC 8.1 3.8 - 9.9 K/cumm Hgb 14.8 13.0 - 17.5 g/dL [facility] Hct 43.8 38.9 - 50.3 % [facility] ([facility] Plt 254 150 - 400 K/cumm [facility] ([facility] MPV 9.7 9.1 - 12.3 fL [facility] RBC 5.14 4.30 - 5.80 M/cumm [facility] MCV 85.2 81.3 - 96.4 fL [facility] MCH 28.8 27.1 - 33.3 pg [facility] MCHC 33.8 32.3 - 35.7 g/dL [facility] RDW CV 12.2 11.1 - 14.9 % [facility] RDW SD 38.1 35.7 - 48.1 fL [facility] NRBC abs 0.00 0.00 - 0.01 K/cumm [facility] Blood Venous blood specimen / Unknown 11/28/2024 1:04 PM MIGRANT LEADER 11/28/2024 1:11 PM MIGRANT LEADER Mandeep Damian MD LAB BLOOD ORDERABLES Final R esult [facility] ([facility]) 1 [facility] Department [place] [address] * Comprehensive metabolic panel (11/28/2024 1:04 PM MIGRANT LEADER) Sodium 140 135 - 145 mmol/L Potassium, pl 4.5 3.3 - 4.9 mmol/L [facility] ([facility]) Chloride 104 97 - 110 mmol/L [facility] ([facility]) CO2 26 22 - 32 mmol/L [facility] ([place]) Anion gap 10 2 - 15 mmol/L [...] blood specimen / Unknown 11/28/2024 1:04 PM MIGRANT LEADER 11/28/2024 1:11 PM MIGRANT LEADER Mandeep Damian MD LAB BLOOD ORDERABLES Final R esult Performing Organization Address City/[facility]/ZIP Co de Phone Number [facility] ([place]) 1 [facility] [place] [address] * eGFR (11/27/2024 2:10 PM MIGRANT LEADER) eGFR 89 >=60 mL/min/1. 73 m2 Comment: [...] was last reviewed 2021. Testing performed by: [address] [address] Blood 11/27/2024 2:10 PM MIGRANT LEADER 11/27/2024 6:02 PM MIGRANT LEADER Narciso Child NP LAB BLOOD ORDERABLE S Final Result [facility] ([place]) 1 [facility] [place] [address] * Differential, auto (11/27/2024 2:10 PM MIGRANT LEADER) Neutrophil abs 5.4 1.5 - 6.5 K/cumm Comment:Testing performed by : [address] [address] Imm gran abs 0.1 0.0 - 0.1 K/cumm [facility] ([facility]) Comment:Testing performed by : [facility], [address] [place] [address]., [address] Lymphocyte abs 1.1 0.8 - 3.3 K/cumm [facility] ([facility]) Comment:Testing performed by : [facility], [address] [place] [address]., [address] Monocyte abs 0.6 0.2 - 0.8 K/cumm [facility] ([facility]) Comment:Testing performed by : [facility], [address] [place] [address]., [address] Eosinophil abs 0.3 0.0 - 0.5 K/cumm [facility] ([facility]) Comment:Testing performed by : [facility], [address] [place] [address]., [address] Basophil abs 0.1 0.0 - 0.1 K/cumm [facility] ([facility]) Comment:Testing performed by : [address] [address] Neutrophil pct 70.9 % [facility] ([facility]) Comment: Interpretive Data Percent cell count reference ranges are not reported, since discordance with absolute values may lead to misinterpretation of CBC data. Current Interpretive Data was last revised on 2018. Testing performed by: [facility], [address] [place] [address]., [address] Imm gran pct 0.8 % [facility] ([facility]) Comment: Interpretive Data Percent cell count reference ranges are not reported, since discordance with absolute values may lead to misinterpretation of CBC data. Current Interpretive Data was last revised on 2018. Testing performed by: [facility], [address] [place] [address]., [address] Lymphocyte pct 14.2 % [facility] ([facility]) Comment: Interpretive Data Percent cell count reference ranges are not reported, since discordance with absolute values may lead to misinterpretation of CBC data. Current Interpretive Data was last revised on 2018. Testing performed by: [address] [address] Monocyte pct 8.5 % [facility] ([facility]) Comment: Interpretive Data Percent cell count reference ranges are not reported, since discordance with absolute values may lead to misinterpretation of CBC data. Current Interpretive Data was last revised on 2018. Testing performed by: [facility], [address] [place] [address]., [address] Eosinophil pct 4.5 % ANTHONY GUPTA (VON) Comment: Interpretive Data Percent cell count reference ranges are not reported, since discordance with absolute values may lead to misinterpretation of CBC data. Current Interpretive Data was last revised on 2018. Testing performed by: [facility], [address] [place] [address]., [address] Basophil pct 1.1 % [facility] ([place]) Comment: Interpretive Data Percent cell count reference ranges are not reported, since discordance with absolute values may lead to misinterpretation of CBC data. Current Interpretive Data was last revised on 2018. Testing performed by: [address] [address] Blood 11/27/2024 2:10 PM MIGRANT LEADER 11/27/2024 5:38 PM MIGRANT LEADER Narciso Child STEEL POURER HELPER LAB BLOOD ORDERABLE S Final Result [facility] ([place]) 1 [facility] Department [place] [address] * TB test, quantiferon gold (11/27/2024 2:10 PM MIGRANT LEADER) [facility] Quantiferon TB Gold Negative Negative [facility] Comment: No interferon-gamma response to [...] Interferon-gamma level <0.35 IU/mL. Testing performed by: [address] [address] TB-Nil 0.00 IUnits/mL [facility] ([facility]) Comment:Testing performed by : [facility], [address] [place] [address], [address] TB2-Nil 0.00 IUnits/mL [facility] ([facility]) Comment:Testing performed by : [facility], [address] [place] [address], [address] Mitogen-Nil 8.38 IUnits/mL [facility]AN[facility] A [facility] (VON) Comment:Testing performed by : [facility], [address] [place] [address], [address] NIL 0.01 IUnits/mL [facility] ([facility]) Comment: Test Performed by: [address] [address] Audio Production Engineer: Mahi Peterson Ph.D.; CLIA# [id number] Testing performed by: [address], [address] Blood 11/27/2024 2:10 PM MIGRANT LEADER 11/27/2024 5:38 PM MIGRANT LEADER Narciso Child STEEL POURER HELPER LAB BLOOD ORDERABLE S Final Result [facility] ([facility]) 1 [facility] Department [place] [address] [facility] [facility] * (ABNORMAL) CBC with auto differential (11/27/2024 2:10 PM MIGRANT LEADER) Pathologist [facility] WBC 7.5 3.8 - 9.9 K/cumm Comment:Testing performed by : [facility], [address] [place] [address], [address] Hgb 14.9 13.0 - 17.5 g/dL [facility] ([facility]) Comment:Testing performed by : [address], [address] Hct 46.6 38.9 - 50.3 % [facility] ([facility]) Comment:Testing performed by : [address], [address] Plt 276 150 - 400 K/cumm [facility] ([facility]) Comment:Testing performed by : [facility], [address] [place] [address], [address] MPV 9.8 9.1 - 12.3 fL [facility] ([facility]) Comment:Testing performed by : [facility], [address] [place] [address], [address] RBC 5.27 4.30 - 5.80 M/cumm [facility] ([facility]) Comment:Testing performed by : [facility], [address] [place] [address], [address] MCV 88.4 81.3 - 96.4 fL [facility] ([facility]) Comment:Testing performed by : [facility], [address] [place] [address], [address] MCH 28.3 27.1 - 33.3 pg [facility] ([facility]) Comment:Testing performed by : [address], [address] MCHC 32.0(L) 32.3 - 35.7 g/dL [facility] ([facility]) Comment:Testing performed by : [address], [address] RDW CV 12.5 11.1 - 14.9 % [facility] ([facility]) Comment:Testing performed by : [address], [address] RDW SD 40.7 35.7 - 48.1 fL [facility] ([facility]) Comment:Testing performed by : [address], [address] NRBC abs 0.00 0.00 - 0.01 K/cumm [facility] ([facility]) Comment:Testing performed by : [address], [address] Blood 11/27/2024 2:10 PM MIGRANT LEADER 11/27/2024 5:38 PM MIGRANT LEADER Narciso Child STEEL POURER HELPER LAB BLOOD ORDERABLE S Final Result [facility] ([facility]) 1 [facility] Department [place] [address] * Hepatitis B core antibody, IgM Blood (11/27/2024 2:10 PM MIGRANT LEADER) Pathologist [facility] Hep B core IgM Nonreactive Nonreactive Comment: Interpretive Data If HepB Core IgM Ab is reported as Equivocal, a new sample should be drawn in two weeks for testing. Current interpretive data was last revised on 19. Testing performed by: [address] [address] Blood 11/27/2024 2:10 PM MIGRANT LEADER 11/27/2024 5:38 PM MIGRANT LEADER [facility] LAB MICROBIOLOGY - GENERAL ORDERABLES Final Result Performing Organization Address City/[facility] Co de Phone Number [facility] [place]) 1 [facility] [place] [address] * Hepatitis B surface antibody (immune status) Blood (11/27/2024 2:10 PM MIGRANT LEADER) Pathologist [facility] HBsAb (immune status) Nonreactive Comment: Interpretive Data [...] last revised on 19. Testing performed by: [facility], [address] [place] [address]., [address] Blood 11/27/2024 2:10 PM MIGRANT LEADER 11/27/2024 5:38 PM MIGRANT LEADER [facility] LAB MICROBIOLOGY - GENERAL ORDERABLES Final Result Performing Organization Address City/[facility] Co de Phone Number [facility] [place]) 1 [facility] [place] [address] * Hepatitis B Surface Antigen Blood (11/27/2024 2:10 PM MIGRANT LEADER) Pathologist [facility] HepBsAg Nonreactive Nonreactive Comment:Testing performed by : [facility], [address] [place] [address]., [address] Blood 11/27/2024 2:10 PM MIGRANT LEADER 11/27/2024 5:38 PM MIGRANT LEADER [facility] [employer] LAB MICROBIOLOGY - GENERAL ORDERABLES Final Result VIRGILIO GU[facility]A ([place]) 1 [facility] [place] [address] * Erythrocyte sedimentation rate (11/27/2024 2:10 PM MIGRANT LEADER) [facility] Erythrocyte sedimentation rate 11 1 - 20 mm/hr Comment:Testing performed by : [facility], [address] [place] [address], [address] Blood 11/27/2024 2:10 PM MIGRANT LEADER 11/27/2024 5:38 PM MIGRANT LEADER [facility] STEEL POURER HELPER LAB BLOOD ORDERABLE S Final Result Performing Organization Address [facility]/ZIP Co de Phone Number VIRGILIO [facility]PTA ([place]) 1 [place] [address] * CRP (acute phase) (11/27/2024 2:10 PM MIGRANT LEADER) [facility] CRP <3.0 <=10.0 mg/L Comment:Testing performed by : [facility], [address] [place] [address], [place]., [address] Blood 11/27/2024 2:10 PM MIGRANT LEADER 11/27/2024 5:38 PM MIGRANT LEADER Narciso [facility] STE[employer] POURER HELPER LAB BLOOD ORDERABLE S Final Result VIRGILIO GUPTA ([place]ON) 1 [place] [address] * (ABNORMAL) Comprehensive metabolic panel (11/27/2024 2:10 PM MIGRANT LEADER) Sodium 141 135 - 145 mmol/L Comment:Testing performed by : [facility], [address] [place] [address]., [address] Potassium, pl 4.3 3.3 - 4.9 mmol/L [facility] ([facility]) Comment:Testing performed by : [facility], [address] [place] [address]., [address] Chloride 104 97 - 110 mmol/L [facility] ([facility]) Comment:Testing performed by : [address] [address] CO2 29 22 - 32 mmol/L [facility] ([facility]) Comment:Testing performed by : [address], [address] Anion gap 8 2 - 15 mmol/L [facility] ([facility]) Comment:Testing performed by : [address], [address] BUN 11 6 - 25 mg/dL [facility] ([facility]) Comment:Testing performed by : [address], [address] Creatinine 0.91 0.80 - 1.30 mg/dL [facility] ([facility]) Comment: Icteric sample, test results may be affected. Testing performed by: [address], [address] Glucose 72 70 - 199 mg/dL [facility] [...] was last revised 2022. Testing performed by: [address], [address] Calcium 9.0 8.5 - 10.3 mg/dL [facility] ([facility]) Comment:Testing performed by : [address] [address] Bilirubin, total 1.5(H) 0.1 - 1.2 mg/dL [facility] ([facility]) Comment:Testing performed by : [facility], [address] [place] [address], [address] Protein, pl 7.1 6.5 - 8.5 g/dL [facility] ([facility]) Comment:Testing performed by : [facility], [address] [place] [address], [id number] Albumin 4.0 3.5 - 5.0 g/dL [facility] ([facility]) Comment:Testing performed by : [facility], [address] [place] [address], [id number] Alk phos 59 40 - 130 Units/L [facility] ([facility]) Comment:Testing performed by : [address], [id number] ALT 15 7 - 55 Units/L [facility] ([facility]) Comment:Testing performed by : [facility], [address] [place] [address], [id number] AST 28 10 - 50 Units/L [facility] ([facility]) Comment:Testing performed by : [facility], [address] [place] [address], [id number] Blood 11/27/2024 2:10 PM MIGRANT LEADER 11/27/2024 5:38 PM MIGRANT LEADER Narciso Child STEEL POURER HELPER LAB BLOOD ORDERABLE S Final Result [facility] [address] [place] [address] Department [place] [address] * Surgical pathology (11/19/2024 11:34 AM MIGRANT LEADER) Tissue specimen (specimen) (Colon, Biopsy) 11/19/2024 9:54 AM MIGRANT LEADER Narrative PATHOLOGY [facility] ([place]) - 11/20/2024 5:56 PM MIGRANT LEADER EPIC results best viewed via link to PDF [facility] Department of Pathology [address] [place] [phone] Note to Patients: This report may contain [...] Final Report Patient Name: LESIA GAITAN Address: [address] [place] [address] [place] [address]- Gender: M : 1950 (Age: 74) Service: Gastro Location: [facility] Hospital #: [id number] Patient Type: [facility] Taken: 11/19/2024 Received: 11/19/2024 Accessioned: 11/19/2024 Reported: [...] determined by the Surgical Pathology Department at [facility] as part of an ongoing software quality assurance specialist program and in compliance with federally mandated [...] determined by the Surgical Pathology Department [facility]. It has not been cleared or approved by the U. S. Food and Drug Administration. Note for decalcified specimens: This assay has not been validated on decalcified tissues. Results should be interpreted with caution given the possibility of false negativity on decalcified specimens Padma Schwartz MD LAB PATHOLOGY ORDERABLES F inal Result PATHOLOGY [facility]) [address] [place], [place] [id number] * Colonoscopy (11/19/2024 8:50 AM MIGRANT LEADER) Anatomical Region Laterality Modality Other Narrative Procedure Note Padma Schwartz MD - 11/19/2024 8:50 AM CST [facility] Patient Name: Lesia Gaitan Procedure Date: 11/19/2024 8:50 AM Date of : 1950 Admit Type: Outpatient Age: 74 Gender: Male Attending MD: Padma Schwartz M.D. Room: [facility] ENDOSCOPY ROOM 1 Note Status: Finalized Patient [...] under direct vision. The Pediatric Colonoscope [id number] was introducedthrough the anus and advanced to [...] 8:50 AM Procedure Code(s): --- Professional --- 56832, Colonoscopy, flexible; with biopsy, single or multiple Diagnosis Code(s): --- Professional --- K51.50, Left sided colitis without complications K64.8, Other hemorrhoids K52.9, Noninfective gastroenteritis and colitis, unspecified K57.30, Diverticulosis of large intestine without perforation orabscess without bleeding CPT copyright 2020 [employer]. All rights reserved. The codes documented in this report are preliminary and upon firmware developer reviewmay be revised to meet current compliance requirements. Recognized by the [employer] for promoting quality in endoscopy Padma Schwartz MD ENDOSCOPY PROCEDURES Final Result * PSA screen (11/09/2023 10:51 AM MIGRANT LEADER) PSA-Total 3.57 <=6.20 ng/mL [facility] ([facility]) [...] revised 22. Blood 11/09/2023 10:5 1 AM MIGRANT LEADER 11/09/2023 11:51 AM MIGRANT LEADER Abhijit eJter MD LAB BLOOD ORDERABLES F inal Result [facility] ([place] [address] [facility] [place] [address] * Hepatitis C antibody (02/24/2020 4:39 PM CDT) Hep C Ab Nonreactive Nonreactive [facility]) Comment: Interpretive Data Nonreactive: Antibodies to HCV [...] last revised on 2019. Testing performed by: [facility], [address] [place] [address], [place] [address] Blood specimen (specimen) 02/24/2020 4:39 PM CDT 02/25/2020 9:35 AM CDT Sheila Mauro DO LAB MICROBIOLOGY - GENERAL ORDERABLES Final Result Performing Organization Address [facility]/ZIP Co de Phone Number [facility] ([facility]) [address] [facility] [place] [address] from Last 3 Months or Most Recently Relevant to Health Maintenance Insurance (Home) [address] [place] [address] [facility] MEDICARE ADVANTAGE [facility] MDCR HMO REF [facility] MEDICARE ADVANTAGE [place] [id number] Advance Directives For more information, please contact: [phone] * Full Code (Latest Code Status on [...] 7:48 AM 12/03/2019 2:02 PM Care Teams 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
--- OUTSIDE RECORDS SUMMARY | 2025-01-14 15:46 | XMS_ITS | Clinical Summary ---
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 Name Role Phone Unavailable Primary Care Provider [...] series) 2026 Medical Devices Implanted Type Area Pilot Manager Device Identifier Shelf Expiration Date Model / Serial / Lot Imp Prostate Urolift [id number] - [id number] Implanted:Qty: 1 on 02/08/2018 by Abhijit Jeter MD at [facility] Other [employer] 05/20/2019 [id number] / / [id number] Imp Prostate Urolift [id number] - [id number] Implanted:Qty: 1 on 02/08/2018 by Abhijit Jeter MD at [facility] Other N/A: Urinary Bladder [employer]OT[employer] 05/20/2019 [id number] / / [id number] Imp Prostate Urolift [id number] - [id number] Implanted:Qty: 2 on 02/08/2018 by Abhijit Jeter MD at [facility] Other N/A: Urinary Bladder [employer]OTRACT 06/15/2019 [id number] / / [id number] Insurance MEDICARE PART A AND B Advance Directives For more information, please contact: [phone] * Full Code (Latest Code Status on File) Date Activated Date Inactivated Comments 02/08/2018 2:18 PM 02/08/2018 7:56 PM * Full Code Date Activated Date Inactivated Comments 02/08/2018 12:37 PM 02/08/2018 2:18 PM
== END 2025-01-14 14:08 | disposition home or self-care (01) ==
PROVIDERS: PCP Nurse Practitioner Adult Health; Visit Provider Nurse Practitioner Adult Health
DX: E87.5 Hyperkalemia (principal)
CPT/HCPCS: 36415; 84132